=== PATIENT | female | born 1995 | race Caucasian/White ===

== ENCOUNTER 2024-05-25 11:34 | Outpatient (REF) | payer MEDICAID, SELFPAY ==
[2024-05-25 13:23] LABS: MANUAL DIFF FLAG NO
--- OUTSIDE RECORDS SUMMARY | 2024-05-25 13:24 | XMS_ITS | Encounter Summary ---
Author Organization [employer] Address [address] [facility] [facility] 7 [place] [address] Care Team Providers Care Surgical Nurse Practitioner Name Role Phone Unavailable Primary Care Provider Unavailabl e Reason for Visit * Reason Comments Pre-visit Planning SDOH screening compl eted on 08/07/2023 Encounter Details Date Type Department Care Team ([facility] st Contact Info) Description 05/13/2024 Patient Outreach [facility] [address] [place] [address] Amada Gunn MD [address] [place] [address] Pre-visit Planning (SDOH screening completed on 08/07/2023) Social History Tobacco Use Types Packs/Day Years Used Date Smoking Tobacco: Never Assessed Housing Stability Answer Date Recorded What is your housing situation today? I have richard carey 08/14/[address] you li ve. Do you have problems with any of the following? None of the above 08/14/2023 Food Insecurity Answer Date Recorded Within the past 12 months, y ou worried that your food would run out before you got money to buy more: Never True 08/14/2023 Within the past 12 months,th e food you bought just didn't last and you didn't have enough money to get more: Never True 03/2024 Transportation Answer Date Recorded In the past 12 months, has l ack of transportation kept you from medical appts, meetings, work or from getting things needed for daily living? No 08/14/2023 Utilities Answer Date Recorded In the past 12 months, has t he electric, gas, oil or water company threatened to shut off services in your home? No 08/14/2023 Comments Unknown Sex and Gender Information Value Date Recorded Sex Assigned at Female 03/04/2022 10:14 AM EDT Legal Sex Female 10:14 AM EDT Gender Identity Female 03/04/2022 10:14 AM EDT Sexual Orientation Straight 05/25/2024 11 :54 AM EST documented as of this encounter Progress Notes * Heidi Fermin - 05/13/2024 12:58 PM EST CC Heidi. Placed outbound call to patient to complete pre-visit planning. No answer at this time. Patient name and were not confirmed. CC left voicemail requesting return call. Direct contact information provided. documented in this encounter Plan of Treatment Upcoming Encounters Date Type Department Care Team ([facility] st Contact Info) Description 07/12/2024 11:00 AM EDT Telemedicine [facility] [address] [place] [address] Amada Gunn MD [address] [place] [address] documented as of this encounter Visit Diagnoses Not on filedocumented in this encounter
--- OUTSIDE RECORDS SUMMARY | 2024-05-25 13:24 | XMS_ITS | Encounter Summary ---
Author Organization [employer] Address [address] 7[address] [place] [address] Care Team Providers Care Community Development Aide Name Role Phone Unavailable Primary Care Provider Unavailabl e Encounter Details Date Type Department Care Team (Latest Contact Info) Description 05/25/2024 Travel Social History Tobacco Use Types Packs/Day Years Used Date Smoking Tobacco: Never Passive Smoke Exposure: Never Smokeless Tobacco: Never Alcohol Use Standard Drinks/Week Comments Never 0 (1 standard drink = 0.6 oz pur e alcohol) Depression Answer Date Recorded Patient Health Questionnaire-9 Score 1 05/25/2024 Patient Health Questionnaire-9 Score 1 05/25/2024 Last PHQ-9: Questionnaire Data Not on file 0 05/25/2024 Housing Stability Answer Date Recorded What is [...] off services in your home? No 08/14/2023 Depression Answer Date Recorded Patient Health Questionnaire-2 Score 0 05/25/2024 Internet Access Answer Date Recorded Internet Access Q1 Yes 05/25/2024 Internet Access Q2 Not on file 05/25/2024 Comments Unknown Sex and Gender Information Value Date Recorded Sex Assigned at Female 03/04/2022 10:14 AM EDT Legal Sex Female 10:14 AM EDT Gender Identity Female 03/04/2022 10:14 AM EDT Sexual Orientation Straight 05/25/2024 11 :54 AM EST documented as of this encounter Plan of Treatment Upcoming Encounters Date Type Department Care Team (Late st Contact Info) Description 07/12/2024 11:00 AM EDT Telemedicine [facility]ICINE [address] [place] [address] Amada Gunn MD [address] [place] [address] documented as of this encounter Visit Diagnoses Not on filedocumented in this encounter Additional Health Concerns Assessment Noted Time PHQ-9 Depression Total Score: 1 05/25/19 25 10:52 AM EST documented as of this encounter
--- OUTSIDE RECORDS SUMMARY | 2024-05-25 13:24 | XMS_ITS | Clinical Summary ---
Author Organization [employer] [facility] Address [address] [place] [address] 7 [place] [address] Care Team Providers Care Residence Leasing Agent Name Role Phone Unavailable Primary Care Provider Unavailabl e Allergies Active Allergy Reactions Criticality Noted Date Comments Penicillins Hives 05/25/2024 Medications aspirin-acetamin ophen-caffeine (Excedrin Migraine) 250-250-65 MG tabletIndication s:Migraine with aura and without status migrainosus, not intractable Take 1 tablet by mouth every 8 (eight) hours if needed for headaches for up to 10 days. 30 tablet 06/04/19 25 Active Active Problems Problem Noted Date Diagnosed Date Migraine with aura and witho ut status migrainosus, not intractable 05/25/2024 Iron (Fe) deficiency anemia 05/25/2024 Other chest pain 05/25/2024 Palpitations 05/25/2024 Encounters Date Type Department Care Team Description 05/25/2024 10:15 AM EST Office Visit [facility] [address] [place] [phone] Amada Gunn MD Migraine with aura and without status migrainosus, not intractable (Primary Dx); Iron deficiency anemia, unspecified iron deficiency anemia type; Other chest pain; Palpitations 05/25/2024 Travel 05/21/2024 Telephone [facility] [address] [place] [phone] Maggy Beck, MICKY Care Management (C3CM appointment reminder) 05/13/2024 Patient Outreach [facility] [address] [place] [address] Amada Gunn MD Pre-visit Planning (SDOH screening completed on 08/07/2023) 04/29/[address] [address] Maggy Beck, MICKY Care Management (C3 follow up call) 03/31/[address] [address] Maggy Beck RN Care Management ([facility] TC #[id number]) 03/04/[address] [address] Maggy Beck RN Care Management (C3 follow up call) from Last 3 Months Social History Tobacco Use Types Packs/Day Years Used Date Smoking Tobacco: Never Passive Smoke Exposure: Never Smokeless Tobacco: Never Tobacco Cessation:Counseling Given: Not Answered Alcohol Use Standard Drinks/Week Comments Never 0 [...] Orientation Straight 05/25/2024 11 :54 AM EST Last Filed Vital Signs Vital Sign Reading Time Taken Comments Blood Pressure 107/64 05/25/2024 10:45 AM EST Pulse 71 05/25/2024 10:45 AM EST Temperature 36.9 ??C (98.4 ??F) 05/25/2024 10:[address] Respiratory Rate 18 05/25/2024 10:45 AM EST Oxygen Saturation 100% 05/25/2024 10:45 AM EST Inhaled Oxygen Concentration - - Weight 58.7 kg (129 lb 6.4 oz) 05/25/2024 10:45 AM EST Height 165.1 cm (5' 5 ) 05/25/2024 10:45 AM EST Body Mass Index 21.53 05/25/2024 10:45 AM EST Plan of Treatment Upcoming Encounters Date Type Department Care Team (Late st Contact Info) Description 07/12/2024 11:00 AM EDT Telemedicine [facility] [address] [place] [address] Amada Gunn MD [address] [place] [address] Health Maintenance Due Date Last Done Comments HIV Screening 1994 IPV Vaccines (2 of 3 - 4-dose series) 05/01/1996 04/03/1996 Alcohol/Substance Use Screening 2006 Family Planning (PISQ) 2009 HPV Vaccines (3 - 3-dose series) 09/10/2011 06/18/2011, 08/10/2009, 08/10/2009 Hepatitis C Screening 01/02/2012 Pap Smear 2015 Cervical Cancer Screening 01/02/2024 HPV/Cotest 01/02/2024 COVID-19 Vaccine ( season) 2024 09/25/2020, 08/25/2020 Influenza Vaccine (#1) 2024 3, 06/02/2019, 06/02/2019, Additional history exists Depression Screening 05/25/2025 05/25/2024, 05/25/19 25 SDOH Screening 05/25/2025 05/25/2024 Tobacco Screening 05/25/2025 05/25/2024 DTaP/Tdap/Td Vaccines (9 - Td or Tdap) 05/12/2033 05/12/2023, 09/03/2019, 02/13/2018, Additional history exists Zoster Vaccines (1 of 2) 01/02/2044 RSV Patients and Patients Aged 60 years or older (1 - 1-dose 75+ series) 2069 Hepatitis B Vaccines Completed 04/03/1996, 1994, 1994 HIB Vaccines Aged Out No longer eligi ble based on patient's age to complete this topic Hepatitis A Vaccines Aged Out No long er eligible based on patient's age to complete this topic Meningococcal Vaccine Aged Out No issa erick eligible based on patient's age to complete this topic Pneumococcal Vaccine: Pediatrics (0 to 5 Years) and At-Risk Patients (6 to 64 Years) Aged Out No longer eligible based on patient's age to complete this topic RSV under 20 months Aged Out No longe r eligible based on patient's age to complete this topic Rotavirus Vaccines Aged Out No longer eligible based on patient's age to complete this topic Insurance [facility] STANDARD
--- OUTSIDE RECORDS SUMMARY | 2024-05-25 13:24 | XMS_ITS | Encounter Summary ---
Author Organization [employer] Address [address] 7[address] [place] [address] Care Team Providers Care Book Solicitor Name Role Phone Unavailable Primary Care Provider Unavailabl e Reason for Visit * Reason Comments Care Management C3CM follow up call Encounter Details Date Type Department Care Team ([facility] st Contact Info) Description 04/29/[address] [facility] [address] [place] [address] Maggy Beck, RN Care Management (C3CM follow up call) Social History Tobacco Use Types Packs/Day Years Used Date Smoking Tobacco: Never Assessed Housing Stability Answer Date Recorded What is your housing situation today? I have richard sing 08/14/[address] you li [...] as of this encounter Progress Notes * Maggy Beck - 04/29/2024 1:13 PM EST JOSE LUIS Beck RN placed outbound call to patient. Patient's name, and address confirmed.Patient states is doing well with no recent illnesses or emergency room visits. Patient and infant are doing well. Patient made aware of new patient appointment with Dr. Engle 05/25/24 10:15am, denies any barriers to attending this appointment. No further questions or concerns. CM reinforced direct contact information or CHW for any additional questions or concerns. Education provided on Walk-In Urgent Care located in [facility] of [facility]. Patient provided with after-hours line for [facility], , which offer night time triage service and option to transfer to investigations consultant provider if needed. Patient verbalizes understanding, and able to repeat back to display card writer. A followup call will be placed within 10 days, patient agrees with plan. documented in this encounter Plan of Treatment Upcoming Encounters Date Type Department Care Team (Late st Contact Info) Description 07/12/2024 11:00 AM EDT Telemedicine [facility] MEDICINE [address] [place] [address] Amada Gunn MD [address] [place] [address] documented as of this encounter Visit Diagnoses Not on filedocumented in this encounter
--- OUTSIDE RECORDS SUMMARY | 2024-05-25 13:24 | XMS_ITS | Encounter Summary ---
Author Organization [employer] Address [address] 7[address] [place] [address] Care Team Providers Care Clay Digger Name Role Phone Unavailable Primary Care Provider Unavailabl e Reason for Visit * Reason Comments Care Management C3 appointment rem constantine Encounter Details Date Type Department Care Team ([facility] st Contact Info) Description 05/21/2024 Telephone [facility] MED[facility] [address] [place] [address] Maggy Beck, RN Care Management (C3CM appointment reminder) Social History Tobacco Use Types Packs/Day Years [...] encounter Progress Notes * Maggy Beck - 05/21/2024 9:49 AM EST JOSE LUIS Beck RN placed outbound call to patient. Patient's name, and address confirmed.Patient states is doing well with no recent illnesses or emergency room visits. Appointment reminder given for new patient appointment on 05/25/24 10:[address] Engle. Patient denies any barriers to attending the appointment. Patient does not have any particular concerns for the provider. No further questions or concerns. CM reinforced direct contact information or CHW for any additional questions or concerns. Education provided on Walk-In Urgent Care located in [facility] of [facility]. Patient provided with after-hours line for [facility], , which offer night time triage service and option to transfer to piston maker provider if needed. Patient verbalizes understanding, and able to repeat back to copy writer. A follow up call will be placed within 10 days, patientagrees with plan. documented in this encounter Plan of Treatment Upcoming Encounters Date Type Department Care Team (Late st Contact Info) Description 07/12/2024 11:00 AM EDT Telemedicine [facility] MEDICINE [address] [place], [place] [phone] Amada Gunn MD [address] [place] [address] documented as of this encounter Visit Diagnoses Not on filedocumented in this encounter
--- OUTSIDE RECORDS SUMMARY | 2024-05-25 13:24 | XMS_ITS | Encounter Summary ---
Author Organization [employer] Address [address] [place] [address] [address] [address] Care Team Providers Care Meter Installer Name Role Phone Unavailable Primary Care Provider Unavailabl e Reason for Referral * Consultation (Routine) - Pending Review Specialty Diagnoses / Procedures Referred By Chapo cosme Referred To Contact Cardiology Diagnoses Other chest pain Palpitations Amada Gunn MD [address] [place] [address] Phone: tel: fax: Referral ID Status Reason Start Date Expiration Date Visits Requested Visits Authorized [id number] Pending Review Specialty Services Required 05/25/2024 05/25/2025 1 1 Reason for Visit * Reason Comments CHW - Office Visit New Patient Encounter Details Date Type Department Care Team (Late st Contact Info) Description 05/25/2024 10:15 AM EST Office Visit [facility] MED[facility]INE [address] [place], [place] [phone] Amada Gunn MD [address] [place], [place] [phone] Migraine with aura and without status migrainosus, not intractable (Primary Dx); Iron deficiency anemia, unspecified iron deficiency anemia type; Other chest pain; Palpitations Social History Tobacco Use Types Packs/Day Years [...] AM EST documented as of this encounter Last Filed Vital Signs Vital Sign Reading [...] Mass Index 21.53 05/25/2024 10:45 AM EST documented in this encounter Plan of Treatment Upcoming Encounters Date Type Department Care Team (Late st Contact Info) Description 07/12/2024 11:00 AM EDT Telemedicine [facility] MED[facility]INE [address] [place] [address] Amada Gunn MD [address] [place], [place] [phone] Scheduled Orders Name Type Priority Associated Diagnoses Orde r Schedule CBC auto differential Lab Routine Iron deficiency anemia, unspecified iron deficiency anemia type Expected: 05/25/2024 (Approximate), Expires: 05/25/2025 Comprehensive Metabolic Panel Lab Routine Palpitations Expected: 05/25/2024 (Approximate), Expires: 05/25/2025 Hemoglobin A1c Lab Routine Palpitations Expected: 05/25/2024 (Approximate), Expires: 05/25/2025 HIV-1/2 Antigen and Antibodies, Fourth Generation, with Reflexes Lab Routine Palpitations Expected: 05/25/2024 (Approximate), Expires: 05/25/2025 Hepatitis C Antibody with Reflex to HCV, RNA, Quantitative, Real-Time PCR Lab Routine Palpitations Expected: 05/25/2024, Expires: 05/25/2025 Lipid Panel, Standard Lab Routine Palpitations Expected: 05/25/2024 (Approximate), Expires: 05/25/2025 Vitamin D, 25-Hydroxy, Total, Immunoassay Lab Routine Palpitations Expected: 05/25/2024 (Approximate), Expires: 05/25/2025 TSH with Reflex to Free T4 Lab Routine Palpitations Expected: 05/25/2024 (Approximate), Expires: 05/25/2025 Scheduled Referrals Name Type Priority Associated Diagnoses Order Schedule Referral to Cardiology Outpatient Referral Routine Other chest pain Palpitations Expected: 05/25/2024 (Approximate), Expires: 05/25/2025 documented as of this encounter Visit Diagnoses Diagnosis Migraine with aura and without status migrainosus, not intractable- Primary Iron deficiency anemia, unspecified iron deficiency anemia type Other chest pain Palpitations documented in this encounter Additional Health Concerns Assessment Noted Time PHQ-9 Depression Total Score: 1 05/25/19 25 10:52 AM EST documented as of this encounter
--- OUTSIDE RECORDS SUMMARY | 2024-05-25 13:25 | XMS_ITS | Clinical Summary ---
Author Organization [facility] it Address [address] [place] [address] Care Team Providers Care Manager Group Home Name Role Phone Pierre Ang MD Primary Care Provider Allergies Active Allergy Reactions Criticality Noted Date Comments Penicillins Other Medium 09/10/2017 Medications Medication Sig Dispensed Refills Start Date End Date Status PNV no.95/ferrous fum/folic ac ( MULTIVITAMINS ORAL) Take 1 Tab by mouth daily. 10/24/2017 Active PNV no.95/ferrous fum/folic ac ( ORAL) Take 1 Tab by mouth daily. 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 Overall normal EFW 30%ile, AC 4%ile on 11/15/2019 Last Assessment & Plan: I discussed with patient and she will plan for BPP and visit Q Friday and NST Q . She will do daily kick counts which were explained to her today and call with any concerns due to possible increased risk of IUFD. Delivery at 39 weeks will be scheduled via for breech. Breech presentation, no version 10/31/2019 Overview (04/22/2024): 10/30 - presented for sciatica pain upon performing leopolds and cervical exam breech was suspected and then confirmed via bedside US. Head is in right upper quad of abd - foot is felt on vaginal exam as the presenting part. Last Assessment & Plan: Will schedule 39 week . Known medical problems 07/16/2019 Overview (04/22/2024): Anatomy scan completed on arch 03/24/2020 at 18 weeks and 4 days -Findings of a choroid plexus cyst with recommendations of completing a level 2 and consider genetic screening, she had a negative quad screen --level 2 completed at 22w5d wnl bilateral choroid plexus present, declined invasive testing. No further follow up indicated at this time Anemia affecting in third trimester Overview (04/22/2024): Ferrous fumarate BID Immunizations Name Administration Dates Next Due Influenza Quadravalent, MDCK , 0.5ml, preservative free (Flucelvax) 6mo and older 06/02/2019,02/13/2018 Tdap Tetanus diptheria acell ular pertussis (Boostrix; Adacel) 7yo and older 09/03/2019,02/13/2018 Surgical History Surgery Date Site/Laterality Comments OTHER SURGICAL HISTORY PROCEDURE: DENIES PREVIOUS SURGERY Family History Medical History Relation Name Comments Other: Other Brother sees a cardiolo gist for cardiac problems, has a murmur Other: Other Father surgery for ul cer Heart attack Maternal Grandfather Liver disease Maternal Grandmother Anemia Mother Hypertension Mother Brain Aneurysm Paternal Grandfather No Known Problems Paternal Grandmother No Known Problems Sister Breast cancer Neg Hx Cervical cancer Neg Hx Colon cancer Neg Hx Ovarian cancer Neg Hx Prostate cancer Neg Hx Uterine cancer Neg Hx Relation Name Status Comments Brother Alive Father Alive Maternal Grandfather Maternal Grandmother Mother Alive Paternal Grandfather Alive Paternal Grandmother Alive Sister Alive Social History Tobacco Use Types Packs/Day Years Used Date Smoking Tobacco: Never Smokeless Tobacco: Never Alcohol Use Standard Drinks/Week Comments No 0 (1 standard drink = 0.6 oz pur e alcohol) Sex and Gender Information Value Date Recorded Sex Assigned at Not on file Gender Identity Not on file Sexual Orientation Not on file Obstetrics History Plan of Treatment Health Maintenance Due Date Last Done Comments Hepatitis B Vaccines (1 of 3 - 19+ 3-dose series) 2013 Cervical Cancer Screening: Pap Smear 09/26/2020 09/26/2017, 09/26/2017, 09/26/2017, Additional history exists Depression Screening 04/03/2022 Hepatitis C Screening 04/03/2022 Social Influencers of Health Screening 04/03/2022 COVID-19 Vaccine (1 - season) 2024 Influenza Vaccine (#1) 2024 06/02/2019, 2017 DTaP,Tdap,and Td Vaccines (3 - Td or Tdap) 09/02/2029 09/03/2019, 02/13/2018 HIV Screening Completed 05/17/2019 HIB Vaccines Aged Out No longer eligi ble based on patient's age to complete this topic HPV Vaccines Aged Out No longer eligi ble based on patient's age to complete this topic Hepatitis A Vaccines Aged Out No long er eligible based on patient's age to complete this topic IPV Vaccines Aged Out No longer eligi ble based on patient's age to complete this topic MMR Vaccines Aged Out No longer eligi ble based on patient's age to complete this topic Meningococcal ACWY Vaccine Aged Out N o longer eligible based on patient's age to complete this topic Pneumococcal Vaccine: Pediatrics (0 to 5 Years) and At-Risk Patients (6 to 64 Years) Aged Out No longer eligible based on patient's age to complete this topic RSV Immunization Patients Under 20 months Aged Out No longer eligible based on patient's age to complete this topic Varicella Vaccines Aged Out No longer eligible based on patient's age to complete this topic Procedures Procedure Name Priority Date/Time Associated Diagnosis Comments HIV SCREENING Routine 05/17/2019 PAP SMEAR Routine 09/26/2017 from Last 3 Months or Most Recently Relevant to Health Maintenance Results * HIV Screening (05/17/2019) HIV Screening abstracted Historical Provider MD ANNA Dent * Pap smear (09/26/2017) 09/26/2017 Narrative HISTORICAL TESTING LAB RESULTING AGENCY - 10/01/2017 2:07 PM EDT [id number] THINPREP PAP, IMAGED: NEGATIVE FOR SQUAMOUS INTRAEPITHELIAL LESION AND MALIGNANCY ??. CARMITA IS PRESENT. HARRIS JENNIFER MILLER, CT(ASCP) (CASE ELECTRONICALLY SIGNED 10 01 2017) ADEQUACY: SATISFACTORY. ENDOCERVICAL/TRANSFORMATION ZONE COMPONENT PRESENT. SOURCE: THINPREP PAP HPV IF ASCUS, CERVICAL, IMAGED: CLINICAL INFORMATION: HPV IF DIAGNOSIS OF ASCUS. Z12.4, Z34.01, Adilene [place] Rad[facility] LAB CYTOLOGY ORDERAB LES HISTORICAL TESTING LAB RESULTING AGENCY from Last 3 Months or Most Recently Relevant to Health Maintenance Care Teams Manager Group Home Relationship Specialty Start Date End Date Pierre Ang MD [address] [place] [address] PCP - General Internal Medicine 09/14/21
[2024-05-25 13:30] LABS: Basophils Percent Auto 0.5 % (0-2); Eosinophils Absolute Auto 0.3 X10*3/uL (0.0-0.4); Hematocrit 36.8 % (37.0-47.0); Imm Gran Abs Auto 0.01 X10*3/uL (0.00-0.03); Imm Gran Pct Auto 0.1 % (0.0-0.4); Lymphocytes Absolute Auto 2.6 X10*3/uL (1.2-4.9); Lymphocytes Percent Auto 33.7 % (20-40); Mean Corpuscular HGB Conc 32.6 g/dl (31.0-35.0); Mean Corpuscular Hemoglobin 27.4 pg (27.0-33.0); Mean Platelet Volume 10.6 fL (9.4-12.3); Monocytes Absolute Auto 0.5 X10*3/uL (0.1-1.2); Neutrophils Absolute Auto 4.3 x10*3/uL (2.0-8.3); Neutrophils Percent Auto 55.7 % (45-73); Platelet Count 279 X10*3/uL (160-400); Red Blood Count 4.38 X10*6/uL (4.20-5.50); Red Cell Distribution Width 12.9 % (11.0-16.0); White Blood Count 7.8 X10*3/uL (4.8-10.8)
[2024-05-25 13:46] LABS: Estimated Average Glucose 91 mg/dL; Hemoglobin A1C 86.0803 umol/L; Hemoglobin A1c % 4.8 % (<6.0); Total Hemoglobin (HGBA1C) 3021.0266 umol/L
[2024-05-25 14:15] LABS: Alanine Aminotransferase 11 U/L (0-31); Albumin Level 4.5 g/dL (3.5-5.0); Alkaline Phosphatase 75 U/L (39-117); Anion Gap 9 (12-20); Aspartate Amino Transferase 20 U/L (5-31); Bilirubin Total 1.6 mg/dL (0.0-1.0); Blood Urea Nitrogen 13 mg/dL (9-16); Calcium 8.6 mg/dL (8.4-10.2); Carbon Dioxide 23 mmol/L (22-29); Chloride 108 mmol/L (96-108); Cholesterol 116 mg/dL (<200); Estimated Glomerular Filt Rate > 60; Glucose Random 88 mg/dL (60-115); HDL Cholesterol 46 mg/dL (>40); LDL Cholesterol Calculated 63 mg/dL (<100); Potassium 3.4 mmol/L (3.3-5.1); Sodium 137 mmol/L (135-145); Total Protein 8.4 g/dL (6.5-8.0); Triglycerides 38 mg/dL (<150)
[2024-05-25 14:19] LABS: TSH reflex Free T4 1.25 uIU/mL (0.32-4.0); Vitamin D 25-OH Total 18.9 ng/mL (>30)
[2024-05-26 08:40] LABS: HIV AB/AG Nonreactive (Nonreactive); HIV Num 1 0.07 S/CO (0.00-0.99); ~HepC Num1 0.16 S/CO (0.00-0.79); ~Hepatitis C Antibody Nonreactive (Nonreactive)
== END 2024-05-25 11:35 | disposition home or self-care (01) ==
LOC: HO.HHCL 11:34
PROVIDERS: Visit Provider Internal Medicine
DX: D50.9 Iron deficiency anemia, unspecified (principal); R00.2 Palpitations
CPT/HCPCS: 36415; 80053; 80061; 82306; 83036; 84443; 85025; 86803; 87389

== ENCOUNTER 2024-07-27 09:57 | Outpatient (REF) | payer MEDICAID, SELFPAY ==
--- NOTE | 2024-07-27 | EMG_ITS ---
Left median and ulnar motor and sensory studies were performed. Left radial sensory and median and lateral antecubital brachial sensory studies were performed and paraspinal muscles were tested with a needle. IMPRESSION: Mild left ulnar neuropathy across cubital tunnel. MD DON Blanton/KP / [id number]
--- NOTE | ~2024-07-27 | XR_ITS ---
EXAMINATION: XR SHOULDER 2 OR MORE VIEWS LEFT HISTORY: chronic pain numbness and tingling COMPARISON: There are no prior studies available for comparison. FINDINGS: Four views of the left shoulder are submitted. Osseous mineralization is normal. There is no fracture or dislocation. There is possible slight elevation of the distal clavicle with respect to the acromion. The glenohumeral and acromioclavicular joint spaces are preserved. The soft tissues are unremarkable. XR/XR shoulder LT min 2V IMPRESSION: Possible slight elevation of the distal clavicle which could indicate AC separation. Clinical correlation is recommended. Otherwise unremarkable examination of the left shoulder. Electronically signed by: Syd Villa MD 07/28/2024 12:39 PM EDT
--- OUTSIDE RECORDS SUMMARY | 2024-07-27 11:36 | XMS_ITS | Encounter Summary ---
Author Organization [employer] Address [address] [place] [address] [address] [place] [address] Care Team Providers Care Crop Or Grain Farmworker Name Role Phone Aamda Gunn MD Primary Care Provide r Reason for Referral * Neurology (Routine) - Authorized Specialty Diagnoses / Procedures Referred By Contac t Referred To Contact Diagnoses Acute pain of left shoulder Left arm pain Numbness and tingling Procedures Nerve conduction test Amada Gunn MD [address] [place] [id number] Phone: tel: fax: [address] Phone: tel: fax: Referral ID Status Reason Start Date Expiration Date V isits Requested Visits Authorized [id number] Authorized 07/12/2024 07/12/2025 1 1 Encounter Details Date Type Department Care Team (Late st Contact Info) Description 07/12/2024 11:00 AM EDT Telemedicine [facility] [address] [place] [phone] Amada Gunn MD [address] [place] [phone] Chronic left shoulder pain (Primary Dx); Left arm pain; Numbness and tingling; Vitamin D deficiency; Migraine with aura and without status migrainosus, not intractable Social History Tobacco Use Types Packs/Day Years [...] as of this encounter Progress Notes * Amada Kidd MD - 07/12/2024 11:00 AM EDT SUBJECTIVE: Amada Yanez is a 29 y.o. year old female who presents for Follow up . Acute Concerns: Patient reports acute on chronic left shoulder pain, she reports restricted motion of her shoulder and arm, she also reports numbness and tingling sensation on her left arm and left hand, she tells me this is happening for the for some time but has been worse lately Labs were reviewed with patient I let her know her vitamin D is low and I sent some supplements to the pharmacy Patient tells me she has an appointment with cardiology me to address palpitations Social History Social History Narrative Not on file Patient Active Problem List Diagnosis Migraine with aura and without status migrainosus, not intractable Iron (Fe) deficiency anemia Other chest pain Palpitations Chronic left shoulder pain Left arm pain Numbness and tingling Vitamin D deficiency No family history on file. Review of Systems Constitutional: Negative. HENT: Negative. Respiratory: Negative. Cardiovascular: Negative. Gastrointestinal: Negative. Musculoskeletal: Positive for arthralgias. Neurological: Positive for numbness. Follow Up: Follow up in about 6 months (around 01/12/2025) for chronic conditions . No current outpatient medications on file prior to visit. No current facility-administered medications on file prior to visit. Problem List Items Addressed This Visit Chronic left shoulder pain - Primary Acetaminophen as needed I will order an x-ray and nerve conduction test patient will be contacted with results Relevant Orders Nerve conduction test XR Shoulder 2+ Views Left Left arm pain Relevant Orders Nerve conduction test Numbness and tingling Relevant Orders Nerve conduction test Vitamin D deficiency Relevant Medications cholecalciferol (Vitamin D-3) 25 MCG (1000 UT) tablet Migraine with aura and without status migrainosus, not intractable I advise to avoid migraine triggers like red wine, chocolate, cheese, strong perfumes Patient has not had any headaches since last visit, advised to take Excedrin Migraine if she needs to documented in this encounter Miscellaneous Notes * Assessment & Plan Note - Amada iKdd MD - 07/12/2024 11:25 AM EDT Associated Problem(s): Migraine with aura and without status migrainosus, not intractable I advise to avoid migraine triggers like red wine, chocolate, cheese, strong perfumes Patient has not had any headaches since last visit, advised to take Excedrin Migraine if she needs to * Assessment & Plan Note - Amada Kidd MD - 07/12/2024 11:25 AM EDT Associated Problem(s): Chronic left shoulder pain Acetaminophen as needed I will order an x-ray and nerve conduction test patient will be contacted with results documented in this encounter Plan of Treatment Scheduled Orders Name Type Priority Associated Diagnoses Orde r Schedule Nerve conduction test Neurology Routine Chronic left shoulder pain Left arm pain Numbness and tingling Expected: 07/12/2024 (Approximate), Expires: 07/12/2025 XR Shoulder 2+ Views Left Imaging Routine Chronic left shoulder pain Expected: 07/12/2024, Expires: 07/12/2025 documented as of this encounter Visit Diagnoses Diagnosis Chronic left shoulder pain- Primary Pain in joint, shoulder region Left arm pain Pain in soft tissues of limb Numbness and tingling Disturbance of skin sensation Vitamin D deficiency Migraine with aura and without status migrainosus, not intractable documented in this encounter Additional Health Concerns Assessment Noted Time PHQ-9 Depression Total Score: 1 05/25/19 25 10:52 AM EST documented as of this encounter Care Teams Crop Or Grain Farmworker Relationship Specialty Start Date End Date Amada Gunn MD [address] [place] [address] PCP - General Internal Medicine 07/09/24 documented as of this encounter
--- OUTSIDE RECORDS SUMMARY | 2024-07-27 11:36 | XMS_ITS | Encounter Summary ---
Author Organization [employer] Address [address] [facility] [address] [place] [address] Care Team Providers Care Sack Sewer Machine Name Role Phone Amada Gunn MD Primary Care Provide r Reason for Visit * Reason Onset Date Comments Chart Prep 07/09/2024 Encounter Details Date Type Department Care Team ([facility] st Contact Info) Description 07/09/2024 Telephone [facility] [address] [place], [place] [phone] Amada Gunn MD [address] [place] [address] Chart Prep Social History Tobacco Use Types Packs/Day Years [...] AM EST documented as of this encounter Miscellaneous Notes * Telephone Encounter - Rocio Jorgensen [place] - 07/09/2024 9:20 AM EST Chart Prep Labs: done Images: done Vaccines due: yes Referrals: Ask patient if she asuncion her cardiology appt Screenings: pap smear Overdue care gaps: Sbirt, Oral Health, MALORIE-7 documented in this encounter Plan of Treatment Not on file documented as of this encounter Visit Diagnoses Not on filedocumented in this encounter Additional Health Concerns Assessment Noted Time PHQ-9 Depression Total Score: 1 05/25/19 10:52 AM EST documented as of this encounter Care Teams Sack Sewer Machine Relationship Specialty Start Date End Date Amada uGnn MD [address] [place] [address] PCP - General Internal Medicine 07/09/24 documented as of this encounter
--- OUTSIDE RECORDS SUMMARY | 2024-07-27 11:36 | XMS_ITS | Encounter Summary ---
Author Organization [employer] Address [address] [facility] [address] [place] [address] Care Team Providers Care Fire Eater Name Role Phone Unavailable Primary Care Provider Unavailabl e Encounter Details Date Type Department Care Team (Latest Contact Info) Description 07/05/2024 Travel Social History Tobacco Use Types Packs/Day [...] as of this encounter Plan of Treatment Not on file documented as of this encounter Visit Diagnoses Not on filedocumented in this encounter Additional Health Concerns Assessment Noted Time PHQ-9 Depression Total Score: 1 05/25/19 25 10:52 AM EST documented as of this encounter
--- OUTSIDE RECORDS SUMMARY | 2024-07-27 11:36 | XMS_ITS | Encounter Summary ---
Author Organization [employer] Address [address] [facility] [address] [place] [address] Care Team Providers Care Tobacco Stripping Machine Operator Name Role Phone Amada Gunn MD Primary Care Provide r Encounter Details Date Type Department Care Team ([facility] st Contact Info) Description 07/16/2024 Population Health Risk Score [facility] ([facility]) Department [address] [phone] Provider, Population Health Generic Social History Tobacco Use Types Packs/Day Years [...] documented as of this encounter Care Teams Tobacco Stripping Machine Operator Relationship Specialty Start Date End Date Amada Gunn MD [address] [place] [phone] PCP - General Internal Medicine 07/09/24 documented as of this encounter
--- OUTSIDE RECORDS SUMMARY | 2024-07-27 11:36 | XMS_ITS | Encounter Summary ---
Author Organization [employer] Address [address] [facility] [address] [place] [address] Care Team Providers Care Oncology Social Worker Name Role Phone Amada Gunn MD Primary Care Provide r Reason for Visit * Reason Comments Care Management [facility] graduation Encounter Details Date Type Department Care Team ([facility] Contact Info) Description 07/22/2024 Telephone [facility] MEDICINE [address] [place], [place] [phone] Amada Gunn MD [address] [place] [address] Care Management ([facility] graduation) Social History Tobacco Use Types Packs/Day Years [...] encounter Progress Notes * Maggy Beck - 07/22/2024 9:52 AM EDT Graduation CM Maggy Beck RN placed outbound call to patient. Patient's name, and address confirmed.Patient states is doing well with no recent illnesses or emergency room visits. Patient and infant are doing well. is turning 1 years old and is doing well, walking and meeting developmental milestones. experienced some constipation with the change to milk, but that has resolved. has been compliant with optics manufacturing technician appointments and vaccinations. Patient was able to schedule cardiology appointment in september. Baffle Installer reviewed recent pcp appointment with patient and patientis scheduled for nerve conduction study on Friday. Patient is also ordered for xrays and states that she is going to do them on the same day as the nerve conduction test. Patient also reports that she has not had any migraines. No further questions or concerns. CM reinforced direct contact information or CHW for any additional questions or concerns. Education provided on Walk-In Urgent Care located in [facility] of [facility]. Patient provided with after-hours line for [facility], , which offer night time triage service and option to transfer to carbon brush maker provider if needed. CM discussed with the patient progress made towards established goals. Patient notified is being graduated from the Care Management Program. Patient was educated on how to receive care management services in the future. Patient agrees with the plan and will contact us if any future needs arise. documented in this encounter Plan of Treatment Not on file documented as of this encounter Visit Diagnoses Not on filedocumented in this encounter Additional Health Concerns Assessment Noted Time PHQ-9 Depression Total Score: 1 05/25/19 10:52 AM EST documented as of this encounter Care Teams Oncology Social Worker Relationship Specialty Start Date End Date Amada Gunn MD [address] [place] [address] PCP - General Internal Medicine 07/09/24 documented as of this encounter
--- OUTSIDE RECORDS SUMMARY | 2024-07-27 11:37 | XMS_ITS | Encounter Summary ---
Author Organization [employer] Address [address] [facility] [address]t [place] [address] Care Team Providers Care Rib Stiffener And Heel Dipper Name Role Phone Unavailable Primary Care Provider Unavailabl e Reason for Visit * Reason Comments Care Management [facility] follow up call Encounter Details Date Type Department Care Team ([facility] st Contact Info) Description 06/28/2024 Telephone [facility] MEDICINE [address] [place] [address] Maggy Beck Care Management ([facility] follow up call) Social [...] this encounter Progress Notes * Maggy Beck RN - 06/28/2024 1:19 PM EST CM Maggy Beck RN placed outbound call to patient. Patient's name, and address confirmed.Patient states is doing well with no recent illnesses or emergency room visits. Patient and are doing well. Patient reports that she has not had any bad migraines since last call. She was ableto picking machine operator helper the excedrin, but has not had to use it yet. Patient has not heard from cardiology office regarding scheduling an appointment. Patient is going to call this week to schedule appointment. No further questions or concerns. CM reinforced direct contact information or CHW for any additional questions or concerns. Education provided on Walk-In Urgent Care located in [facility] of [facility]. Patient provided with after-hours line for [facility], , which offer night time triage service and option to transfer to carbon sequestration plant engineer provider if needed. Patient verbalizes understanding, and able to repeat back to principal technical writer. A follow up call will be [...]
--- OUTSIDE RECORDS SUMMARY | 2024-07-27 11:37 | XMS_ITS | Encounter Summary ---
Author Organization [employer] Address [address] [place] [address] Care Team Providers Care Certified Dietary Manager Name Role Phone Amada Gunn MD Primary Care Provide r Encounter Details Date Type Department Care Team (Latest Contact Info) Description 07/12/2024 Travel Social History Tobacco Use Types Packs/Day [...] documented as of this encounter Care Teams Certified Dietary Manager Relationship Specialty Start Date End Date Amada Gunn MD [address] [place] [address] PCP - General Internal Medicine 07/09/24 documented as of this encounter
--- OUTSIDE RECORDS SUMMARY | 2024-07-27 11:37 | XMS_ITS | Encounter Summary ---
Author Organization [employer] Address [address] [place] [address] Care Team Providers Care Net Software Architect Name Role Phone Pierre Ang MD Primary Care Provider Reason for Visit * Reason Comments Headache W/dizziness x 3 days Encounter Details Date Type Department Care Team (Late st Contact Info) Description 07/05/2024 12:17 AM EST - 07/05/2024 2:21 AM EST Emergency [facility] Emergency [address] [place] [id number] Influenza A (Primary Dx) Discharge Disposition: Home or Self Care Social History Tobacco Use Types Packs/Day Years Used Date Smoking Tobacco: Never Smokeless Tobacco: Never Alcohol Use Standard Drinks/Week Comments No 0 (1 standard drink = 0.6 oz pur e alcohol) Comments Unknown Sex and Gender Information Value Date Recorded Sex Assigned at Not on file Legal Sex Female 2:13 PM EST Gender Identity Not on file Sexual Orientation Not on file documented as of this encounter Last Filed Vital Signs Vital Sign Reading Time Taken Comments Blood Pressure 104/70 07/05/2024 12:35 AM EST Pulse 100 07/05/2024 12:35 AM EST Temperature 37.4 ??C (99.3 ??F) 07/05/2024 12:[address] Respiratory Rate 20 07/05/2024 12:35 AM EST Oxygen Saturation 100% 07/05/2024 12:35 AM EST Inhaled Oxygen Concentration - - Weight 58.5 kg (129 lb) 07/04/2024 10:38 PM EST Height 165.1 cm (5' 5 ) 07/04/2024 10:38 PM EST Body Mass Index 21.47 07/04/2024 10:38 PM EST documented in this encounter Discharge Instructions * Discharge Instructions* DOUGLAS Catalan - 07/05/2024 12:19 AM EST You tested positive for a common seasonal virus (influenza A). There is no treatment for this -- the body will get rid of it on its own. Drink plenty of fluids. Viruses can cause dehydration which in turn can cause a lot of side effectssuch as weakness, dizziness, lightheadedness, weakness, fatigue and body aches. Take tylenol and ibuprofen as needed for aches, pains and fevers. Wash your hands frequently. Get plenty of rest! * Attachments The following attachments cannot be sent through Care Everywhere. * Influenza (Zimbabwean) documented in this encounter Medications at Time of Discharge PNV no.95/ferrous fum/folic ac ( MULTIVITAMINS ORAL) Take 1 Tab by mouth daily. 10/24/2017 PNV no.95/ferrous fum/folic ac ( ORAL) Take 1 Tab by mouth daily. 05/17/2019 documented as of this encounter Discharge Disposition Disposition Code Departure Means Destination Comment s Home or Self Care documented in this encounter Progress Notes * Tabby Preston RN - 07/04/2024 10:33 PM EST Pt C/O headache, jaw pain, right flank pain, and bone pain . Pt states her daughter just got over flu A. Pt states she can't feel when she needs to urinate. Her only indication of needing to void isbladder pain. Pt endorses fever, chills, intermittent CP. Denies cough, vomiting and diarrhea. * DOUGLAS Catalan - 07/04/2024 10:22 PM EST [facility] Emergency Department Encounter Note Patient Name: Amada Yanez Initial Evaluation: 07/04/2024 : 1995 Patient's PCP: Pierre Ang MD Emergency Physician: DOUGLAS Bocanegra History of Present Illness Chief Complaint: Chief Complaint Patient presents with Headache W/dizziness x 3 days HPI: Amada is a pleasant 29-year-old female who denies any prior medical history, presents for evaluation of flulike symptoms over the last 3 days. Her daughter recently had influenza A, she has since recovered. Patient now complains of subjective fevers, generalized headache, and is more so bothered by myalgias and arthralgias. She has taken a few doses of Tylenol, has not tried NSAIDs or other OTC remedies. No thunderclap. She is not anticoagulated. No recent head trauma. ROS: I have performed a ROS with the pertinent positives and negatives documented in the history ofpresent illness. Previous History History reviewed. No pertinent past medical history. Past Surgical History: Procedure Laterality Date SECTION TUBAL LIGATION Social History Tobacco Use Smoking status: Never Smokeless tobacco: Never Vaping Use Vaping status: Never Used Substance Use Topics Alcohol use: No Drug use: No Family History Problem Relation Name Age of Onset Hypertension Mother Anemia Mother Other (Other: Other) Father surgery for ulcer No Known Problems Sister Other (Other: Other) Brother sees a furnace combustion analyst for cardiac problems, has a murmur Liver disease Maternal Grandmother Heart attack Maternal Grandfather No Known Problems Paternal Grandmother Brain Aneurysm Paternal Grandfather Breast cancer Neg Hx Colon cancer Neg Hx Ovarian cancer Neg Hx Prostate cancer Neg Hx Cervical cancer Neg Hx Uterine cancer Neg Hx is allergic to penicillins. No current facility-administered medications on file prior to encounter. Current Outpatient Medications on File Prior to Encounter Medication Sig Dispense Refill PNV no.95/ferrous fum/folic ac ( MULTIVITAMINS ORAL) Take 1 Tab by mouth daily. PNV no.95/ferrous fum/folic ac ( ORAL) Take 1 Tab by mouth daily. Physical Exam ED Triage Vitals [07/04/24 2238] Temp Heart Rate Resp BP 37.4 ??C (99.3 ??F) 109 16 99/75 SpO2 Temp Source Heart Rate Source Patient Position 98 % Oral -- Sitting BP Location FiO2 (%) Right arm;Upper -- GENERAL: Non-toxic appearing, no acute distress. SKIN: [place], warm, dry. HEENT: EOMI. normocephalic, atraumatic. NECK: Supple, full ROM. CARDIOVASCULAR: Heart regular rate and rhythm. No discernible MRG. PULMONARY: Breathing adequately on room air. CTAB. ABDOMINAL: Soft, nondistended, nontender throughout. MUSCULOSKELETAL: Nonpainful and purposeful movements of all extremities bilaterally, equal strengthbilaterally NEURO: AOx3 PSYCHIATRIC: Normal affect, fluid speech, good eye contact and appropriate demeanor. Results Labs Reviewed RESPIRATORY VIRUS PANEL MOLECULAR STUDY - Abnormal Result Value Adenovirus Detection by PCR Not Detected Influenza B PCR Not Detected Coronavirus 229E Not Detected Coronavirus HKU1 Not Detected Coronavirus OC43 Not Detected Coronavirus NL63 Not Detected Parainfluenza Virus 1 Not Detected Parainfluenza Virus 2 Not Detected Parainfluenza Virus 3 Not Detected Parainfluenza Virus 4 Not Detected RSV PCR Not Detected Human Metapneumovirus A and B Not Detected Rhinovirus/Enterovirus Not Detected Bordetella pertussis Not Detected Bordetella parapertussis Not Detected Influenza A H3 Detected (*) Mycoplasma pneumo by PCR Not Detected Chlamydia pneumoniae Not Detected SARS COV-2 Not Detected Narrative: Testing was performed using the [employer] Respiratory Pathogen PCR Assay. All results must be correlated with the clinical findings. Results should not be used as the sole basis for diagnosis. False Negative results may occur from the presence of sequence variants in the region targeted by the assay or the presence of inhibitors. Results may be affected by concurrent antiviral/antimicrobial therapy or levels of organisms that are below the limit of detection. COMPREHENSIVE METABOLIC PANEL - Abnormal Sodium 132 (*) Potassium 3.2 (*) Chloride 99 CO2 21 Anion Gap 12 (*) Glucose 143 (*) BUN 9 Creatinine 0.60 eGFR 124 BUN/Creatinine Ratio 15.0 Calcium 9.3 AST (SGOT) 26 ALT (SGPT) 38 Alkaline Phosphatase 74 Total Protein 8.4 (*) Albumin 4.3 Total Bilirubin 1.2 MAGNESIUM - Abnormal Magnesium 1.8 (*) CBC WITH AUTO DIFFERENTIAL - Abnormal WBC 12.4 (*) RBC 4.60 Hemoglobin 12.6 Hematocrit 39.3 MCV 85.1 MCH 27.3 MCHC 32.1 RDW 13.2 Platelets 298 MPV 9.8 NRBC 0.0 NRBC Absolute 0.00 Neutrophils Relative 82.3 Lymphocytes Relative 8.6 Monocytes Relative 8.1 Eosinophils Relative 0.5 Basophils Relative 0.2 Immature Granulocytes Relative 0.3 Neutrophils Absolute 10.23 (*) Lymphocytes Absolute 1.07 Monocytes Absolute 1.01 (*) Eosinophils Absolute 0.06 Basophils Absolute 0.02 Immature Granulocytes Absolute 0.04 (*) TROPONIN I HIGH SENSITIVITY - Normal High Sensitivity Troponin I 3 Narrative: High levels of biotin in samples may falsely decrease hsTroponin values. Use caution when interpreting hsTroponin results in patients taking biotin who exhibit renal impairment (eGFR <60) or in patients taking more than 20 mg/day of biotin. TROPONIN I HIGH SENSITIVITY - Normal High Sensitivity Troponin I <3 Narrative: High levels of biotin in samples may falsely decrease hsTroponin values. Use caution when interpreting hsTroponin results in patients taking biotin who exhibit renal impairment (eGFR <60) or in patients taking more than 20 mg/day of biotin. LIPASE - Normal Lipase 24 B-TYPE NATRIURETIC PEPTIDE - Normal BNP 7 CBC AND DIFFERENTIAL Narrative: The following orders were created for panel order CBC and differential. Procedure Abnormality Status --------- ------ CBC auto differential[[id number]] Abnormal Final result Please view results for these tests on the individual orders. POC , URINE DIAGNOSTIC Abnormal Labs Reviewed RESPIRATORY VIRUS PANEL MOLECULAR STUDY - Abnormal; Notable for the following components: Result Value Influenza A H3 Detected (*) All other components within normal limits Narrative: Testing was performed using the [employer] Respiratory Pathogen PCR Assay. All results must be correlated with the clinical findings. Results should not be used as the sole basis for diagnosis. False Negative results may occur from the presence of sequence variants in the region targeted by the assay or the presence of inhibitors. Results may be affected by concurrent antiviral/antimicrobial therapy or levels of organisms that are below the limit of detection. COMPREHENSIVE METABOLIC PANEL - Abnormal; Notable for the following components: Sodium 132 (*) Potassium 3.2 (*) Anion Gap 12 (*) Glucose 143 (*) Total Protein 8.4 (*) All other components within normal limits MAGNESIUM - Abnormal; Notable for the following components: Magnesium 1.8 (*) All other components within normal limits CBC WITH AUTO DIFFERENTIAL - Abnormal; Notable for the following components: WBC 12.4 (*) Neutrophils Absolute 10.23 (*) Monocytes Absolute 1.01 (*) Immature Granulocytes Absolute 0.04 (*) All other components within normal limits XR Chest 2 Views ED Interpretation 2-view radiographs of the chest independently reviewed, demonstrating no obvious consolidative pattern, effusion, or pneumothorax. No obvious bony deformity. Cardiac silhouette WNL. Trachea midline. I have discussed the incidental/abnormal imaging and/or lab abnormalities with the patient and haveinstructed them the need for further evaluation and workup with their primary care doctor. I have provided the patient with a paper copy of the abnormality. The laboratory results, imaging results and other diagnostic exam results were reviewed in the EMR. EKG Interpretation Comparison May 04, 2021 Ventricular rate 90 bpm QT/QTc 348/425 ms No acute ischemic changes, no STEMI. Critical Care Time None Differential Diagnosis Influenza Viral syndrome Upper respiratory infection Myalgias Lyme disease ? Medical Decision Making On initial assessment she is mildly uncomfortable appearing however nontoxic, no acute distress, hemodynamically stable and afebrile. Physical exam is unremarkable. Considering her vague complaints, she underwent laboratory workup in the waiting room. She does have a mild hypokalemia and hypomagnesemia which will be repleted orally here today. CXR without acute cardiopulmonary disease process by my independent assessment. EKG shows chronic appearing T wave abnormalities, no STEMI or acute ischemia. Troponins flat/negative x 2. In this otherwise young and healthy 29-year-old female with no cardiac risk factors, I doubt ACS. She is mildly tachycardic to 109 on arrival here, but without any respiratory complaints, she is not hypoxic, no cough or hemoptysis-do not suspect PE, and she has alternative explanation for her tachycardia considering her respiratory panel is positive for influenza A, correlating with her symptoms and history. She unfortunately is out of the window to initiate Tamiflu. We discussed symptomatic management, supportive care, hydration. Will bolus fluids, give Toradol. Medically and hemodynamically stable, safe for discharge. Discussed this plan with the patient who is agreeable. Red flag symptoms and return precautions discussed, all questions asked and answered, plan for discharge with outpatient follow-up. [employer] dictation software was utilized for documentation and may have resulted in unintentional typographical errors. *All documented times are approximate and may not reflect exact time of care rendered or intervention.* Clinical Impressions as of 07/05/24 0036 Influenza A Medications magnesium oxide (MAG-OX) tablet 400 mg (has no administration in time range) potassium chloride (KLOR-CON M20) CR tablet 20 mEq (has no administration in time range) lactated Ringer's bolus 1,000 mL (has no administration in time range) ketorolac (TORADOL) injection 15 mg (has no administration in time range) Procedures Procedures Diagnosis 1. Influenza A Disposition Discharge ED Prescriptions None Physician Attestation Electronically signed by DOUGLAS Bocanegra PA 07/05/24 0036 Cosigned by Diallo Parker MD at 07/10/2024 7:51 AM EST Associated attestation - Diallo Parker MD - 07/10/2024 7:51 AM EST The PA has seen, evaluated, and treated the patient. I, Dr. Parker, have reviewed the record and agree with the documentation as written, except as noted. Diallo Parker MD documented in this encounter Plan of Treatment Not on file documented as of this encounter Procedures Procedure Name Priority Date/Time Associated Diagnosis Comments ECG ANNOTATED 07/05/2024 ECG 12-LEAD STAT 07/04/2024 11:32 PM EST TROPONIN I HIGH SENSITIVITY STAT 07/04/2024 11:30 PM EST B-TYPE NATRIURETIC PEPTIDE STAT 07/04/2024 11:30 PM EST XR CHEST 2 VIEWS STAT 07/04/2024 11:0 2 PM EST ECG 12-LEAD STAT 07/04/2024 10:50 PM EST TROPONIN I HIGH SENSITIVITY STAT 07/04/2024 10:47 PM EST CBC WITH AUTO DIFFERENTIAL STAT 07/04/2024 10:47 PM EST CBC AND DIFFERENTIAL STAT 07/04/2024 10:47 PM EST MAGNESIUM STAT 07/04/2024 10:47 PM EST LIPASE STAT 07/04/2024 10:47 PM EST COMPREHENSIVE METABOLIC PANEL STAT 07/04/2024 10:47 PM EST RESPIRATORY VIRUS PANEL MOLECULAR STUDY STAT 07/04/2024 10:42 PM EST documented in this encounter Results * ECG-Annotated (07/05/2024) Provider Onbase MD ECG ORDERABLES Final Result * ECG 12 lead (07/04/2024 11:32 PM EST) Ventricular Rate ECG 92 BPM GEMUSE Atrial Rate 92 BPM GEMUSE P-R Interval 132 ms GEMUSE QRS Duration 76 ms GEMUSE Q-T Interval 332 ms GEMUSE QTc 410 ms GEMUSE P Wave [place] 58 degrees GEMUSE R [place] 64 degrees GEMUSE T [place] -31 degrees GEMUSE ECG Interpretation Normal sinus rhythm ST and T wave abnormality, consider inferior ischemia ST and T wave abnormality, consider anterior ischemia Abnormal ECG When compared with ECG of 04-JUL-2024 22:50, (unconfirmed) No significant change was found Confirmed by Florecita MERINO JOHN ([id number]) on 07/05/2024 7:59:06 PM GEMUSE 07/04/2024 11:3 2 PM EST 07/05/2024 7:59 PM EST Kenn Chavez MD ECG ORDERABLES Final Res ult GEMUSE * B-type natriuretic peptide (07/04/2024 11:30 PM EST) BNP 7 <=100 pcg/mL LAB CHEMISTRY METHOD 07/05/2024 12:14 AM EST [facility] Blood Venous blood specimen / Unknown Venipuncture / Unknown 07/04/2024 11:30 PM EST 07/04/2024 11:37 PM EST Kenn Chavez MD LAB BLOOD ORDERABLES Marisa l Result Performing Organization Address [facility]/ZIP Co de Phone Number [facility] [address] [place] [address], * Troponin I high sensitivity (07/04/2024 11:30 PM EST) High Sensitivity Troponin I <3 <=54 ng/L LAB CHEMISTRY METHOD 07/05/2024 12:06 AM EST [facility] Blood Venous blood specimen / Unknown Venipuncture / Unknown 07/04/2024 11:30 PM EST 07/04/2024 11:37 PM EST Narrative [facility] - 07/05/2024 12:06 AM EST High levels of biotin in samples may falsely decrease hsTroponin values. ??Use caution when interpreting hsTroponin results in patients taking biotin who exhibit renal impairment (eGFR <60) or in patients taking more than 20 mg/day of biotin. Kenn Chavez MD LAB BLOOD ORDERABLES Marisa l Result Performing Organization Address [facility] Co de Phone Number [facility] [address] [place] [address], * XR Chest 2 Views (07/04/2024 11:02 PM EST) Anatomical Region Laterality Modality Body Radiographic Diane ging 07/05/2024 8:13 AM EST Impressions 07/05/2024 8:14 AM EST Normal chest radiographs. -------- FINAL REPORT -------- Dictated By: Fernando Trevino Dictated Date: 07/05/2024 08:13 ET Assigned Physician: Fernando Trevino Reviewed and Electronically Signed By: Fernando Trevino Signed Date: 07/05/2024 08:14 ET Workstation ID: [id number] Transcribed By: Self Edit Transcribed Date: 07/05/2024 08:13 ET Narrative 07/05/2024 8:14 AM EST PROCEDURE: PA and lateral radiographs of the chest. HISTORY: chest pain. COMPARISON: 05/04/2021. FINDINGS: The heart, mediastinum, lungs, pleural spaces, and bony thorax are normal. Procedure Note Fernando Trevino MD - 07/05/2024 PROCEDURE: PA and lateral radiographs of the chest. HISTORY: chest pain. COMPARISON: 05/04/2021. FINDINGS: The heart, mediastinum, lungs, pleural spaces, and bony thorax arenormal. IMPRESSION: Normal chest radiographs. -------- FINAL REPORT -------- Dictated By: Fernando Trevino Dictated Date: 07/05/2024 08:13 ET Assigned Physician: Fernando Trevino Reviewed and Electronically Signed By: Fernando Trevino Signed Date: 07/05/2024 08:14 ET Workstation ID: [id number] Transcribed By: Self Edit Transcribed Date: 07/05/2024 08:13 ET Kenn Chavez MD IMG XR PROCEDURES Final R esult * ECG 12 lead (07/04/2024 10:50 PM EST) Ventricular Rate ECG 90 BPM GEMUSE Atrial Rate 90 BPM GEMUSE P-R Interval 134 ms GEMUSE QRS Duration 78 ms GEMUSE Q-T Interval 348 ms GEMUSE QTc 425 ms GEMUSE P Wave [place] 57 degrees GEMUSE R [place] 65 degrees GEMUSE T [place] -26 degrees GEMUSE ECG Interpretation Normal sinus rhythm ST and T wave abnormality, consider inferior ischemia ST and T wave abnormality, consider anterior ischemia Abnormal ECG When compared with ECG of 04-MAY-2021 19:32, Vent. rate has increased BY ??33 BPM T wave inversion more evident in Inferior leads Confirmed by Florecita MERINO JOHN ([id number]) on 07/05/2024 7:56:36 PM GEMUSE 07/04/2024 10:5 0 PM EST 07/05/2024 7:56 PM EST Kenn Chavez MD ECG ORDERABLES Final Res ult GEMUSE * (ABNORMAL) CBC auto differential (07/04/2024 10:47 PM EST) WBC 12.4(H) 4.8 - 10.8 K/mcL LAB HEMETOLOGY METHOD 07/04/2024 10:59 PM EST [facility] RBC 4.60 3.80 - 4.80 M/mcL LAB HEMETOLOGY METHOD 07/04/2024 10:59 PM EST [facility] Hemoglobin 12.6 11.5 - 16.0 g/dL LAB HEMETOLOGY METHOD 07/04/2024 10:59 PM [facility] Hematocrit 39.3 35.0 - 47.0 % LAB HEMETOLOGY METHOD 07/04/2024 10:59 PM [facility] MCV 85.1 79.0 - 98.0 FL LAB HEMETOLOGY METHOD 07/04/2024 10:59 PM EST [facility] MCH 27.3 27.0 - 32.0 pcg LAB HEMETOLOGY METHOD 07/04/2024 10:59 PM EST [facility] MCHC 32.1 32.0 - 37.0 g/dL LAB HEMETOLOGY METHOD 07/04/2024 10:59 PM [facility] RDW 13.2 11.0 - 15.0 % LAB HEMETOLOGY METHOD 07/04/2024 10:59 PM [facility] Platelets 298 130 - 400 K/mcL LAB HEMETOLOGY METHOD 07/04/2024 10:59 PM [facility] MPV 9.8 7.0 - 11.0 FL LAB HEMETOLOGY METHOD 07/04/2024 10:59 PM [facility] NRBC 0.0 <1.0 % LAB HEMETOLOGY METHOD 07/04/2024 10:59 PM [facility] NRBC Absolute 0.00 <0.10 K/mcL LAB HEMETOLOGY METHOD 07/04/2024 10:59 PM [facility] Neutrophils Relative 82.3 % LAB HEMETOLOGY METHOD 07/04/2024 10:59 PM [facility] Lymphocytes Relative 8.6 % LAB HEMETOLOGY METHOD 07/04/2024 10:59 PM [facility] Monocytes Relative 8.1 % LAB HEMETOLOGY METHOD 07/04/2024 10:59 PM [facility] Eosinophils Relative 0.5 % LAB HEMETOLOGY METHOD 07/04/2024 10:59 PM [facility] Basophils Relative 0.2 % LAB HEMETOLOGY METHOD 07/04/2024 10:59 PM [facility] Immature Granulocytes Relative 0.3 % LAB HEMETOLOGY METHOD 07/04/2024 10:59 PM [facility] Neutrophils Absolute 10.23(H) 1.50 - 7.00 K/mcL LAB HEMETOLOGY METHOD 07/04/2024 10:59 PM [facility] Lymphocytes Absolute 1.07 1.00 - 5.00 K/mcL LAB HEMETOLOGY METHOD 07/04/2024 10:59 PM [facility] Monocytes Absolute 1.01(H) 0.20 - 1.00 K/mcL LAB HEMETOLOGY METHOD 07/04/2024 10:59 PM [facility] Eosinophils Absolute 0.06 0.00 - 0.50 K/mcL LAB HEMETOLOGY METHOD 07/04/2024 10:59 PM [facility] Basophils Absolute 0.02 0.00 - 0.20 K/mcL LAB HEMETOLOGY METHOD 07/04/2024 10:59 PM [facility] Immature Granulocytes Absolute 0.04(H) 0.00 - 0.03 K/mcL LAB HEMETOLOGY METHOD 07/04/2024 10:59 PM EST [facility] Blood Venous blood specimen / Unknown Venipuncture / Unknown 07/04/2024 10:47 PM EST 07/04/2024 10:52 PM EST us Kenn Chavez MD LAB BLOOD ORDERABLES Marisa l Result Performing Organization Address City/[facility]/ZIP Co de Phone Number [facility] [address] [place] [address], [place] [phone] * (ABNORMAL) Magnesium (07/04/2024 10:47 PM EST) Pathologist [facility] Magnesium 1.8(L) 1.9 - 2.6 mg/dL LAB CHEMISTRY METHOD 07/04/2024 11:53 PM EST [facility] Blood Venous blood specimen / Unknown Venipuncture / Unknown 07/04/2024 10:47 PM EST 07/04/2024 10:52 PM EST us Kenn Chavez MD LAB BLOOD ORDERABLES Marisa l Result Performing Organization Address [facility]/ZIP Co de Phone Number [facility] [address] [place] [address], [place] [phone] * Lipase (07/04/2024 10:47 PM EST) Pathologist [facility] Lipase 24 13 - 75 unit/L LAB CHEMISTRY METHOD 07/04/2024 11:53 PM EST [facility] Blood Venous blood specimen / Unknown Venipuncture / Unknown 07/04/2024 10:47 PM EST 07/04/2024 10:52 PM EST us Kenn Chavez MD LAB BLOOD ORDERABLES Marisa l Result Performing Organization Address City/[facility]/ZIP Co de Phone Number [facility] [address] [place] [address], [place] [phone] * (ABNORMAL) Comprehensive metabolic panel (07/04/2024 10:47 PM EST) Sodium 132(L) 133 - 145 mmol/L LAB CHEMISTRY METHOD 07/05/2024 12:03 AM [facility] Potassium 3.2(L) 3.5 - 5.5 mmol/L LAB CHEMISTRY METHOD 07/05/2024 12:03 AM [facility] Chloride 99 96 - 110 mmol/L LAB CHEMISTRY METHOD 07/05/2024 12:03 AM [facility] CO2 21 21 - 32 mmol/L LAB CHEMISTRY METHOD 07/05/2024 12:03 AM [facility] Anion Gap 12(H) 3 - 11 LAB CHEMISTRY METHOD 07/05/2024 12:03 AM [facility] Glucose 143(H) 70 - 100 mg/dL LAB CHEMISTRY METHOD 07/05/2024 12:03 AM [facility] BUN 9 5 - 25 mg/dL LAB CHEMISTRY METHOD 07/05/2024 12:03 AM [facility] Creatinine 0.60 0.50 - 1.10 mg/dL LAB CHEMISTRY METHOD 07/05/2024 12:03 AM [facility] eGFR 124 >=60 mL/min/1. 73m2 LAB CHEMISTRY METHOD 07/05/2024 12:03 AM [facility] Comment:Calculation based on the??Chronic Kidney Disease Epidemiology Collaboration (CKD-EPI) equation refit??without adjustment for race. BUN/Creatinine Ratio 15.0 LAB CHEMISTRY METHOD 07/05/2024 12:03 AM [facility] Calcium 9.3 8.5 - 10.5 mg/dL LAB CHEMISTRY METHOD 07/05/2024 12:03 AM [facility] AST (SGOT) 26 10 - 42 unit/L LAB CHEMISTRY METHOD 07/05/2024 12:03 AM [facility] ALT (SGPT) 38 10 - 60 unit/L LAB CHEMISTRY METHOD 07/05/2024 12:03 AM [facility] Alkaline Phosphatase 74 42 - 121 unit/L LAB CHEMISTRY METHOD 07/05/2024 12:03 AM [facility] Total Protein 8.4(H) 6.0 - 8.0 g/dL LAB CHEMISTRY METHOD 07/05/2024 12:03 AM [facility] Albumin 4.3 3.2 - 5.0 g/dL LAB CHEMISTRY METHOD 07/05/2024 12:03 AM [facility] Total Bilirubin 1.2 0.0 - 1.4 mg/dL LAB CHEMISTRY METHOD 07/05/2024 12:03 AM [facility] Blood Venous blood specimen / Unknown Venipuncture / Unknown 07/04/2024 10:47 PM EST 07/04/2024 10:52 PM EST Kenn Chavez MD LAB BLOOD ORDERABLES Marisa l Result [facility] [address] [place] [address], * Troponin I high sensitivity (07/04/2024 10:47 PM EST) [facility] High Sensitivity Troponin I 3 <=54 ng/L LAB CHEMISTRY METHOD 07/04/2024 11:28 PM EST [facility] Blood Venous blood specimen / Unknown Venipuncture / Unknown 07/04/2024 10:47 PM EST 07/04/2024 10:52 PM EST Narrative [facility] - 07/04/2024 11:28 PM EST High levels of biotin in samples may falsely decrease hsTroponin values. ??Use caution when interpreting hsTroponin results in patients taking biotin who exhibit renal impairment (eGFR <60) or in patients taking more than 20 mg/day of biotin. Kenn Chavez MD LAB BLOOD ORDERABLES Marisa l Result [facility] [address] [place] [address], * (ABNORMAL) Respiratory virus panel molecular study (07/04/2024 10:42 PM EST) Adenovirus Detection by PCR Not Detected Not Detected LAB MICROBIOLOGY METHOD 07/04/2024 11:53 PM EST [facility] Influenza B PCR Not Detected Not Detected LAB MICROBIOLOGY METHOD 07/04/2024 11:53 PM EST [facility] Coronavirus 229E Not Detected Not Detected LAB MICROBIOLOGY METHOD 07/04/2024 11:53 PM EST [facility] Coronavirus HKU1 Not Detected Not Detected LAB MICROBIOLOGY METHOD 07/04/2024 11:53 PM EST [facility] Coronavirus OC43 Not Detected Not Detected LAB MICROBIOLOGY METHOD 07/04/2024 11:53 PM EST [facility] Coronavirus NL63 Not Detected Not Detected LAB MICROBIOLOGY METHOD 07/04/2024 11:53 PM EST [facility] Parainfluenza Virus 1 Not Detected Not Detected LAB MICROBIOLOGY METHOD 07/04/2024 11:53 PM EST [facility] Parainfluenza Virus 2 Not Detected Not Detected LAB MICROBIOLOGY METHOD 07/04/2024 11:53 PM EST [facility] Parainfluenza Virus 3 Not Detected Not Detected LAB MICROBIOLOGY METHOD 07/04/2024 11:53 PM EST [facility] Parainfluenza Virus 4 Not Detected Not Detected LAB MICROBIOLOGY METHOD 07/04/2024 11:53 PM EST [facility] RSV PCR Not Detected Not Detected LAB MICROBIOLOGY METHOD 07/04/2024 11:53 PM EST [facility] Human Metapneumovirus A and B Not Detected Not Detected LAB MICROBIOLOGY METHOD 07/04/2024 11:53 PM EST [facility] Rhinovirus/Entero virus Not Detected Not Detected LAB MICROBIOLOGY METHOD 07/04/2024 11:53 PM EST [facility] Bordetella pertussis Not Detected Not Detected LAB MICROBIOLOGY METHOD 07/04/2024 11:53 PM EST [facility] Bordetella parapertussis Not Detected Not Detected LAB MICROBIOLOGY METHOD 07/04/2024 11:53 PM [facility] Influenza A H3 Detected(A ) Not Detected LAB MICROBIOLOGY METHOD 07/04/2024 11:53 PM EST [facility] Mycoplasma pneumo by PCR Not Detected Not Detected LAB MICROBIOLOGY METHOD 07/04/2024 11:53 PM EST [facility] Chlamydia pneumoniae Not Detected Not Detected LAB MICROBIOLOGY METHOD 07/04/2024 11:53 PM [facility] SARS COV-2 Not Detected Not Detected LAB MICROBIOLOGY METHOD 07/04/2024 11:53 PM [facility] Swab Both anterior nares / Unknown Non-blood Collection / Unknown 07/04/2024 10:42 PM EST 07/04/2024 10:52 PM EST [facility] - 07/04/2024 11:53 PM EST Testing was performed using the [employer] Respiratory Pathogen PCR Assay. All results must be correlated with the clinical findings. Results should not be used as the sole basis for diagnosis. False Negative results may occur from the presence of sequence variants in the region targeted by the assay or the presence of inhibitors. Results may be affected by concurrent antiviral/antimicrobial therapy or levels of organisms that are below the limit of detection. us Kenn Chavez MD LAB MICROBIOLOGY - GENERA L ORDERABLES Final Result [facility] [address] [place] [address], documented in this encounter Visit Diagnoses Diagnosis Influenza A- Primary Influenza with other respiratory manifestations documented in this encounter Administered Medications Inactive Administered Medications - up to 3 most recent administrations Medication Order MAR Action Action Date Dose Rate Site ketorolac (TORADOL) injection 15 mg 15 mg, intravenous, Once, On Fri07/05/24 at 0037, For 1 dose Given 07/05/2024 1:03 AM EST 15 mg lactated Ringer's bolus 1,000 mL 1,000 mL, intravenous, at 1,000 mL/hr, Administer over 1 Hours, Once, On Fri07/05/24 at 0037, For 1 dose New Bag 07/05/2024 12:53 AM EST 1,000 mL 1000 mL/hr magnesium oxide (MAG-OX) tablet 400 mg 400 mg, oral, Once, On Fri07/05/24 at 0034, For 1 dose Given 07/05/2024 1:03 AM EST 400 mg potassium chloride (KLOR-CON M20) CR tablet 20 mEq 20 mEq, oral, Once, On Fri07/05/24 at 0034, For 1 dose, Tablet may be swallowed whole (do not crush/chew/suck on) OR broken in half and each half swallowed separately OR dissolved (whole tablet) in ~4 ounces of water (allow ~2 minutes to dissolve, stir well and administer immediately). Given 07/05/2024 1:03 AM EST 20 mEq documented in this encounter Active and Recently Administered Medications Times are shown in EST. Scheduled Medication Order 07/03/2024 07/04/2024 07/05/2024 ketorolac (TORADOL) injection 15 mg (COMPLETED) 15 mg, intravenous, Once, On Fri07/05/24 at 0037, For 1 dose 0103 (Given - Provid er: Prema Mullins RN) lactated Ringer's bolus 1,000 mL (COMPLETED) 1,000 mL, intravenous, at 1,000 mL/hr, Administer over 1 Hours, Once, On Fri07/05/24 at 0037, For 1 dose 0053 (New Bag - Prov ider: Prema Mullins RN)0200 (Stopped - Provider: Prema Mullins RN) magnesium oxide (MAG-OX) tablet 400 mg (COMPLETED) 400 mg, oral, Once, On Fri07/05/24 at 0034, For 1 dose 0103 (Given - Provid er: Prema Mullins RN) potassium chloride (KLOR-CON M20) CR tablet 20 mEq (COMPLETED) 20 mEq, oral, Once, On Fri07/05/24 at 0034, For 1 dose, Tablet may be swallowed whole (do not crush/chew/suck on) OR broken in half and each half swallowed separately OR dissolved (whole tablet) in ~4 ounces of water (allow ~2 minutes to dissolve, stir well and administer immediately). 0103 (Given - Provid er: Prema Mullins RN) documented in this encounter Additional Health Concerns Infection Onset Date Last Indicated Resolved Time Influenza 07/04/2024 07/04/2024 documented as of this encounter Care Teams Net Software Architect Relationship Specialty Start Date End Date Pierre Ang MD [address] [place] [address] PCP - General Internal Medicine 09/14/21 documented as of this encounter
--- OUTSIDE RECORDS SUMMARY | 2024-07-27 11:37 | XMS_ITS | Clinical Summary ---
Author Organization [facility] Address [address] [place] [address] Phone Care Team Providers Care Community Service Technician Name Role Phone Pierre Ang MD Primary Care Provider Allergies Active Allergy Reactions Criticality Noted Date Comments Penicillins Other Medium 09/10/2017 Medications PNV no.95/ferrous fum/folic ac ( MULTIVITAMINS ORAL) [...] third trimester Overview (04/22/2024): Ferrous fumarate BID Encounters Date Type Department Care Team Description 07/05/2024 12:17 AM EST - 07/05/2024 2:21 AM EST Emergency [facility] Emergency [address] [place] [address] Influenza A (Primary Dx) Discharge Disposition: Home or Self Care from Last 3 Months Immunizations Name Administration Dates Next Due Influenza Quadravalent, MDCK , 0.5ml, preservative free (Flucelvax) 6mo and older 06/02/2019,02/13/2018 Tdap Tetanus diptheria acell ular pertussis (Boostrix; Adacel) 7yo and older 09/03/2019,02/13/2018 Surgical History Surgery Date Site/Laterality Comments SECTION TUBAL LIGATION Family History Medical History Relation Name Comments [...] Sexual Orientation Not on file Obstetrics History Last Filed Vital Signs Vital Sign Reading [...] Mass Index 21.47 07/04/2024 10:38 PM EST Plan of Treatment Health Maintenance Due Date Last Done Comments IPV Vaccines (2 of 3 - 4-dose series) 05/01/1996 04/03/1996 Cervical Cancer Screening: Pap Smear 09/26/2020 09/26/2017, 09/26/2017, 09/26/2017, Additional history exists Social Influencers of Health Screening 04/03/2022 COVID-19 Vaccine ( season) 2024 09/25/2020, 08/25/2020 Influenza Vaccine (#1) 2024 , 06/02/2019, 02/13/2018, Additional history exists Depression Screening 05/25/2025 05/25/2024 Cholesterol Screening (Lipid Panel) 05/25/2029 05/25/2024 DTaP,Tdap,and Td Vaccines (9 - Td or Tdap) 05/12/2033 05/12/2023, 09/03/2019, 02/13/2018, Additional history exists Hepatitis B Vaccines Completed 04/03/1996, 1994, 1994 MMR Vaccines Completed 01/06/1998, 1995 Varicella Vaccines Completed 06/18/2011, 0 06/17/2001, 01/06/1998 HIV Screening Completed 05/25/2024, 05/17/2019 Hepatitis C Screening Completed 05/25/2024 HPV Vaccines Completed 06/14/2024, 06/05, 08/10/2009 HIB Vaccines Aged Out No longer eligi ble based on patient's age to complete this topic Hepatitis A Vaccines Aged Out No long er eligible based on patient's age to complete this topic Meningococcal ACWY Vaccine Aged Out N o longer eligible based on patient's age to complete this topic Meningococcal B Vacine Aged Out No lo nger eligible based on patient's age to complete [...] ECG 12-LEAD STAT 07/04/2024 11:32 PM EST B-TYPE NATRIURETIC PEPTIDE STAT 07/04/2024 11:30 PM EST TROPONIN I HIGH SENSITIVITY STAT 07/04/2024 11:30 PM EST XR CHEST 2 VIEWS STAT 07/04/2024 11:0 2 PM EST ECG 12-LEAD STAT 07/04/2024 10:50 PM EST CBC WITH AUTO DIFFERENTIAL STAT 07/04/2024 10:47 PM EST MAGNESIUM STAT 07/04/2024 10:47 PM EST LIPASE STAT 07/04/2024 10:47 PM EST COMPREHENSIVE METABOLIC PANEL STAT 07/04/2024 10:47 PM EST CBC AND DIFFERENTIAL STAT 07/04/2024 10:47 PM EST TROPONIN I HIGH SENSITIVITY STAT 07/04/2024 10:47 PM EST RESPIRATORY VIRUS PANEL MOLECULAR STUDY STAT 07/04/2024 10:42 PM EST HIV SCREENING Routine 05/17/2019 PAP SMEAR Routine 09/26/2017 from Last 3 Months or Most Recently Relevant to Health Maintenance Results * ECG-Annotated (07/05/2024) us Provider Onbase ECG ORDERABLES Final Result * ECG 12 lead (07/04/2024 11:32 PM EST) Only the most recent of2 resultswithin the time period is included. Ventricular Rate ECG 92 BPM GEMUSE Atrial Rate 92 BPM GEMUSE P-R Interval 132 ms GEMUSE QRS Duration 76 ms GEMUSE Q-T Interval 332 ms GEMUSE QTc 410 ms GEMUSE P Wave Scre[place] 58 degrees GEMUSE R [place] 64 degrees GEMUSE T [place] -31 degrees GEMUSE ECG Interpretation Normal sinus rhythm ST and T wave abnormality, consider inferior ischemia ST and T wave abnormality, consider anterior ischemia Abnormal ECG When compared with ECG of 04-JUL-2024 22:50, (unconfirmed) No significant change was found Confirmed by Florecita MERINO JOHN ([id number]) on 07/05/2024 7:59:06 PM GEMUSE 07/04/2024 11:3 2 PM EST 07/05/2024 7:59 PM EST Kenn Chavez MD ECG ORDERABLES Final Res ult GEMUSE * Troponin I high sensitivity (07/04/2024 11:30 PM EST) Only the most recent of2 resultswithin the time period is included. Pathologist [facility] High Sensitivity Troponin I <3 <=54 ng/L LAB CHEMISTRY METHOD 07/05/2024 12:06 AM EST [facility] Blood Venous blood specimen / Unknown Venipuncture / Unknown 07/04/2024 11:30 PM EST 07/04/2024 11:37 PM EST Narrative [facility] - 07/05/2024 12:06 AM EST High levels of biotin in samples may falsely decrease hsTroponin values. ??Use caution when interpreting hsTroponin results in patients taking biotin who exhibit renal impairment (eGFR <60) or in patients taking more than 20 mg/day of biotin. Kenn Chavez MD LAB BLOOD ORDERABLES Marisa l Result Performing Organization Address [facility] Co de Phone Number [facility] [address] [place] [address], [place] [phone] * B-type natriuretic peptide (07/04/2024 11:30 PM EST) BNP 7 <=100 pcg/mL LAB CHEMISTRY METHOD 07/05/2024 12:14 AM EST [facility] Blood Venous blood specimen / Unknown Venipuncture / Unknown 07/04/2024 11:30 PM EST 07/04/2024 11:37 PM EST Kenn Chavez MD LAB BLOOD ORDERABLES Marisa l Result Performing Organization Address [facility] Co de Phone Number [facility] [address] [place] [address], [place] [phone] * XR Chest 2 Views (07/04/2024 11:02 PM EST) Anatomical Region Laterality Modality Body Radiographic Diane ging 07/05/2024 8:13 AM EST Impressions 07/05/2024 8:14 AM EST Normal chest radiographs. -------- FINAL REPORT -------- Dictated By: Fernando Trevino Dictated Date: 07/05/2024 08:13 ET Assigned Physician: Fernando Trevino Reviewed and Electronically Signed By: Fernando Trevino Signed Date: 07/05/2024 08:14 ET Workstation ID: [id number] Transcribed By: Self Edit Transcribed Date: 07/05/2024 [...] Signed Date: 07/05/2024 08:14 ET Workstation ID: [id number] Transcribed By: Self Edit Transcribed Date: 07/05/2024 08:13 ET us Kenn Chavez MD IMG XR PROCEDURES Final R esult * (ABNORMAL) CBC auto differential (07/04/2024 10:47 PM EST) WBC 12.4(H) 4.8 - 10.8 K/mcL LAB HEMETOLOGY METHOD 07/04/2024 10:59 PM [facility] RBC 4.60 3.80 - 4.80 M/mcL LAB HEMETOLOGY METHOD 07/04/2024 10:59 PM [facility] Hemoglobin 12.6 11.5 - 16.0 g/dL LAB HEMETOLOGY METHOD 07/04/2024 10:59 PM [facility] Hematocrit 39.3 35.0 - 47.0 % LAB HEMETOLOGY METHOD 07/04/2024 10:59 PM [facility] MCV 85.1 79.0 - 98.0 FL LAB HEMETOLOGY METHOD 07/04/2024 10:59 PM [facility] MCH 27.3 27.0 - 32.0 pcg LAB HEMETOLOGY METHOD 07/04/2024 10:59 PM [facility] MCHC 32.1 32.0 - 37.0 g/dL LAB HEMETOLOGY METHOD 07/04/2024 10:59 PM [facility] RDW 13.2 11.0 - 15.0 % LAB HEMETOLOGY METHOD 07/04/2024 10:59 PM [facility] Platelets 298 130 - 400 K/mcL LAB HEMETOLOGY METHOD 07/04/2024 10:59 PM [facility] MPV 9.8 7.0 - 11.0 FL LAB HEMETOLOGY METHOD 07/04/2024 10:59 PM [facility] NRBC 0.0 <1.0 % LAB HEMETOLOGY METHOD 07/04/2024 10:59 PM [facility] NRBC Absolute 0.00 <0.10 K/mcL LAB HEMETOLOGY METHOD 07/04/2024 10:59 PM [facility] Neutrophils Relative 82.3 % LAB HEMETOLOGY METHOD 07/04/2024 10:59 PM [facility] Lymphocytes Relative 8.6 % LAB HEMETOLOGY METHOD 07/04/2024 10:59 PM [facility] Monocytes Relative 8.1 % LAB HEMETOLOGY METHOD 07/04/2024 10:59 PM [facility] Eosinophils Relative 0.5 % LAB HEMETOLOGY METHOD 07/04/2024 10:59 PM [facility] Basophils Relative 0.2 % LAB HEMETOLOGY METHOD 07/04/2024 10:59 PM [facility] Immature Granulocytes Relative 0.3 % LAB HEMETOLOGY METHOD 07/04/2024 10:59 PM EST [facility] Neutrophils Absolute 10.23(H) 1.50 - 7.00 K/mcL LAB HEMETOLOGY METHOD 07/04/2024 10:59 PM EST [facility] Lymphocytes Absolute 1.07 1.00 - 5.00 K/mcL LAB HEMETOLOGY METHOD 07/04/2024 10:59 PM EST [facility] Monocytes Absolute 1.01(H) 0.20 - 1.00 K/mcL LAB HEMETOLOGY METHOD 07/04/2024 10:59 PM EST [facility] Eosinophils Absolute 0.06 0.00 - 0.50 K/mcL LAB HEMETOLOGY METHOD 07/04/2024 10:59 PM EST [facility] Basophils Absolute 0.02 0.00 - 0.20 K/mcL LAB HEMETOLOGY METHOD 07/04/2024 10:59 PM [facility] Immature Granulocytes Absolute 0.04(H) 0.00 - 0.03 K/mcL LAB HEMETOLOGY METHOD 07/04/2024 10:59 PM EST [facility] Blood Venous blood specimen / Unknown Venipuncture / Unknown 07/04/2024 10:47 PM EST 07/04/2024 10:52 PM EST us Kenn Chavez MD LAB BLOOD ORDERABLES Marisa l Result [facility] [address] [place] [address], * (ABNORMAL) Magnesium (07/04/2024 10:47 PM EST) Magnesium 1.8(L) 1.9 - 2.6 mg/dL LAB CHEMISTRY METHOD 07/04/2024 11:53 PM EST [facility] Blood Venous blood specimen / Unknown Venipuncture / Unknown 07/04/2024 10:47 PM EST 07/04/2024 10:52 PM EST Kenn Chavez MD LAB BLOOD ORDERABLES Marisa l Result Performing Organization Address City/[facility]/ZIP Co de Phone Number [facility] [address] [place] [address], [place] [phone] * Lipase (07/04/2024 10:47 PM EST) [facility] Lipase 24 13 - 75 unit/L LAB CHEMISTRY METHOD 07/04/2024 11:53 PM [facility] Blood Venous blood specimen / Unknown Venipuncture / Unknown 07/04/2024 10:47 PM EST 07/04/2024 10:52 PM EST Kenn Chavez MD LAB BLOOD ORDERABLES Marisa l Result Performing Organization Address [facility]/ZIP Co de Phone Number [facility] [address] [place] [address], [place] [phone] * (ABNORMAL) Comprehensive metabolic panel (07/04/2024 10:47 PM EST) [facility] Sodium 132(L) 133 - 145 mmol/L LAB CHEMISTRY METHOD 07/05/2024 12:03 AM [facility] Potassium 3.2(L) 3.5 - 5.5 mmol/L LAB CHEMISTRY METHOD 07/05/2024 12:03 AM [facility] Chloride 99 96 - 110 mmol/L LAB CHEMISTRY METHOD 07/05/2024 12:03 AM [facility] CO2 21 21 - 32 mmol/L LAB CHEMISTRY METHOD 07/05/2024 12:03 AM [facility] Anion Gap 12(H) 3 - 11 LAB CHEMISTRY METHOD 07/05/2024 12:03 AM [facility] Glucose 143(H) 70 - 100 mg/dL LAB CHEMISTRY METHOD 07/05/2024 12:03 AM [facility] BUN 9 5 - 25 mg/dL LAB CHEMISTRY METHOD 07/05/2024 12:03 AM [facility] Creatinine 0.60 0.50 - 1.10 mg/dL LAB CHEMISTRY METHOD 07/05/2024 12:03 AM [facility] eGFR 124 >=60 mL/min/1. 73m2 LAB CHEMISTRY METHOD 07/05/2024 12:03 AM [facility] Comment:Calculation based on the??Chronic Kidney Disease Epidemiology Collaboration (CKD-EPI) equation refit??without adjustment for race. BUN/Creatinine Ratio 15.0 LAB CHEMISTRY METHOD 07/05/2024 12:03 AM [facility] Calcium 9.3 8.5 - 10.5 mg/dL LAB CHEMISTRY METHOD 07/05/2024 12:03 AM [facility] AST (SGOT) 26 10 - 42 unit/L LAB CHEMISTRY METHOD 07/05/2024 12:03 AM [facility] ALT (SGPT) 38 10 - 60 unit/L LAB CHEMISTRY METHOD 07/05/2024 12:03 AM [facility] Alkaline Phosphatase 74 42 - 121 unit/L LAB CHEMISTRY METHOD 07/05/2024 12:03 AM [facility] Total Protein 8.4(H) 6.0 - 8.0 g/dL LAB CHEMISTRY METHOD 07/05/2024 12:03 AM [facility] Albumin 4.3 3.2 - 5.0 g/dL LAB CHEMISTRY METHOD 07/05/2024 12:03 AM [facility] Total Bilirubin 1.2 0.0 - 1.4 mg/dL LAB CHEMISTRY METHOD 07/05/2024 12:03 AM [facility] Blood Venous blood specimen / Unknown Venipuncture / Unknown 07/04/2024 10:47 PM EST 07/04/2024 10:52 PM EST us Kenn Chavez MD LAB BLOOD ORDERABLES Marisa l Result [facility] [address] [place] [address], [place] [phone] * (ABNORMAL) Respiratory virus panel molecular study (07/04/2024 10:42 PM EST) Adenovirus Detection by PCR Not Detected Not Detected LAB MICROBIOLOGY METHOD 07/04/2024 11:53 PM EST [facility] Influenza B PCR Not Detected Not Detected LAB MICROBIOLOGY METHOD 07/04/2024 11:53 PM EST [facility] Coronavirus 229E Not Detected Not Detected LAB MICROBIOLOGY METHOD 07/04/2024 11:53 PM EST [facility] Coronavirus HKU1 Not Detected Not Detected LAB MICROBIOLOGY METHOD 07/04/2024 11:53 PM EST [facility] Coronavirus OC43 Not Detected Not Detected LAB MICROBIOLOGY METHOD 07/04/2024 11:53 PM EST [facility] Coronavirus NL63 Not Detected Not Detected LAB MICROBIOLOGY METHOD 07/04/2024 11:53 PM EST [facility] Parainfluenza Virus 1 Not Detected Not Detected LAB MICROBIOLOGY METHOD 07/04/2024 11:53 PM EST [facility] Parainfluenza Virus 2 Not Detected Not Detected LAB MICROBIOLOGY METHOD 07/04/2024 11:53 PM EST [facility] Parainfluenza Virus 3 Not Detected Not Detected LAB MICROBIOLOGY METHOD 07/04/2024 11:53 PM EST [facility] Parainfluenza Virus 4 Not Detected Not Detected LAB MICROBIOLOGY METHOD 07/04/2024 11:53 PM EST [facility] RSV PCR Not Detected Not Detected LAB MICROBIOLOGY METHOD 07/04/2024 11:53 PM EST [facility] Human Metapneumovirus A and B Not Detected Not Detected LAB MICROBIOLOGY METHOD 07/04/2024 11:53 PM EST [facility] Rhinovirus/Entero virus Not Detected Not Detected LAB MICROBIOLOGY METHOD 07/04/2024 11:53 PM EST [facility] Bordetella pertussis Not Detected Not Detected LAB MICROBIOLOGY METHOD 07/04/2024 11:53 PM [facility] Bordetella parapertussis Not Detected Not Detected LAB MICROBIOLOGY METHOD 07/04/2024 11:53 PM EST [facility] Influenza A H3 Detected(A ) Not Detected LAB MICROBIOLOGY METHOD 07/04/2024 11:53 PM EST [facility] Mycoplasma pneumo by PCR Not Detected Not Detected LAB MICROBIOLOGY METHOD 07/04/2024 11:53 PM EST [facility] Chlamydia pneumoniae Not Detected Not Detected LAB MICROBIOLOGY METHOD 07/04/2024 11:53 PM EST [facility] SARS COV-2 Not Detected Not Detected LAB MICROBIOLOGY METHOD 07/04/2024 11:53 PM [facility] Swab Both anterior nares / Unknown Non-blood Collection / Unknown 07/04/2024 10:42 PM EST 07/04/2024 10:52 PM EST [facility] - 07/04/2024 11:53 PM EST Testing was performed using the [employer] [place] Respiratory Pathogen PCR Assay. All results must [...] that are below the limit of detection. Kenn Chavez MD LAB MICROBIOLOGY - GENERA L ORDERABLES Final Result [facility] [address] [place] [address], [place] [phone] * HIV Screening (05/17/2019) Pathologist [facility] HIV Screening abstracted us Historical Provider HEALTH MAINTENANCE Final Result * Pap smear (09/26/2017) 09/26/2017 Narrative HISTORICAL TESTING LAB RESULTING AGENCY - 10/01/2017 2:07 PM EDT [id number] THINPREP PAP, IMAGED: NEGATIVE FOR SQUAMOUS INTRAEPITHELIAL LESION AND MALIGNANCY ??. CARMITA IS PRESENT. HARRIS JENNIFER PAUL, ROBERT(ASCP) (CASE ELECTRONICALLY SIGNED 10 01 2017) ADEQUACY: SATISFACTORY. ENDOCERVICAL/TRANSFORMATION ZONE COMPONENT PRESENT. SOURCE: THINPREP PAP HPV IF ASCUS, CERVICAL, IMAGED: CLINICAL INFORMATION: HPV IF DIAGNOSIS OF ASCUS. Z12.4, Z34.01, us Adilene Boston CNM LAB CYTOLOGY ORDERABLES Final Result HISTORICAL TESTING LAB RESULTING AGENCY from Last 3 Months or Most Recently Relevant to Health Maintenance Additional Health Concerns Infection Onset Date Last Indicated Influenza 07/04/2024 07/04/2024 Insurance MEDICA[place] - [place] Care Teams Community Service Technician Relationship Specialty Start Date End Date Pierre Ang MD [address] [place] [address] PCP - General Internal Medicine 09/14/21
--- OUTSIDE RECORDS SUMMARY | 2024-07-27 11:38 | XMS_ITS | Clinical Summary ---
Author Organization [employer] Address [address] [facility] [address] [place] [address] Care Team Providers Care [employer] Name Role Phone Amada Gunn MD Primary Care Provide r Allergies Active Allergy Reactions Criticality Noted Date Comments Penicillins Hives 05/25/2024 Medications cholecalciferol (Vitamin D-3) 25 MCG (1000 UT) tabletIndication s:Vitamin D deficiency Take 1 tablet (25 mcg) by mouth Once per day. 60 tablet 2 07/12/2024 Active Active Problems Problem Noted Date Diagnosed Date Chronic left shoulder pain 07/12/2024 Assessment & Plan (07/12/2024 11:25 AM EDT): Acetaminophen as needed I will order an x-ray and nerve conduction test patient will be contacted with results Left arm pain 07/12/2024 Numbness and tingling 07/12/2024 Vitamin D deficiency 07/12/2024 Migraine with aura and witho ut status migrainosus, not intractable 05/25/2024 Assessment & Plan (07/12/2024 11:25 AM EDT): I advise to avoid migraine triggers like red wine, chocolate, cheese, strong perfumes Patient has not had any headaches since last visit, advised to take Excedrin Migraine if she needs to Assessment & Plan (05/25/2024 4:15 PM EST): I advise to avoid migraine triggers like red wine, chocolate, cheese, strong perfumes Iron (Fe) deficiency anemia 05/25/2024 Other chest pain 05/25/2024 Palpitations 05/25/2024 Encounters Date Type Department Care Team Description 07/22/2024 Telephone [facility] [place] [address] Amada Gunn MD Care Management (C3 graduation) 07/16/2024 Population [facility] Risk Score [facility] (C3) Department [address] [place] [phone] Provider, Population Health Generic 07/12/2024 11:00 AM EDT Telemedicine [facility] [address] Amada Gunn MD Chronic left shoulder pain (Primary Dx); Left arm pain; Numbness and tingling; Vitamin D deficiency; Migraine with aura and without status migrainosus, not intractable 07/12/2024 Travel 07/09/2024 Telephone [facility] [place] [address] Amada Gunn MD Chart Prep 07/05/2024 Travel 06/28/2024 Telephone [facility] [place] [address] Mag[facility] Care Management (C3 follow up call) 05/31/2024 Telephone [facility] [place] [address] [facility] Care Management (C3 follow up call) 05/25/2024 10:15 AM EST Office Visit [facility] [address] Amada Gunn MD Migraine with aura and without status migrainosus, not intractable (Primary Dx); Iron deficiency anemia, unspecified iron deficiency anemia type; Other chest pain; Palpitations 05/25/2024 Travel 05/21/2024 Telephone [facility] [address] [facility] Care Management (C3 appointment reminder) 05/13/2024 Patient Outreach [facility] [place] [address] Amada Gunn MD Pre-visit Planning (SDCT screening completed on 08/07/2023) 04/29/2024 Telephone [facility] [address] [place], [place] [phone] Maggy Beck Care Management ([facility] follow up call) from Last 3 Months [...] is your housing situation today? I have richardmartha carey 08/14/[address] you [...] 05/25/2024 10:45 AM EST Plan of Treatment Health Maintenance Due Date Last Done Comments IPV Vaccines (2 of 3 - 4-dose series) 05/01/1996 04/03/1996 Alcohol/Substance Use Screening 2006 Family Planning (PISQ) 2009 Pap Smear 2015 Cervical Cancer Screening 01/02/2024 HPV/Cotest 01/02/2024 COVID-19 Vaccine ( season) 2024 09/25/2020, 08/25/2020 Influenza Vaccine (#1) 2024 , 06/02/2019, 06/02/2019, Additional history exists Depression Screening 05/25/2025 05/25/2024, 05/25/19 25 SDOH Screening 05/25/2025 05/25/2024 Tobacco Screening 05/25/2025 05/25/2024 DTaP/Tdap/Td Vaccines (9 - Td or Tdap) 05/12/2033 05/12/2023, 09/03/2019, 02/13/2018, Additional history exists Zoster Vaccines (1 of 2) 01/02/2044 RSV Patients and Patients Aged 60 years or older (1 - 1-dose 75+ series) 2069 Hepatitis B Vaccines Completed 04/03/1996, 1994, 1994 HIV Screening Completed 05/25/2024 Hepatitis C Screening Completed 05/25/2024 HPV Vaccines Completed 06/14/2024, 06/05, 08/10/2009, Additional history exists HIB Vaccines Aged Out No longer eligi ble based on patient's age to complete this topic Hepatitis A Vaccines Aged Out No long er eligible based on patient's age to complete this topic Meningococcal Vaccine Aged Out No issa erick eligible based on patient's age to complete this topic Pneumococcal Vaccine: Pediatrics (0 to 5 Years) and At-Risk Patients (6 to 49) Years) Aged Out No longer eligible based on patient's age to complete this topic RSV under 20 months Aged Out No longe r eligible based on patient's age to complete this topic Rotavirus Vaccines Aged Out No longer eligible based on patient's age to complete this topic Procedures Procedure Name Priority Date/Time Associated Diagnosis Comments TSH W/REFLEX TO FT4 Routine 05/25/2024 1 1:37 AM EST Palpitations VITAMIN D,25-OH,TOTAL,IA Routine 05/25/2024 11:37 AM EST Palpitations LIPID PANEL, STANDARD Routine 05/25/2024 11:37 AM EST Palpitations HEPATITIS C AB W/REFL TO HCV RNA, QN, PCR Routine 05/25/2024 11:37 AM EST Palpitations HIV 1/2 ANTIGEN/ANTIBODY, FOURTH GENERATION W/RFL Routine 05/25/2024 11:37 AM EST Palpitations HEMOGLOBIN A1C Routine 05/25/2024 11:37 AM EST Palpitations COMPREHENSIVE METABOLIC PANEL Routine 05/25/2024 11:37 AM EST Palpitations CBC WITH AUTO DIFFERENTIAL Routine 05/25/2024 11:37 AM EST Iron deficiency anemia, unspecified iron deficiency anemia type from Last 3 Months Results * (ABNORMAL) Vitamin D, 25-Hydroxy, Total, Immunoassay (05/25/2024 11:37 AM EST) Vitamin D 25-OH Total 18.9(L) >30 ng/mL [facility] Comment:Health Based Referen ce Values*< 20 ng/mL [id number] ng/mL Insufficient> 30 ng/mL Sufficient*Michelle DENT. N Engl J Med. 2007;357:266-280Care must be taken in interpreting Vitamin D results fromdifferent laboratories and methodologies. Published datademonstrated that results from patients undergoinghemodialysis may show a negative bias when tested withvarious automated 25-OH vitamin D assays when compared toLC-MS/MS.When testing samples from patients whose predominant form ofVitamin D is Vitamin D2, such as patients receiving VitaminD2 supplementation, results that are subtherapeutic shouldbe confirmed with another method such as LC-MS/MS. Blood Venous blood specimen / Unknown 05/25/2024 11:37 AM EST 05/25/2024 1:14 PM EST us Amada Kidd MD LAB BLOOD ORDERABLES Final Result Performing Organization Address [facility] Co de Phone Number [facility] [address] [place] [phone] * TSH with Reflex to Free T4 (05/25/2024 11:37 AM EST) TSH reflex Free T4 1.25 0.32 - 4.0 uIU/mL [facility] Blood Venous blood specimen / Unknown 05/25/2024 11:37 AM EST 05/25/2024 1:14 PM EST us Amada Kidd MD LAB BLOOD ORDERABLES Final Result Performing Organization Address [facility] Co de Phone Number [facility] [address] [place] [phone] * (ABNORMAL) CBC auto differential (05/25/2024 11:37 AM EST) White Blood Count 7.8 4.8 - 10.8 X10*3/uL [facility] Red Blood Count 4.38 4.20 - 5.50 X10*6/uL [facility] Hemoglobin 12.0 12.0 - 16.0 g/dl [facility] Hematocrit 36.8(L) 37.0 - 47.0 % [facility] Mean Corpuscular Volume 84.0 80.0 - 98.0 fL [facility] Mean Corpuscular Hemoglobin 27.4 27.0 - 33.0 pg [facility] Mean Corpuscular HGB Conc 32.6 31.0 - 35.0 g/dl [facility] Red Cell Distribution Width 12.9 11.0 - 16.0 % [facility] Platelet Count 279 160 - 400 X10*3/uL [facility] Mean Platelet Volume 10.6 9.4 - 12.3 fL [facility] Neutrophils Percent Auto 55.7 45 - 73 % [facility] Imm Gran Pct Auto 0.1 0.0 - 0.4 % [facility] Lymphocytes Percent Auto 33.7 20 - 40 % [facility] Monocytes Percent Auto 6.0 2 - 11 % [facility] Eosinophils Percent Auto 4.0 0 - 4 % [facility] Basophils Percent Auto 0.5 0 - 2 % [facility] NRBC Pct Auto 0.0 0.0 - 0.2 /100WBC [facility] Neutrophils Absolute Auto 4.3 2.0 - 8.3 x10*3/uL [facility] Imm Gran Abs Auto 0.01 0.00 - 0.03 X10*3/uL [facility] Lymphocytes Absolute Auto 2.6 1.2 - 4.9 X10*3/uL [facility] Monocytes Absolute Auto 0.5 0.1 - 1.2 X10*3/uL [facility] Eosinophils Absolute Auto 0.3 0.0 - 0.4 X10*3/uL [facility] Basophils Absolute Auto 0.0 0.0 - 0.2 X10*3/uL [facility] NRBC Abs Auto 0.000 0.0 - 0.012 X10*3/uL [facility] Blood Venous blood specimen / Unknown 05/25/2024 11:37 AM EST 05/25/2024 1:14 PM EST Amada Kidd MD LAB BLOOD ORDERABLES Final Result Performing Organization Address [facility]/ZIP Co de Phone Number [facility] [address] [place] [phone] * Hepatitis C Antibody with Reflex to HCV, RNA, Quantitative, Real-Time PCR (05/25/2024 11:37 AM EST) Hepatitis C Antibody Nonreactive Nonreactive [facility] Comment:Antibodies to HCV no t detected; does not exclude early acuteHCV infection. Blood Venous blood specimen / Unknown 05/25/2024 11:37 AM EST 05/25/2024 1:14 PM EST Result [facility] Amada Kidd MD LAB BLOOD ORDERABLES Final Result Performing Organization Address [facility] Co de Phone Number [facility] [address] [place] [phone] * HIV-1/2 Antigen and Antibodies, Fourth Generation, with Reflexes (05/25/2024 11:37 AM EST) HIV AB/AG Nonreactive Nonreactive [facility] Comment:HIV-1 p24 Ag and/or HIV-1/HIV-2 Ab not detected.A test result that is nonreactive does not exclude thepossibility of exposure to or infection with HIV-1 and/orHIV-2. Nonreactive results in this assay for individualswith prior exposure to HIV-1 and/or HIV-2 may be due toantigen and antibody levels that are below the limit ofdetection of this assay.The [employer] Competence HIV Ag/Ab Combo assay result andsupplemental assay results should be interpreted inconjunction with the patient's clinical presentation,history and other laboratory results. If the results areinconsistent with clinical evidence, additional testing issuggested to confirm the result. Blood Venous blood specimen / Unknown 05/25/2024 11:37 AM EST 05/25/2024 1:14 PM EST Amada Kidd MD LAB BLOOD ORDERABLES Final Result Performing Organization Address [facility] Co de Phone Number [facility] [address] [place] [phone] * Hemoglobin A1c (05/25/2024 11:37 AM EST) Hemoglobin A1c 4.8 <6.0 % [facility] Comment:Hemoglobin A1C Refer ence Range Adults: 4.8 - 6.0 % Non diabetic: < 6.0 % Goal: < 7.0 %Additional Action Suggested: > 8.0 %Note: Hemoglobin A1c results are invalid for patients with abnormal amounts of HbF. Blood transfusions may impact the HbA1c concentration in the patient sample. Estimated Average Glucose 91 mg/dL [facility] Comment:eAG = Estimated ave rage glucose which is %A1C expressed asaverage glucose, using the formula of the [id number] Glucose study (ADAG), Diabetes Care, Vol.31,#8,Dec. 2007 Blood Venous blood specimen / Unknown 05/25/2024 11:37 AM EST 05/25/2024 1:14 PM EST Amada Kidd MD LAB BLOOD ORDERABLES Final Result Performing Organization Address [facility] Co de Phone Number [facility] [address] [place] [phone] * Lipid Panel, Standard (05/25/2024 11:37 AM EST) Triglycerides 38 <150 mg/dL [facility] Comment:Desirable Triglyceri de: less than 150 mg/dLBorderline High Triglyceride 150-199 mg/dLHigh Triglyceride: 200-499 mg/dLVery High Triglyceride: greater than or equal to 5OO mg/dL Cholesterol 116 <200 mg/dL [facility] Comment:Desirable Cholestero l: less than 200 mg/dLBorderline High Cholesterol: 200-239 mg/dLHigh Cholesterol: greater than 239 mg/dL LDL Cholesterol Calculated 63 <100 mg/dL [facility] Comment:Desirable LDL: less than 100 mg/dLNear Optimal/Above Optimal LDL: 110- 129 mg/dLBorderline High LDL: 130-159 mg/dLHigh LDL: 160-189 mg/dLVery High LDL: greater than or equal to 190 mg/dL HDL Cholesterol 46 >40 mg/dL [facility] Comment:Desirable HDL: great er than 40 mg/dL Note: This HDL assay may give artificially low results in patients with liver disease. Blood Venous blood specimen / Unknown 05/25/2024 11:37 AM EST 05/25/2024 1:14 PM EST us Amada Kidd MD LAB BLOOD ORDERABLES Final Result [facility] [address] [place] [phone] * (ABNORMAL) Comprehensive Metabolic Panel (05/25/2024 11:37 AM EST) Sodium 137 135 - 145 mmol/L [facility] Potassium 3.4 3.3 - 5.1 mmol/L [facility] Chloride 108 96 - 108 mmol/L [facility] Carbon Dioxide 23 22 - 29 mmol/L [facility] Anion Gap 9(L) 12 - 20 [facility] Urea Nitrogen (BUN) 13 9 - 16 mg/dL [facility] Creatinine, Serum 0.64 0.5 - 1.4 mg/dL [facility] Estimated Glomerular Filt Rate >60 [facility] Comment:Chronic Kidney Disea se: Estimated GFR < 60 mL/min/1.99z6Vynrmi Kidney Disease: Estimated GFR < 15 mL/min/1.73m2 Glucose 88 60 - 115 mg/dL [facility] Calcium 8.6 8.4 - 10.2 mg/dL [facility] Bilirubin, Total 1.6(H) 0.0 - 1.0 mg/dL [facility] Aspartate Amino Transferase 20 5 - 31 U/L [facility] Alanine Aminotransferase 11 0 - 31 U/L [facility] Total Protein 8.4(H) 6.5 - 8.0 g/dL [facility] Albumin Level 4.5 3.5 - 5.0 g/dL [facility] Alkaline Phosphatase 75 39 - 117 U/L [facility] Blood Venous blood specimen / Unknown 05/25/2024 11:37 AM EST 05/25/2024 1:14 PM EST Amada Kidd MD LAB BLOOD ORDERABLES Final Result [facility] [address] [place] [phone] from Last 3 Months Insurance STANDARD Care Teams [employer] Relationship Specialty Start Date End Date Amada Gunn MD [address] [place] [phone] PCP - General Internal Medicine 07/09/24
== END 2024-07-27 09:58 | disposition home or self-care (01) ==
LOC: HO.NEURO 09:57
PROVIDERS: Visit Provider Internal Medicine
DX: M25.512 Pain in left shoulder (principal); G89.29 Other chronic pain
CPT/HCPCS: 73030; 95886; 95910

== ENCOUNTER → 2024-07-27 10:28 | Outpatient (BNV) | payer MEDICAID, SELFPAY | PROVIDERS: Visit Provider Radiology Diagnostic Radiology | DX: M25.512 Pain in left shoulder (principal); R20.2 Paresthesia of skin | CPT/HCPCS: 73030 ==

== ENCOUNTER 2024-09-20 09:30 | Outpatient (AMB) | payer MEDICAID, SELFPAY ==
--- OUTSIDE RECORDS SUMMARY | 2024-09-20 09:50 | XMS_ITS | Clinical Summary ---
Author Organization [employer] Address [address] [place] [address] Care Team Providers Care Exhibition Organiser Name Role Phone Amada Gunn MD Primary Care Provide r Allergies Active Allergy Reactions Criticality Noted Date Comments Penicillins Hives 05/25/2024 Medications cholecalciferol (Vitamin D-3) 25 MCG (1000 UT) tabletIndicatio ns:Vitamin D deficiency Take 1 tablet (25 mcg) by mouth Once per day. 60 tablet 2 07/12/2024 Active gabapentin (Neurontin) 100 MG capsuleIndicati ons:Ulnar neuropathy of left upper extremity Take 3 capsules (300 mg) by mouth every 8 (eight) hours. 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) 07/30/2024 Telephone [facility] [address] [place] [address] Amada Gunn MD Results; Appointment Request 07/22/2024 Telephone [facility] [place] [place] [address] Amada Gunn MD Care Management ([facility] graduation) 07/16/2024 Population Health Risk Score [facility] (C3) Department [address] [place] [address] [phone] Provider, Population Health Generic 07/12/2024 11:00 AM EDT Telemedicine [facility] [place] [address] Amada Gunn MD Chronic left shoulder pain (Primary Dx); Left arm pain; Numbness and tingling; Vitamin D deficiency; Migraine with aura and without status migrainosus, not intractable 07/12/2024 Travel 07/09/2024 Telephone [facility] [place] [place] [address] Amada Gunn MD Chart Prep 07/05/2024 Travel 06/28/2024 Telephone [facility] [address] [place], [place] [phone] Maggy Beck Care Management ([facility] follow up call) from Last 3 Months [...] 09/25/2020, 08/25/2020 Influenza Vaccine (#1) 2024 , 03/19/2023, 06/02/2019, Additional history exists Depression Screening 05/25/2025 05/25/2024, 05/25/19 25 SDOH Screening 05/25/2025 05/25/2024 Tobacco Screening 05/25/2025 05/25/2024 Disability Screening 07/05/2025 07/05/2024, 07/05/2024, 07/05/2024 DTaP/Tdap/Td Vaccines (9 - Td or Tdap) 05/12/2033 05/12/2023, 09/03/2019, 02/13/2018, Additional history exists Zoster Vaccines (1 of 2) 01/02/2044 RSV Patients and Patients Aged 60 years or older (1 - 1-dose 75+ series) 2069 Hepatitis B Vaccines Completed 04/03/1996, 1994, 1994 HIV Screening Completed 05/25/2024 Hepatitis C Screening Completed 05/25/2024 HPV Vaccines Completed 06/14/2024, 06/05, 06/18/2011, Additional history exists HIB Vaccines Aged Out No longer eligi ble based on patient's age to complete this topic Hepatitis A Vaccines Aged Out No long er eligible based on patient's age to complete this topic Meningococcal B Vaccine Aged Out No l onger eligible based on patient's age to complete [...] Procedure Name Priority Date/Time Associated Diagnosis Comments XR SHOULDER 2+ VIEWS LEFT Routine 07/27/2024 10:30 AM EDT Chronic left shoulder pain HEPATITIS C AB W/REFL TO HCV RNA, QN, PCR Routine 05/25/2024 11:37 AM EST Palpitations HIV 1/2 ANTIGEN/ANTIBODY, FOURTH GENERATION W/RFL Routine 05/25/2024 11:37 AM EST Palpitations from Last 3 Months or Most Recently Relevant to Health Maintenance Results * XR Shoulder 2+ Views Left (07/27/2024 10:30 AM EDT) Anatomical Region Laterality Modality Upper Extremities, Shoulder Left Radi ographic Imaging 07/27/2024 10:3 0 AM EDT Narrative 07/28/2024 12:42 PM EDT ? [facility] ?[address] ?[place] [address] ?XRay Report ? Signed ? Patient: Amada Yanez ?MR#: [id number] ?? 45 ? : 1995 ?Acct:[id number] ? Age/Sex: 29 / F ?ADM Date: 07/27/24 ? Loc: HO.NEURO ? Attending Dr: Amada Kidd MD ? Ordering Physician: Amada Gunn MD ?? Date of Service: 07/27/24 ?? Procedure(s): XR shoulder LT min 2V ?? Accession Number(s): [id number] ? cc: Amada Gunn MD ? EXAMINATION: ??XR SHOULDER 2 OR MORE VIEWS LEFT ? HISTORY: chronic pain numbness and tingling ? COMPARISON: There are no prior studies available for comparison. ? FINDINGS: ? Four views of the left shoulder are submitted. ??Osseous mineralization ?? is normal. ??There is no fracture or dislocation. There is possible ?? slight elevation of the distal clavicle with respect to the acromion. ? The glenohumeral and acromioclavicular joint spaces are preserved. ??The ?? soft tissues are unremarkable. ? XR/XR shoulder LT min 2V ?? IMPRESSION: ? Possible slight elevation of the distal clavicle which could indicate ?? AC separation. Clinical correlation is recommended. Otherwise ?? unremarkable examination of the left shoulder. ? Electronically signed by: ??Syd Villa MD ??07/28/2024 12:39 PM EDT ? Dictated By: ?Syd Villa MD ? Signed By: ?<Electronically signed by Syd Villa MD in OV> ?07/28/24 1239 ? DD/ 1030 ? TD/TT: 07/27/24 1041 ? Economic History Teacher: ? Procedure Note Kj, Image - 07/28/2024 [place] [address] XRay Report Signed Patient: Amada Yanez DMR#: [id number] 45 : 1995Acct:[id number] Age/Sex: 29 FADM Date: 07/27/24 Loc: HO.NEURO Attending Dr: Amada Kidd MD Ordering Physician: Amada Gunn MD Date of Service: 07/27/24 Procedure(s): XR shoulder LT min 2V Accession Number(s): [id number] cc: Amada Gunn MD EXAMINATION: XR SHOULDER 2 OR MORE VIEWS LEFT HISTORY: chronic pain numbness and tingling COMPARISON: There are no prior studies available for comparison. FINDINGS: Four views of the left shoulder are submitted. Osseous mineralization is normal. There is no fracture or dislocation. There is possible slight elevation of the distal clavicle with respect to the acromion. The glenohumeral and acromioclavicular joint spaces are preserved. The soft tissues are unremarkable. XR/XR shoulder LT min 2V IMPRESSION: Possible slight elevation of the distal clavicle which could indicate AC separation. Clinical correlation is recommended. Otherwise unremarkable examination of the left shoulder. Electronically signed by: Syd Villa MD 07/28/2024 12:39 PM EDT RP Dictated By: Syd Villa MD Signed By: <Electronically signed by Syd Villa MD in OV> 07/28/24 1239 DD/ 1030 TD/TT: 07/27/24 1041 Economic History Teacher: Amada Kidd MD IMG XR PROCEDURES Fin al Result * Hepatitis C Antibody with Reflex to HCV, RNA, Quantitative, Real-Time PCR (05/25/2024 11:37 AM EST) Hepatitis C Antibody Nonreactive Nonreactive [facility] Comment:Antibodies to HCV no t detected; does not exclude early acuteHCV infection. Blood Venous blood specimen / Unknown 05/25/2024 11:37 AM EST 05/25/2024 1:14 PM EST Amada Kidd MD LAB BLOOD ORDERABLES Final Result [facility] [address] [place] [phone] * HIV-1/2 Antigen and Antibodies, Fourth Generation, with Reflexes (05/25/2024 11:37 AM EST) HIV AB/AG Nonreactive Nonreactive [facility] Comment:HIV-1 p24 Ag and/or HIV-1/HIV-2 Ab not detected.A test result that is nonreactive does not exclude thepossibility of exposure to or infection with HIV-1 and/orHIV-2. Nonreactive results in this assay for individualswith prior exposure to HIV-1 and/or HIV-2 may be due toantigen and antibody levels that are below the limit ofdetection of this assay.The [employer] HIV Ag/Ab Combo assay result andsupplemental assay results should be interpreted inconjunction with the patient's clinical presentation,history and other laboratory results. If the results areinconsistent with clinical evidence, additional testing issuggested to confirm the result. Blood Venous blood specimen / Unknown 05/25/2024 11:37 AM EST 05/25/2024 1:14 PM EST Amada Kidd MD LAB BLOOD ORDERABLES Final Result [facility] [address] [place] [phone] [phone] from Last 3 Months or Most Recently Relevant to Health Maintenance [place] [address] [place] [address] STANDARD Care Teams Exhibition Organiser Relationship Specialty Start Date End Date Amada Gunn MD [address] [place] [phone] PCP - General Internal Medicine 07/09/24
--- OUTSIDE RECORDS SUMMARY | 2024-09-20 09:50 | XMS_ITS | Clinical Summary ---
Author Organization [facility] Address [address] [place] [address] Phone Care Team Providers Care Boat Loader Helper Name Role Phone Pierre Ang MD Primary [...] EST - 07/05/2024 2:21 AM EST Emergency [facility] [address] [place] [address] Influenza A (Primary Dx) Discharge [...] ( season) 2024 09/25/2020, 08/25/2020 Influenza Vaccine (Season Ended) 2025 03/19/2023, 06/02/2019, 02/13/2018, Additional history exists Depression Screening [...] MOLECULAR STUDY STAT 07/04/2024 10:42 PM EST HM HIV SCREENING Routine 05/17/2019 PAP SMEAR Routine 09/26/2017 from Last 3 Months or Most Recently Relevant to Health Maintenance Results * ECG-Annotated (07/05/2024) us Provider Onbase MD ECG ORDERABLES Final Result * ECG 12 lead (07/04/2024 11:32 PM EST) Only the most recent of2 resultswithin the time period is included. Ventricular Rate ECG 92 BPM GEMUSE Atrial Rate 92 BPM GEMUSE P-R Interval 132 ms GEMUSE QRS Duration 76 ms GEMUSE Q-T Interval 332 ms GEMUSE QTc 410 ms GEMUSE P Wave Pingree 58 degrees GEMUSE R Pingree 64 degrees GEMUSE T Pingree -31 degrees GEMUSE ECG Interpretation Normal sinus [...] resultswithin the time period is included. Pathologist [facility] High Sensitivity Troponin I <3 <=54 ng/L [...] ORDERABLES Marisa l Result Performing Organization Address [facility] Co de Phone Number [facility] [address] [place] [address], [place] [phone] * B-type natriuretic peptide (07/04/2024 11:30 PM EST) BNP 7 <=100 pcg/mL LAB CHEMISTRY METHOD 07/05/2024 12:14 AM EST [facility] Blood Venous blood specimen / Unknown Venipuncture / Unknown 07/04/2024 11:30 PM EST 07/04/2024 11:37 PM EST Kenn Chavez MD LAB BLOOD ORDERABLES Marisa l Result Performing Organization Address [facility] Co de Phone Number [facility] [address] [place] [address], [place] [phone] * XR Chest 2 Views (07/04/2024 11:02 PM EST) Anatomical Region Laterality Modality Body Radiographic Diane ging 07/05/2024 8:13 AM EST Impressions 07/05/2024 8:14 AM EST Normal chest radiographs. -------- FINAL REPORT -------- Dictated By: Fernando Trevino Dictated Date: 07/05/2024 08:13 ET Assigned Physician: Fernando Trevino Reviewed and Electronically Signed By: Fernando Trevino Signed Date: 07/05/2024 08:14 ET Workstation ID: [id number] Transcribed By: Self Edit Transcribed Date: 07/05/2024 [...] Signed Date: 07/05/2024 08:14 ET Workstation ID: [id number] Transcribed By: Self Edit Transcribed Date: 07/05/2024 08:13 ET us Kenn Chavez MD IMG XR PROCEDURES Final R esult * (ABNORMAL) CBC auto differential (07/04/2024 10:47 PM EST) WBC 12.4(H) 4.8 - 10.8 K/mcL LAB HEMETOLOGY METHOD 07/04/2024 10:59 PM [facility] RBC 4.60 3.80 - 4.80 M/mcL LAB HEMETOLOGY METHOD 07/04/2024 10:59 PM [facility] Hemoglobin 12.6 11.5 - 16.0 g/dL LAB HEMETOLOGY METHOD 07/04/2024 10:59 PM [facility] Hematocrit 39.3 35.0 - 47.0 % LAB HEMETOLOGY METHOD 07/04/2024 10:59 PM [facility] MCV 85.1 79.0 - 98.0 FL LAB HEMETOLOGY METHOD 07/04/2024 10:59 PM [facility] MCH 27.3 27.0 - 32.0 pcg LAB HEMETOLOGY METHOD 07/04/2024 10:59 PM [facility] MCHC 32.1 32.0 - 37.0 g/dL LAB HEMETOLOGY METHOD 07/04/2024 10:59 PM [facility] RDW 13.2 11.0 - 15.0 % LAB HEMETOLOGY METHOD 07/04/2024 10:59 PM [facility] Platelets 298 130 - 400 K/mcL LAB HEMETOLOGY METHOD 07/04/2024 10:59 PM [facility] MPV 9.8 7.0 - 11.0 FL LAB HEMETOLOGY METHOD 07/04/2024 10:59 PM [facility] NRBC 0.0 <1.0 % LAB HEMETOLOGY METHOD 07/04/2024 10:59 PM [facility] NRBC Absolute 0.00 <0.10 K/mcL LAB HEMETOLOGY METHOD 07/04/2024 10:59 PM [facility] Neutrophils Relative 82.3 % LAB HEMETOLOGY METHOD 07/04/2024 10:59 PM [facility] Lymphocytes Relative 8.6 % LAB HEMETOLOGY METHOD 07/04/2024 10:59 PM [facility] Monocytes Relative 8.1 % LAB HEMETOLOGY METHOD 07/04/2024 10:59 PM [facility] Eosinophils Relative 0.5 % LAB HEMETOLOGY METHOD 07/04/2024 10:59 PM [facility] Basophils Relative 0.2 % LAB HEMETOLOGY METHOD 07/04/2024 10:59 PM [facility] Immature Granulocytes Relative 0.3 % [...] K/mcL LAB HEMETOLOGY METHOD 07/04/2024 10:59 PM [facility] Immature Granulocytes Absolute 0.04(H) 0.00 - 0.03 K/[facility] LAB HEMETOLOGY METHOD 07/04/2024 10:59 PM EST [facility] Blood Venous blood specimen / Unknown Venipuncture / Unknown 07/04/2024 10:47 PM EST 07/04/2024 10:52 PM EST us Kenn Chavez MD LAB BLOOD ORDERABLES Marisa l Result [facility] [address] [place] [address], * (ABNORMAL) Magnesium (07/04/2024 10:47 PM EST) Magnesium 1.8(L) 1.9 - 2.6 mg/dL LAB CHEMISTRY METHOD 07/04/2024 11:53 PM EST [facility] Blood Venous blood specimen / Unknown Venipuncture / Unknown 07/04/2024 10:47 PM EST 07/04/2024 10:52 PM EST Kenn Chavez MD LAB BLOOD ORDERABLES Marisa l Result Performing Organization Address City/[facility]/ZIP Co de Phone Number [facility] [address] [place] [address], [place] [phone] * Lipase (07/04/2024 10:47 PM EST) Pathologist [facility] Lipase 24 13 - 75 unit/L LAB CHEMISTRY METHOD 07/04/2024 11:53 PM [facility] Blood Venous blood specimen / Unknown Venipuncture / Unknown 07/04/2024 10:47 PM EST 07/04/2024 10:52 PM EST Kenn Chavez MD LAB BLOOD ORDERABLES Marisa l Result Performing Organization Address [facility]/ZIP Co de Phone Number [facility] [address] [place] [address], [place] [phone] * (ABNORMAL) Comprehensive metabolic panel (07/04/2024 10:47 PM EST) [facility] Sodium 132(L) 133 - 145 mmol/L LAB CHEMISTRY METHOD 07/05/2024 12:03 AM [facility] Potassium 3.2(L) 3.5 - 5.5 mmol/L LAB CHEMISTRY METHOD 07/05/2024 12:03 AM [facility] Chloride 99 96 - 110 mmol/L LAB CHEMISTRY METHOD 07/05/2024 12:03 AM [facility] CO2 21 21 - 32 mmol/L LAB CHEMISTRY METHOD 07/05/2024 12:03 AM [facility] Anion Gap 12(H) 3 - 11 LAB CHEMISTRY METHOD 07/05/2024 12:03 AM [facility] Glucose 143(H) 70 - 100 mg/dL LAB CHEMISTRY METHOD 07/05/2024 12:03 AM [facility] BUN 9 5 - 25 mg/dL LAB CHEMISTRY METHOD 07/05/2024 12:03 AM [facility] Creatinine 0.60 0.50 - 1.10 mg/dL LAB CHEMISTRY METHOD 07/05/2024 12:03 AM [facility] eGFR 124 >=60 mL/min/1. 73m2 LAB CHEMISTRY METHOD 07/05/2024 12:03 AM [facility] Comment:Calculation based on the??Chronic Kidney Disease Epidemiology Collaboration (CKD-EPI) equation refit??without adjustment for race. BUN/Creatinine Ratio 15.0 LAB CHEMISTRY METHOD 07/05/2024 12:03 AM [facility] Calcium 9.3 8.5 - 10.5 mg/dL LAB CHEMISTRY METHOD 07/05/2024 12:03 AM [facility] AST (SGOT) 26 10 - 42 unit/L LAB CHEMISTRY METHOD 07/05/2024 12:03 AM [facility] ALT (SGPT) 38 10 - 60 unit/L LAB CHEMISTRY METHOD 07/05/2024 12:03 AM [facility] Alkaline Phosphatase 74 42 - 121 unit/L LAB CHEMISTRY METHOD 07/05/2024 12:03 AM [facility] Total Protein 8.4(H) 6.0 - 8.0 g/dL LAB CHEMISTRY METHOD 07/05/2024 12:03 AM [facility] Albumin 4.3 3.2 - 5.0 g/dL LAB CHEMISTRY METHOD 07/05/2024 12:03 AM [facility] Total Bilirubin 1.2 0.0 - 1.4 mg/dL LAB CHEMISTRY METHOD 07/05/2024 12:03 AM [facility] Blood Venous blood specimen / Unknown Venipuncture / Unknown 07/04/2024 10:47 PM EST 07/04/2024 10:52 PM EST us Kenn Chavez MD LAB BLOOD ORDERABLES Marisa yin Result [facility] [address] [place] [address], * (ABNORMAL) Respiratory virus panel molecular study (07/04/2024 10:42 PM EST) Pathologist [facility] Adenovirus Detection by PCR Not Detected Not [...] Detected LAB MICROBIOLOGY METHOD 07/04/2024 11:53 PM [facility] Bordetella parapertussis Not Detected Not [...] Detected LAB MICROBIOLOGY METHOD 07/04/2024 11:53 PM [facility] SARS COV-2 Not Detected Not Detected LAB MICROBIOLOGY METHOD 07/04/2024 11:53 PM [facility] Swab Both anterior nares / Unknown Non-blood Collection / Unknown 07/04/2024 10:42 PM EST 07/04/2024 10:52 PM EST [facility] - 07/04/2024 11:53 PM EST Testing was performed using the [employer] Respiratory Pathogen PCR Assay. All results must [...] Final Result [facility] [address] [place] [address], [place] [phone] * HIV Screening (05/17/2019) Pathologist [facility] HIV Screening abstracted [facility] Provider HEALTH MAINTENANCE Final Result * Pap smear (09/26/2017) 09/26/2017 Narrative HISTORICAL TESTING LAB RESULTING AGENCY - 10/01/2017 2:07 PM EDT [id number] THINPREP PAP, IMAGED: NEGATIVE FOR SQUAMOUS INTRAEPITHELIAL LESION AND MALIGNANCY ??. CARMITA IS PRESENT. STEVEN JENNIFERBYRON MILLER, ROBERT(ASCP) (CASE ELECTRONICALLY SIGNED 10 01 2017) ADEQUACY: SATISFACTORY. ENDOCERVICAL/TRANSFORMATION ZONE COMPONENT PRESENT. SOURCE: THINPREP PAP HPV IF ASCUS, CERVICAL, IMAGED: CLINICAL INFORMATION: HPV IF DIAGNOSIS OF ASCUS. Z12.4, Z34.01, us Adilene Boston CNM LAB CYTOLOGY ORDERABLES Final Result HISTORICAL TESTING LAB RESULTING AGENCY from Last 3 Months or Most Recently Relevant to Health Maintenance Insurance MEDICAID - [place] Care Teams Boat Loader Helper Relationship Specialty Start Date End Date Pierre Ang MD [address] [place] [address] PCP - General Internal Medicine 09/14/21
--- NOTE | 2024-09-20 10:07 | MHC.OFFVIS ---
Vital Signs 09/20/24 10:08 Height 5 ft 5 in Weight 125 lb 10.616 oz BMI 20.9 BP 120/70 Blood Pressure Location Lt brachial Position Sitting Pulse 57 Intake Visit Reasons: head of digital/dr. sanchez/chest pain,palpitations Intake Note: New patient dx chest pain c/o heaviness with sharp pain for a few minutes Plate Grainer Required: No Allergies penicillin V Allergy (Unknown, Verified 08/14/18 00:00) rash Penicillins [PENICILLINS] Allergy (Unknown, Unverified 01/20/20 16:36) RASH Medication List - Last Reconciled 09/20/24 by Emory Steven MD vitamin E (dl, acetate) 45 mg PO DAILY Is last menstrual period known: Yes Post menopausal: No Patient : No HPI Comments Details: Amada was referred here for symptoms of chest tightness as well as polyp palpitations. She is a 29-year-old female with no significant past medical history and currently not on any significant medications. She denies any significant use of caffeine, alcohol, smoking. She is overall active. Over the last 2 months she has been having intermittent episodes of precordial chest tightness which are not clearly exertional in nature. These happen randomly and last for few minutes and then subside. She had also quick sensation stabbing in his chest consistent with skipped heartbeats or abnormal heartbeat as per her. No associated symptoms lightheadedness, syncope. She denies any exertional shortness of breath, orthopnea, PND. She had no history of preeclampsia during her . Most of the labs are fine. No strong family history for of any significant premature coronary artery disease or sudden cardiac that. [facility] Surgical History Hx of section Family History Father No problems noted. Mother HTN (hypertension) Diabetes Social History Patient Tobacco Use Status: Never used Tobacco Review of Systems Const Denies chills, Denies daytime sleepiness, Denies fatigue, Denies fever(s), Denies frequent falls, Denies poor appetite, Denies snoring, Denies stops breathing during sleep, Denies weakness, Denies weight gain and Denies weight loss Eyes Denies loss of vision ENT Denies dizziness and Denies hearing loss Card Reports chest pain, Denies claudication, Denies leg edema, Denies lightheadedness, Reports palpitations, Denies dyspnea, Denies dyspnea on exertion and Denies orthopnea Resp Denies cough, Denies excessive phlegm production, Denies dyspnea, Denies dyspnea on exertion, Denies snoring and Denies wheezing GI Denies abdominal pain, Denies hematochezia, Denies change in bowel habits, Denies nausea and Denies vomiting Denies urinary frequency and Denies dysuria Musc Denies arthralgias, Denies muscle weakness, Denies numbness and Denies other (frequent falls) Skin/Breast Denies nail changes and Denies rash Neuro Denies Abnormal speech present, Denies dizziness, Denies frequent falls, Denies loss of vision, Denies memory loss, Denies numbness and Denies weakness Psych Denies depression and Denies memory loss Endo Denies fatigue and Reports palpitations Donavan/Lymph Reports easy bruising and Reports other (anemia) Aller/Immun Denies wheezing Physical Exam Vital Signs: Last Vital Signs Pulse 57 09/20/24 10:08 BP 120/70 09/20/24 10:08 BMI result Body Mass Index 20.9 Const General: cooperative, comfortable, no acute distress, alert, awake and Physically active Nutritional Appearance: average body habitus Orientation/consciousness: patient oriented x3 Limitations: no limitations HEENT Head: Yes normocephalic and Yes atraumatic Neck Neck: Yes trachea midline, Yes supple and Yes no JVD Resp Effort & Inspection: normal respiratory effort Auscultation: clear to auscultation bilaterally Cardio Jugular venous distension: no JVD Palpation: normal PMI Rate: regular rate Rhythm: regular rhythm Heart sounds: S1 normal heart sound present, S2 normal heart sound present, no click, no gallops and no murmurs GI Auscultation: normal bowel sounds Skin General skin exam: no rashes or lesions noted Neuro General: patient oriented x3 and no focal motor deficits Speech: No Abnormal speech present Extrem General: Yes no clubbing, cyanosis or edema Psych Appearance: grossly normal Office Procedures EKG Details: EKG shows normal sinus rhythm with sinus arrhythmia otherwise normal EKG [id number], Complete Assessment & Plan Assessment & Plan (1) Palpitations: Code(s): R00.2 - Palpitations Plan: Patient's symptoms of palpitation/skipped heartbeats/stabbing chest pain most suggestive of extra systoles. Will obtain a 7 day Holter monitor to assess for the same to assess for type of arrhythmias as well as frequency. This will guide further treatment. Stress mitigation strategies were discussed. Avoidance of stimulants was discussed. Will obtain echocardiogram to assess LV systolic and diastolic function to evaluate for any valvular abnormality. This test will be scheduled in near future. No pharmacotherapy he has been recommended at this point in time. (2) Atypical chest pain: Code(s): R07.89 - Other chest pain Plan: Intermittent episode of chest tightness which is atypical for myocardial ischemia. She does not have much risk factors for coronary disease. Would suggest a treadmill stress test to assess for exercise capacity as well as exercise-induced arrhythmia. Possibility includes musculoskeletal chest pain/GI related chest pain. Will follow up in the clinic after above-mentioned test. Thank you for allowing me to partake in her care Coding Level of Care Code New Pt Level 4 (81921) Complex EM visit Add On G2211 Diagnoses Palpitations R00.2 Atypical chest pain R07.89 CPT Codes EKG - CPT: 71595-[id number], Complete ([id number])
[2024-09-20 10:08] VITALS: BP 120/70; PULSE 57; BMI 20.9
== END 2024-09-20 10:31 | disposition home or self-care (01) ==
LOC: HO.HCS 09:30
PROVIDERS: PCP Internal Medicine; Visit Provider Internal Medicine Cardiovascular Disease
DX: R00.2 Palpitations (principal); R07.89 Other chest pain
CPT/HCPCS: 93010; 99204

== ENCOUNTER → 2024-09-20 09:30 | Outpatient (BNVA) | payer MEDICAID, SELFPAY | PROVIDERS: PCP Internal Medicine; Visit Provider Internal Medicine Cardiovascular Disease | DX: R00.2 Palpitations (principal); R07.89 Other chest pain | CPT/HCPCS: 93005; 99202 ==

== ENCOUNTER 2024-09-23 11:13 | Outpatient (AMB) | payer MEDICAID, SELFPAY ==
[2024-09-23 11:17] VITALS: BMI 20.8
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
--- OUTSIDE RECORDS SUMMARY | 2024-09-23 11:52 | XMS_ITS | Clinical Summary ---
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) 07/30/2024 Telephone [facility] [address] [place] [address] Amada Gunn MD Results; Appointment Request 07/22/2024 [place] [address] Amada Gunn MD Care Management ([facility] graduation) 07/16/2024 Population Health Risk Score [facility] (C3) Department [address] [place] [address] [phone] Provider, Population Health Generic 07/12/2024 11:00 AM EDT Telemedicine [place] [address] Amada Gunn MD Chronic left shoulder pain (Primary Dx); Left arm pain; Numbness and tingling; Vitamin D deficiency; Migraine with aura and without status migrainosus, not intractable 07/12/2024 Travel 07/09/2024 [place] [address] Amada Gunn MD Chart Prep 07/05/2024 Travel 06/28/2024 Telephone [facility] [place], [place] [phone] Maggy Beck Care Management ([facility] follow up call) from Last 3 Months [...] history exists Depression Screening 05/25/2025 05/25/2024, 05/25/19 SDOH Screening 05/25/2025 05/25/2024 Tobacco Screening 05/25/2025 05/25/2024 Disability Screening 07/05/2025 07/05/2024 DTaP/Tdap/Td Vaccines (9 - Td or [...] EDT Narrative 07/28/2024 12:42 PM EDT ? [facility] ?[address] ?[place] [address] ?XRay Report ? Signed ? Patient: Amada Yanez D ?MR#: [id number] ?? 45 ? : 1995 ?Acct:[id number] ? Age/Sex: 29 / F ?ADM Date: 07/27/24 ? Loc: HO.NEURO ? Attending Dr: Amada Kidd MD ? Ordering Physician: Amada Gunn MD ?? Date of Service: 07/27/24 ?? Procedure(s): XR shoulder LT min 2V ?? Accession Number(s): [id number] ? cc: Amada Gunn MD ? EXAMINATION: [...] DD/ 1030 ? TD/TT: 07/27/24 1041 ? Noodle Catal[employer] Maker: ? Procedure Note Donsoraidater, Image - 07/28/2024 [place] [address] XRay Report Signed Patient: Amada Yanez DMR#: [id number] 45 : 1995Acct:[id number] Age/Sex: Date: 07/27/24 Loc: HO.NEURO Attending Dr: Amada Kidd MD Ordering Physician: Amada Gunn MD Date of Service: 07/27/24 Procedure(s): XR shoulder LT min 2V Accession Number(s): [id number] cc: Amada Gunn MD EXAMINATION: XR SHOULDER [...] Syd Villa MD 07/28/2024 12:39 PM EDT Dictated By: Syd Villa MD Signed By: <Electronically signed by Syd Villa MD in OV> 07/28/24 1239 DD/ 1030 TD/TT: 07/27/24 1041 Noodle Catalyst Maker: Amada Kidd MD IMG XR PROCEDURES Fin al Result * Hepatitis C Antibody with Reflex to HCV, RNA, Quantitative, Real-Time PCR (05/25/2024 11:37 AM EST) Hepatitis C Antibody Nonreactive Nonreactive [facility] Comment:Antibodies to HCV no t detected; does not exclude early acuteHCV infection. Blood Venous blood specimen / Unknown 05/25/2024 11:37 AM EST 05/25/2024 1:14 PM EST us Amada Kidd MD LAB BLOOD ORDERABLES Final Result [facility] [address] [place] [phone] * HIV-1/2 Antigen and Antibodies, Fourth Generation, with Reflexes (05/25/2024 11:37 AM EST) HIV AB/AG Nonreactive Nonreactive [facility] Comment:HIV-1 p24 Ag and/or HIV-1/HIV-2 Ab not detected.A test result that is nonreactive does not exclude thepossibility of exposure to or infection with HIV-1 and/orHIV-2. Nonreactive results in this assay for individualswith prior exposure to HIV-1 and/or HIV-2 may be due toantigen and antibody levels that are below the limit ofdetection of this assay.The [employer] HIV Ag/Ab Combo assay result andsupplemental assay results should be interpreted inconjunction with the patient's clinical presentation,history and other laboratory results. If the results areinconsistent with clinical evidence, additional testing issuggested to confirm the result. Blood Venous blood specimen / Unknown 05/25/2024 11:37 AM EST 05/25/2024 1:14 PM EST Amada Kidd MD LAB BLOOD ORDERABLES Final Result [facility] [address] [place] [address] [phone] from Last 3 Months or Most Recently Relevant to Health Maintenance Insurance [facility] Care Teams Operations Supervisor Chemical Cleaning Relationship Specialty Start Date End Date Amada Gunn MD [address] [place] [phone] PCP - General Internal Medicine 07/09/24
--- OUTSIDE RECORDS SUMMARY | 2024-09-23 11:52 | XMS_ITS | Clinical Summary ---
Author Organization [facility] Address [address] [place] [address] Phone Care Team Providers Care Mechanical Artist Name Role Phone Pierre Ang MD Primary Care Provider [phone] Allergies Active Allergy Reactions Criticality Noted Date [...] EST - 07/05/2024 2:21 AM EST Emergency [facility] Emergency [address] [place] [address] Influenza A (Primary Dx) Discharge [...] GEMUSE QTc 410 ms GEMUSE P Wave [place] 58 degrees GEMUSE R [place] 64 degrees GEMUSE T [place] -31 degrees GEMUSE ECG Interpretation Normal sinus [...] resultswithin the time period is included. Pathologist [facility] High Sensitivity Troponin I <3 <=54 ng/L LAB CHEMISTRY METHOD 07/05/2024 12:06 AM EST [facility] Blood Venous blood specimen / Unknown Venipuncture / Unknown 07/04/2024 11:30 PM EST 07/04/2024 11:37 PM EST Narrative [facility] - 07/05/2024 12:06 AM EST High levels of biotin in samples may falsely decrease hsTroponin values. ??Use caution when interpreting hsTroponin results in patients taking biotin who exhibit renal impairment (eGFR <60) or in patients taking more than 20 mg/day of biotin. Kenn Chavez MD LAB BLOOD ORDERABLES Marisa l Result Performing Organization Address [facility] Co de Phone Number [facility] [address] [place] [address], [place] [phone] * B-type natriuretic peptide (07/04/2024 11:30 PM EST) BNP 7 <=100 pcg/mL LAB CHEMISTRY METHOD 07/05/2024 12:14 AM EST [facility] Blood Venous blood specimen / Unknown Venipuncture / Unknown 07/04/2024 11:30 PM EST 07/04/2024 11:37 PM EST Kenn Chavez MD LAB BLOOD ORDERABLES Marisa l Result Performing Organization Address [facility] Co de Phone Number [facility] [address] [place] [address], [place] [phone] * XR Chest 2 Views (07/04/2024 11:02 PM EST) Anatomical Region Laterality Modality Body Radiographic Diane ging 07/05/2024 8:13 AM EST Impressions 07/05/2024 8:14 AM EST Normal chest radiographs. -------- FINAL REPORT -------- Dictated By: Fernando Trevino Dictated Date: 07/05/2024 08:13 ET Assigned Physician: Fernando Trevino Reviewed and Electronically Signed By: Fernando Trevino Signed Date: 07/05/2024 08:14 ET Workstation ID: [id number] Transcribed By: Self Edit Transcribed Date: 07/05/2024 [...] Signed Date: 07/05/2024 08:14 ET Workstation ID: [id number] Transcribed By: Self Edit Transcribed Date: 07/05/2024 08:13 ET us Kenn Chavez MD IMG XR PROCEDURES Final R esult * (ABNORMAL) CBC auto differential (07/04/2024 10:47 PM EST) WBC 12.4(H) 4.8 - 10.8 K/mcL LAB HEMETOLOGY METHOD 07/04/2024 10:59 PM [facility] RBC 4.60 3.80 - 4.80 M/mcL LAB HEMETOLOGY METHOD 07/04/2024 10:59 PM [facility] Hemoglobin 12.6 11.5 - 16.0 g/dL LAB HEMETOLOGY METHOD 07/04/2024 10:59 PM [facility] Hematocrit 39.3 35.0 - 47.0 % LAB HEMETOLOGY METHOD 07/04/2024 10:59 PM [facility] MCV 85.1 79.0 - 98.0 FL LAB HEMETOLOGY METHOD 07/04/2024 10:59 PM [facility] MCH 27.3 27.0 - 32.0 pcg LAB HEMETOLOGY METHOD 07/04/2024 10:59 PM [facility] MCHC 32.1 32.0 - 37.0 g/dL LAB HEMETOLOGY METHOD 07/04/2024 10:59 PM [facility] RDW 13.2 11.0 - 15.0 % LAB HEMETOLOGY METHOD 07/04/2024 10:59 PM [facility] Platelets 298 130 - 400 K/mcL LAB HEMETOLOGY METHOD 07/04/2024 10:59 PM [facility] MPV 9.8 7.0 - 11.0 FL LAB HEMETOLOGY METHOD 07/04/2024 10:59 PM [facility] NRBC 0.0 <1.0 % LAB HEMETOLOGY METHOD 07/04/2024 10:59 PM [facility] NRBC Absolute 0.00 <0.10 K/mcL LAB HEMETOLOGY METHOD 07/04/2024 10:59 PM [facility] Neutrophils Relative 82.3 % LAB HEMETOLOGY METHOD 07/04/2024 10:59 PM [facility] Lymphocytes Relative 8.6 % LAB HEMETOLOGY METHOD 07/04/2024 10:59 PM [facility] Monocytes Relative 8.1 % LAB HEMETOLOGY METHOD 07/04/2024 10:59 PM [facility] Eosinophils Relative 0.5 % LAB HEMETOLOGY METHOD 07/04/2024 10:59 PM [facility] Basophils Relative 0.2 % LAB HEMETOLOGY METHOD 07/04/2024 10:59 PM [facility] Immature Granulocytes Relative 0.3 % LAB HEMETOLOGY METHOD 07/04/2024 10:59 PM EST [facility] Neutrophils Absolute 10.23(H) 1.50 - 7.00 K/mcL LAB HEMETOLOGY METHOD 07/04/2024 10:59 PM EST [facility] Lymphocytes Absolute 1.07 1.00 - 5.00 K/mcL LAB HEMETOLOGY METHOD 07/04/2024 10:59 PM EST [facility] Monocytes Absolute 1.01(H) 0.20 - 1.00 K/mcL LAB HEMETOLOGY METHOD 07/04/2024 10:59 PM EST [facility] Eosinophils Absolute 0.06 0.00 - 0.50 K/mcL LAB HEMETOLOGY METHOD 07/04/2024 10:59 PM EST [facility] Basophils Absolute 0.02 0.00 - 0.20 K/mcL LAB HEMETOLOGY METHOD 07/04/2024 10:59 PM [facility] Immature Granulocytes Absolute 0.04(H) 0.00 - 0.03 K/[facility] LAB HEMETOLOGY METHOD 07/04/2024 10:59 PM EST [facility] Blood Venous blood specimen / Unknown Venipuncture / Unknown 07/04/2024 10:47 PM EST 07/04/2024 10:52 PM EST us Kenn Chavez MD LAB BLOOD ORDERABLES Marisa l Result [facility] [address] [place] [address], * (ABNORMAL) Magnesium (07/04/2024 10:47 PM EST) Magnesium 1.8(L) 1.9 - 2.6 mg/dL LAB CHEMISTRY METHOD 07/04/2024 11:53 PM EST [facility] Blood Venous blood specimen / Unknown Venipuncture / Unknown 07/04/2024 10:47 PM EST 07/04/2024 10:52 PM EST Kenn Chavez MD LAB BLOOD ORDERABLES Marisa l Result Performing Organization Address City/[facility]/ZIP Co de Phone Number [facility] [address] [place] [address], [place] [phone] * Lipase (07/04/2024 10:47 PM EST) Pathologist [facility] Lipase 24 13 - 75 unit/L LAB CHEMISTRY METHOD 07/04/2024 11:53 PM [facility] Blood Venous blood specimen / Unknown Venipuncture / Unknown 07/04/2024 10:47 PM EST 07/04/2024 10:52 PM EST Kenn Chavez MD LAB BLOOD ORDERABLES Marisa l Result Performing Organization Address [facility]/ZIP Co de Phone Number [facility] [address] [place] [address], [place] [phone] * (ABNORMAL) Comprehensive metabolic panel (07/04/2024 10:47 PM EST) [facility] Sodium 132(L) 133 - 145 mmol/L LAB CHEMISTRY METHOD 07/05/2024 12:03 AM [facility] Potassium 3.2(L) 3.5 - 5.5 mmol/L LAB CHEMISTRY METHOD 07/05/2024 12:03 AM [facility] Chloride 99 96 - 110 mmol/L LAB CHEMISTRY METHOD 07/05/2024 12:03 AM [facility] CO2 21 21 - 32 mmol/L LAB CHEMISTRY METHOD 07/05/2024 12:03 AM [facility] Anion Gap 12(H) 3 - 11 LAB CHEMISTRY METHOD 07/05/2024 12:03 AM [facility] Glucose 143(H) 70 - 100 mg/dL LAB CHEMISTRY METHOD 07/05/2024 12:03 AM [facility] BUN 9 5 - 25 mg/dL LAB CHEMISTRY METHOD 07/05/2024 12:03 AM [facility] Creatinine 0.60 0.50 - 1.10 mg/dL LAB CHEMISTRY METHOD 07/05/2024 12:03 AM [facility] eGFR 124 >=60 mL/min/1. 73m2 LAB CHEMISTRY METHOD 07/05/2024 12:03 AM [facility] Comment:Calculation based on the??Chronic Kidney Disease Epidemiology Collaboration (CKD-EPI) equation refit??without adjustment for race. BUN/Creatinine Ratio 15.0 LAB CHEMISTRY METHOD 07/05/2024 12:03 AM [facility] Calcium 9.3 8.5 - 10.5 mg/dL LAB CHEMISTRY METHOD 07/05/2024 12:03 AM [facility] AST (SGOT) 26 10 - 42 unit/L LAB CHEMISTRY METHOD 07/05/2024 12:03 AM [facility] ALT (SGPT) 38 10 - 60 unit/L LAB CHEMISTRY METHOD 07/05/2024 12:03 AM [facility] Alkaline Phosphatase 74 42 - 121 unit/L LAB CHEMISTRY METHOD 07/05/2024 12:03 AM [facility] Total Protein 8.4(H) 6.0 - 8.0 g/dL LAB CHEMISTRY METHOD 07/05/2024 12:03 AM [facility] Albumin 4.3 3.2 - 5.0 g/dL LAB CHEMISTRY METHOD 07/05/2024 12:03 AM [facility] Total Bilirubin 1.2 0.0 - 1.4 mg/dL LAB CHEMISTRY METHOD 07/05/2024 12:03 AM [facility] Blood Venous blood specimen / Unknown Venipuncture / Unknown 07/04/2024 10:47 PM EST 07/04/2024 10:52 PM EST us Kenn Chavez MD LAB BLOOD ORDERABLES Marisa yin Result [facility] [address] [place] [address], * (ABNORMAL) Respiratory virus panel molecular study (07/04/2024 10:42 PM EST) Pathologist [facility] Adenovirus Detection by PCR Not Detected Not Detected LAB MICROBIOLOGY METHOD 07/04/2024 11:53 PM EST [facility] Influenza B PCR Not Detected Not Detected LAB MICROBIOLOGY METHOD 07/04/2024 11:53 PM EST [facility] Coronavirus 229E Not Detected Not Detected LAB MICROBIOLOGY METHOD 07/04/2024 11:53 PM EST [facility] Coronavirus HKU1 Not Detected Not Detected LAB MICROBIOLOGY METHOD 07/04/2024 11:53 PM EST [facility] Coronavirus OC43 Not Detected Not Detected LAB MICROBIOLOGY METHOD 07/04/2024 11:53 PM EST [facility] Coronavirus NL63 Not Detected Not Detected LAB MICROBIOLOGY METHOD 07/04/2024 11:53 PM EST [facility] Parainfluenza Virus 1 Not Detected Not Detected LAB MICROBIOLOGY METHOD 07/04/2024 11:53 PM EST [facility] Parainfluenza Virus 2 Not Detected Not Detected LAB MICROBIOLOGY METHOD 07/04/2024 11:53 PM EST [facility] Parainfluenza Virus 3 Not Detected Not Detected LAB MICROBIOLOGY METHOD 07/04/2024 11:53 PM EST [facility] Parainfluenza Virus 4 Not Detected Not Detected LAB MICROBIOLOGY METHOD 07/04/2024 11:53 PM EST [facility] RSV PCR Not Detected Not Detected LAB MICROBIOLOGY METHOD 07/04/2024 11:53 PM EST [facility] Human Metapneumovirus A and B Not Detected Not Detected LAB MICROBIOLOGY METHOD 07/04/2024 11:53 PM EST [facility] Rhinovirus/Entero virus Not Detected Not Detected LAB MICROBIOLOGY METHOD 07/04/2024 11:53 PM EST [facility] Bordetella pertussis Not Detected Not Detected LAB MICROBIOLOGY METHOD 07/04/2024 11:53 PM [facility] Bordetella parapertussis Not Detected Not Detected LAB MICROBIOLOGY METHOD 07/04/2024 11:53 PM EST [facility] Influenza A H3 Detected(A ) Not Detected LAB MICROBIOLOGY METHOD 07/04/2024 11:53 PM EST [facility] Mycoplasma pneumo by PCR Not Detected Not Detected LAB MICROBIOLOGY METHOD 07/04/2024 11:53 PM EST [facility] Chlamydia pneumoniae Not Detected Not Detected LAB MICROBIOLOGY METHOD 07/04/2024 11:53 PM [facility] SARS COV-2 Not Detected Not Detected LAB MICROBIOLOGY METHOD 07/04/2024 11:53 PM [facility] Swab Both anterior nares / Unknown Non-blood Collection / Unknown 07/04/2024 10:42 PM EST 07/04/2024 10:52 PM EST [facility] - 07/04/2024 11:53 PM EST Testing was performed using the [employer] Respiratory Pathogen PCR Assay. All results must [...] MICROBIOLOGY - GENERA L ORDERABLES Final Result [facility] [address] [place] [address], [place] [phone] * HIV Screening (05/17/2019) Pathologist [facility] HIV Screening abstracted [facility] Provider HEALTH MAINTENANCE Final Result * Pap smear (09/26/2017) 09/26/2017 Narrative HISTORICAL TESTING LAB RESULTING AGENCY - 10/01/2017 2:07 PM EDT [id number] THINPREP PAP, IMAGED: NEGATIVE FOR SQUAMOUS INTRAEPITHELIAL [...] Maintenance Insurance MEDICAID - [place] Care Teams Mechanical Artist Relationship Specialty Start Date End Date Pierre Ang MD [address] [place] [address] PCP - General Internal Medicine 09/14/21
== END 2024-09-23 11:57 | disposition home or self-care (01) ==
LOC: HO.HOS 11:13
PROVIDERS: PCP Internal Medicine; Visit Provider Orthopaedic Surgery
DX: M25.312 Other instability, left shoulder (principal)
CPT/HCPCS: 99203

== ENCOUNTER → 2024-09-23 11:13 | Outpatient (BNVA) | payer MEDICAID, SELFPAY | PROVIDERS: PCP Internal Medicine; Visit Provider Orthopaedic Surgery | DX: M25.312 Other instability, left shoulder (principal) | CPT/HCPCS: 99202 ==

== ENCOUNTER 2024-10-09 09:18 | Outpatient (REF) | payer MEDICAID, SELFPAY ==
--- NOTE | ~2024-10-09 | MR_ITS ---
CLINICAL HISTORY: M25.312 - Other instability, left shoulder MR left shoulder without gadolinium Comparison: OT - MR SHOULDER LT WO CON - 10/09/24 09:57 EDT CR/SR - XR SHOULDER LT MIN 2V - 07/27/24 10:42 EDT Findings: No acute fracture or pathologic bone lesion. Mild periarticular osteophyte formation of the acromioclavicular and glenohumeral joints. Type II acromion without downsloping. No effusion. Mild T2 signal elevation diffusely throughout the supraspinatus and anterior infraspinatus tendons at the humeral insertion site extending to the musculotendinous junction, indicating tendinopathy. The supraspinatus, infraspinatus, subscapularis, and teres minor tendons are intact. No tears of the long head of biceps tendon. No tears of the glenoid labrum. IMPRESSION: 1. Supraspinatus and infraspinatus tendinopathy. No rotator cuff tear. 2. Mild acromioclavicular and glenohumeral joint osteoarthritis. This document has been electronically signed by: Sergey Lay MD on 10/11/2024 16:59:01
== END 2024-10-09 09:19 | disposition home or self-care (01) ==
LOC: HO.MRI 09:18
PROVIDERS: PCP Internal Medicine; Visit Provider Orthopaedic Surgery
DX: M25.312 Other instability, left shoulder (principal)
CPT/HCPCS: 73221

== ENCOUNTER → 2024-10-09 09:26 | Outpatient (BNV) | payer MEDICAID, SELFPAY | PROVIDERS: PCP Internal Medicine; Visit Provider Radiology Diagnostic Radiology | DX: M75.82 Other shoulder lesions, left shoulder (principal) | CPT/HCPCS: 73221 ==

== ENCOUNTER → 2024-11-04 08:48 | Outpatient (REF) | payer MEDICAID, SELFPAY ==
--- NOTE | 2024-11-04 08:50 | HM_ITS ---
* Total monitoring time 2 days. * Underlying rhythm is sinus with an average rate of 71/Min. * Rare supraventricular ectopy. * Rare ventricular ectopy. * No significant pauses or high-grade AV blocks. * No patient markers or diary events. MTDD
--- NOTE | 2024-11-04 08:50 | CA_ITS ---
Acquisition Time: 2024-11-04 10:08:23 Total Exercise Time: 00:08:59 Test Indications: CP,Palpitations Medications: VIT E Protocol: MARCELL Max HR: 166 BPM 87% of Pred: 190 BPM Max BP: 116/70 mmHG Max Work Load: 10.1 METS Exercise stress test with exercise 8 mins 59 secs of Marcell Protocol, achieving 87% MPHR, with reports of feeling tired, no chest pain, without any arrythmias, with normotensive response to exercise. Without any EKG changes meeting criteria for ischemia. In recovery, pt reported feeling dizzy after sitting down in chair that improved quickly. Test reviewed with Dr. Steven. Referred By: Emory Steven Electronically Signed By: Michael Mccarthy
--- NOTE | 2024-11-04 08:50 | CA_ITS ---
Transthoracic Echocardiogram Patient (Last, First, Middle): Amada Yanez D Gender: Female Date of : 1995 Age: 29 Procedure Date: 11/04/2024 Procedure Type: Transthoracic Echocardiogram Location: OP Height: 165.1 cm Weight: 56.7 kg BSA: 1.62 m2 Heart Rate: 62 bpm BP: 120 / 70 mmHg Roustabout Hand: MONIK Referring MD: Emory Steven MD Signals Officer: Emory Steven MD Symptoms: R00.2 - Palpitations Study Quality: Adequate ECG Rhythm: Sinus Conclusions: - Normal study Findings Left Ventricle Normal left ventricular size, thickness, and systolic function. The visually estimated ejection fraction is between 65-70%. Spectral Doppler is indicative of a normal filling pattern. Right Ventricle Normal right ventricular cavity size and systolic function. Atria Both atria are normal in size. There is no evidence of interatrial shunt. Aortic Valve Normal aortic valve structure and function. There is no aortic valve stenosis. There is no aortic valve regurgitation. Mitral Valve Normal mitral valve structure and function. There is trace mitral valve regurgitation. There is no mitral valve stenosis. Pulmonic Valve The pulmonic valve is likely normal. There is trace pulmonic valve regurgitation. Tricuspid Valve Normal tricuspid valve structure. There is trace tricuspid valve regurgitation. The right ventricular systolic pressure is normal. The right ventricular systolic pressure is 20 mmHg. Normal right atrial pressure. There is no evidence of pulmonary hypertension. Great Vessels All visible segments of the aorta are normal in size. The visualized portions of the pulmonary artery and branches are normal. Venous The inferior vena cava is normal in size and collapses greater than 50% with inspiration. Pericardium/Pleural There is no evidence of pericardial effusion. Prior Study Comparison No prior study available for comparison. Measurements 2D Linear Measurements IVSd: 0.51 0.6-0.9/0.6-1.0 cm LVIDd: 4.05 3.9-5.3/4.2-5.9 cm LVIDd Index: 2.50 2.4-3.2/2.2-3.1 cm/m2 LVIDs: 2.94 2.0-3.6 cm LVPWd: 0.58 0.7-1.1 cm LA Diam: 2.90 2.7-3.8/3.0-4.0 cm LAIDs Index: 1.79 1.5-2.3 cm/m2 LV Mass: 72.06 67-162/88-224 g LV Mass Index: 44.48 43-95/49-115 g/m2 LVOT Diam: 2.00 3.0+(-)1.3 cm 2D Systolic Function EF 4C: 63.70 >55% EF 2C: 67.60 >55% EF BiP: 65.60 >55% Mitral Valve MV Pk E: 0.77 MV PK A: 0.43 MV Decel Time: 188.00 E/A: 1.80 E'Lateral: 18.50 E'Medial: 11.50 E/E' Med: 6.70 E/E' Lat: 4.20 PHT: 55.00 MVA PHT: 4.00 Decel Ashe: 4.10 Aortic Valve AoV Pk Jaiden: 1.24 AoV Pk Grad: 6.00 KAJAL: 2.65 LVOT LVOT Pk Jaiden: 1.09 LVOT Mn Jaiden: 0.74 LVOT VTI: 0.23 LVOT Pk Grad: 5.00 LVOT Mn Grad: 2.00 LVOT Diam: 2.00 LVOT Area: 3.14 Diastolic Function MV Pk E: 0.77 MV Pk A: 0.43 E/A: 1.80 E'Medial: 11.50 E/E' Med: 6.70 E' Laterial: 18.50 E/E' Lat: 4.20 Right Ventricle TAPSE (mm): 20.00 TVS' Jaiden: 11.60 Tricuspid Valve TR Pk Jaiden: 2.04 TR Pk Grad: 17.00 RA Press: 3.00 RVSP: 20.00 Great Vessels Aorta Sinus of Valsalva: 2.30 2.0-3.5 cm Ao Asc: 2.30 2.1-3.4 cm Pulmonary Veins Pulm Vein S/D 1.20 Pulmonary Valve PV Pk Jaiden: 0.87 Peak PV Grad: 3.00 Updated in Other Vendor System with Status of Final Emory Steven MD electronically signed on 11/04/2024 11:02:26 AM with status of Final
--- OUTSIDE RECORDS SUMMARY | 2024-11-04 08:56 | XMS_ITS | Clinical Summary ---
Author Organization [employer] Address [address] [facility] [address] [place] [address] Care Team Providers Care Radio Sales Account Executive Name Role Phone Amada Gunn MD Primary [...] Encounters Date Type Department Care Team Description 10/12/2024 Telephone [facility] [address] [place] [address] Amada Gunn MD SEP RECALL 10/09/2024 Orders Only [facility] External Provider, [facility] from Last 3 Months Social History Tobacco [...] your housing situation today? I have richard aurelio 08/14/[address] you li [...] 71 05/25/2024 10:45 AM EST Temperature 36.9 C (98.4 F) 05/25/2024 10:45 AM EST Respiratory Rate 18 05/25/2024 10:45 AM EST Oxygen Saturation 100% 05/25/2024 10:45 AM EST Inhaled Oxygen Concentration - - Weight 58.7 kg (129 lb 6.4 oz) 05/25/2024 10:45 AM EST Height 165.1 cm (5' 5 ) 05/25/2024 10:45 AM EST Body Mass Index 21.53 05/25/2024 10:45 AM EST Plan of Treatment Upcoming Encounters Date Type Department Care Team (Late st Contact Info) Description 01/12/2025 3:30 PM EDT Office Visit [facility] [address] [place] [address] Amada Gunn MD [address] [place] [address] Health Maintenance Due Date Last Done Comments IPV Vaccines (2 of 3 - 4-dose series) 05/01/1996 04/03/1996 Alcohol/Substance Use Screening 2006 Family Planning (PISQ) 2009 Pap Smear 2015 Cervical Cancer Screening 01/02/2024 HPV/Cotest 01/02/2024 COVID-19 Vaccine ( season) 2024 09/25/2020, 08/25/2020 Influenza Vaccine (#1) 2025 , 03/19/2023, 06/02/2019, Additional history exists Depression [...] Years) and At-Risk Patients (6 to 49) Years Aged Out No longer eligible based on patient's age to complete this topic RSV under 20 months Aged Out No longe r eligible based on patient's age to complete this topic Rotavirus Vaccines Aged Out No longer eligible based on patient's age to complete this topic Procedures Procedure Name Priority Date/Time Associated Diagnosis Comments MR SHOULDER WO CONTRAST LEFT Routine 10/11/2024 4:59 PM EDT HEPATITIS C AB W/REFL TO HCV RNA, QN, PCR Routine 05/25/2024 11:37 AM EST Palpitations HIV 1/2 ANTIGEN/ANTIBODY, FOURTH GENERATION W/RFL Routine 05/25/2024 11:37 AM EST Palpitations from Last 3 Months or Most Recently Relevant to Health Maintenance Results * MR Shoulder w/o Contrast Left (10/11/2024 4:59 PM EDT) Anatomical Region Laterality Modality Upper Extremities, Shoulder Left Magn etic Resonance 10/11/2024 4:59 PM EDT Narrative 10/11/2024 5:00 PM EDT [place] [address] Magnetic Resonance Report Signed Patient: Amada Yanez MR#: [id number] 46 : 1995 Acct:[id number] Age/Sex: 29 / F ADM Date: 10/09/24 Loc: HO.MRI Attending Dr: Johnathan Aden MD Ordering Physician: Johnathan Aden MD Date of Service: 10/09/24 Procedure(s): MR shoulder LT wo con Accession Number(s): [id number] cc: Amada uGnn MD; Johnathan Aden MD CLINICAL HISTORY: M25.312 - Other instability, left shoulder MR left shoulder without gadolinium Comparison: OT - MR SHOULDER LT WO CON - 10/09/24 09:57 EDT CR/SR - XR SHOULDER LT MIN 2V - 07/27/24 10:42 EDT Findings: No acute fracture or pathologic bone lesion. Mild periarticular osteophyte formation of the acromioclavicular and glenohumeral joints. Type II acromion without downsloping. No effusion. Mild T2 signal elevation diffusely throughout the supraspinatus and anterior infraspinatus tendons at the humeral insertion site extending to the musculotendinous junction, indicating tendinopathy. The supraspinatus, infraspinatus, subscapularis, and teres minor tendons are intact. No tears of the long head of biceps tendon. No tears of the glenoid labrum. IMPRESSION: 1. Supraspinatus and infraspinatus tendinopathy. No rotator cuff tear. 2. Mild acromioclavicular and glenohumeral joint osteoarthritis. This document has been electronically signed by: Sergey Lay MD on 10/11/2024 16:59:01 Dictated By: Sergey Lay MD Signed By: <Electronically signed by Sergey Lay MD in [place]> 10/11/241658 DD/ 58 TD/TT: 10/11/241658 Lead Programmer Analyst: Procedure Note Donotuseinterpreter, Image - 10/11/2024 [place] [address] Magnetic Resonance Report Signed Patient: Amada Yanez DMR#: [id number] 46 : 1995Acct:[id number] Age/Sex: 29 / FADM Date: 10/09/24 Loc: HO.MRI Attending Dr: Johnathan Aden MD Ordering Physician: Johnathan Aden MD Date of Service: 10/09/24 Procedure(s): MR shoulder LT wo con Accession Number(s): [id number] cc: Amada Gunn MD; Johnathan Aden MD CLINICAL HISTORY: M25.312 - Other instability, left shoulder MR left shoulder without gadolinium Comparison: OT - MR SHOULDER LT WO CON - 10/09/24 09:57 EDT CR/SR - XR SHOULDER LT MIN 2V - 07/27/24 10:42 EDT Findings: No acute fracture or pathologic bone lesion. Mild periarticular osteophyte formation of the acromioclavicular and glenohumeral joints. Type II acromion without downsloping. No effusion. Mild T2 signal elevation diffusely throughout the supraspinatus and anterior infraspinatus tendons at the humeral insertion site extending to the musculotendinous junction, indicating tendinopathy. The supraspinatus, infraspinatus, subscapularis, and teres minor tendons are intact. No tears of the long head of biceps tendon. No tears of the glenoid labrum. IMPRESSION: 1. Supraspinatus and infraspinatus tendinopathy. No rotator cuff tear. 2. Mild acromioclavicular and glenohumeral joint osteoarthritis. This document has been electronically signed by: Sergey Lay MD on 10/11/2024 16:59:01 Dictated By: Sergey Lay MD Signed By: <Electronically signed by Sergey Lay MD in [place]> 10/11/241658 DD/ 58 TD/TT: 10/11/241658 Lead Programmer Analyst: us [facility] External Provider IMG MRI PROCEDURES Edited Result - Final * Hepatitis C Antibody with Reflex to HCV, RNA, Quantitative, Real-Time PCR (05/25/2024 11:37 AM EST) Hepatitis C Antibody Nonreactive Nonreactive [facility] Comment:Antibodies to HCV no t detected; does not exclude early acuteHCV infection. Blood Venous blood specimen / Unknown 05/25/2024 11:37 AM EST 05/25/2024 1:14 PM EST Amada Kidd MD LAB BLOOD ORDERABLES Final Result Performing Organization Address [facility]/ZIP Co de Phone Number [facility] [address] [place] [phone] * HIV-1/2 Antigen and Antibodies, Fourth Generation, with Reflexes (05/25/2024 11:37 AM EST) Pathologist [facility] HIV AB/AG Nonreactive Nonreactive [facility] Comment:HIV-1 p24 Ag and/or HIV-1/HIV-2 Ab not detected.A test result that is nonreactive does not exclude thepossibility of exposure to or infection with HIV-1 and/orHIV-2. Nonreactive results in this assay for individualswith prior exposure to HIV-1 and/or HIV-2 may be due toantigen and antibody levels that are below the limit ofdetection of this assay.The [employer] HIV Ag/Ab Combo assay result andsupplemental assay results should be interpreted inconjunction with the patient's clinical presentation,history and other laboratory results. If the results areinconsistent with clinical evidence, additional testing issuggested to confirm the result. Blood Venous blood specimen / Unknown 05/25/2024 11:37 AM EST 05/25/2024 1:14 PM EST us Amada Kidd MD LAB BLOOD ORDERABLES Final Result Performing Organization Address City/[facility]/ZIP Co de Phone Number [facility] [address] [place] [phone] from Last 3 Months or Most Recently Relevant to Health Maintenance Insurance [facility] Care Teams Radio Sales Account Executive Relationship Specialty Start Date End Date Amada Gunn MD [address] [place] [phone] PCP - General Internal Medicine 07/09/24
--- OUTSIDE RECORDS SUMMARY | 2024-11-04 08:56 | XMS_ITS | Clinical Summary ---
Author Organization [facility] Address [address] [place] [address] Phone Care Team Providers Care Inspector Mechanical Name Role Phone Pierre Ang MD Primary [...] 100 07/05/2024 12:35 AM EST Temperature 37.4 C (99.3 F) 07/05/2024 12:35 AM EST Respiratory Rate 20 07/05/2024 12:35 AM EST [...] Health Maintenance Results * HIV Screening (05/17/2019) Pathologist [facility] HIV Screening abstracted Historical Provider MD HEALTH MAINTENANCE Final Result * Pap smear (09/26/2017) 09/26/2017 Narrative HISTORICAL TESTING LAB RESULTING AGENCY - 10/01/2017 2:07 PM EDT [id number] THINPREP PAP, IMAGED: NEGATIVE FOR SQUAMOUS INTRAEPITHELIAL LESION AND MALIGNANCY . CARMITA IS PRESENT. ROBERT TANG(ASCP) (CASE ELECTRONICALLY SIGNED 10 01 2017) ADEQUACY: SATISFACTORY. ENDOCERVICAL/TRANSFORMATION ZONE COMPONENT PRESENT. SOURCE: THINPREP PAP HPV IF ASCUS, CERVICAL, IMAGED: CLINICAL INFORMATION: HPV IF DIAGNOSIS OF ASCUS. Z12.4, Z34.01, us Adilene Boston CNM LAB CYTOLOGY ORDERABLES Final Result HISTORICAL TESTING LAB RESULTING AGENCY from Last 3 Months or Most Recently Relevant to Health Maintenance Insurance MEDICAID - [place] Care Teams Inspector Mechanical Relationship Specialty Start Date End Date Pierre Ang MD [address] [place] [address] PCP - General Internal Medicine 09/14/21
== END ==
LOC: HO.CARD 08:48
PROVIDERS: PCP Internal Medicine; Visit Provider Internal Medicine Cardiovascular Disease
DX: R00.2 Palpitations (principal); R07.89 Other chest pain
CPT/HCPCS: 93017; 93225; 93306; 99212

== ENCOUNTER → 2024-11-04 08:50 | Outpatient (BNV) | payer MEDICAID, SELFPAY | PROVIDERS: PCP Internal Medicine; Visit Provider Internal Medicine Cardiovascular Disease | DX: R07.9 Chest pain, unspecified (principal); R00.2 Palpitations; R42 Dizziness and giddiness | CPT/HCPCS: 93016; 93018; 93320; 93325; 93350 ==

== ENCOUNTER 2024-11-04 14:08 | Outpatient (AMB) | payer MEDICAID, SELFPAY ==
[2024-11-04 14:14] VITALS: BMI 20.8
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
== END 2024-11-04 14:44 | disposition home or self-care (01) ==
LOC: HO.HOS 14:09
PROVIDERS: PCP Internal Medicine; Visit Provider Orthopaedic Surgery
DX: M75.42 Impingement syndrome of left shoulder (principal)
CPT/HCPCS: 99213

== ENCOUNTER 2024-11-10 11:24 | Outpatient (AMB) | payer MEDICAID, SELFPAY ==
--- NOTE | 2024-11-10 11:26 | A.OFFVIS_ITS ---
Vital Signs 11/10/24 11:47 Height 5 ft 5 in Weight 125 lb BMI 20.8 Intake Visit Reasons: New Prob- left cub tunnel/elbow Intake Note: Amada 29 yr old right hand dominant female who presents today for left hand cubital tunnel. States symptoms started about 2 years ago and has worsen in the last few months. States this is worse at night time, on and off through out the day and is having pain as well on her medial and lateral aspect of her elbow. She does recall hurting her elbow when she was 10 yrs old, no surgical intervention was needed. States she has locking of her left middle finger randomly at times. EMG done with Dr Whitaker. Allergies penicillin V Allergy (Unknown, Verified 11/10/24 11:55) rash Penicillins (PENICILLINS) Allergy (Unknown, Verified 11/10/24 11:55) RASH HPI HPI New Prob- left cub tunnel/elbow : Details: Amada is a 29 year old right hand dominant woman who presents for a NCS review of her left hand numbness. She complains of numbness in her left middle, ring, & small fingers. Symptoms intermittent, but daily, worse at night. She says this has been present for ~2 years now but has worsened in the last few months. She also complains of occasional painful locking of her left middle finger She says she hurt her elbow at age 10, no treatment was necessary. 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 [facility] Surgical History Hx of section Family History Father No problems noted. 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 Review of Systems Const All systems reviewed & are unremarkable except as noted in HPI and below Physical Exam Vital Signs: BMI result Body Mass Index 20.8 Const General: cooperative, healthy appearing and no acute distress Orientation/consciousness: patient oriented x3 HEENT Head: Yes normocephalic and Yes atraumatic Eyes EOM: EOMs intact bilaterally Resp Effort & Inspection: normal respiratory effort and able to speak in complete sentences Cardio Jugular venous distension: no JVD Skin General skin exam: turgor normal Rashes: no rashes Neuro General: patient oriented x3 Extrem Other: Evaluation of Left Upper Extremity: The patient is alert, oriented, and in no acute distress Neuro: Dense numbness in the middle finger & ulnar nerve distribution. Normal sensation to the thumb & index finger. Patient reports occaisonal numbness over the dorsal radial aspect of her wrist No thenar or intrinsic wasting Good APB muscle belly firing and good finger cross Good finger ABduction & ADduction Vascular: Cap refill brisk ROM: She can make a fist and extend all her digits No locking or catching seen today Skin: No lacerations or abrasions. General: No Ecchymosis. No Erythema or evidence of infection. Nerve Conduction Study: IMPRESSION: Mild left ulnar neuropathy across cubital tunnel. Radha Whitaker MD 07/27/2024 Psych Appearance: grossly normal Affect: normal affect Attitude: cooperative Assessment & Plan Assessment & Plan (1) Cubital tunnel syndrome on left: Code(s): G56.22 - Lesion of ulnar nerve, left upper limb Category: Medical (2) Trigger finger, left middle finger: Code(s): M65.332 - Trigger finger, left middle finger Category: Medical Plan Assessment & Plan: 1. Left cubital tunnel syndrome, mild With dense numbness I educated her about this condition I discussed operative and non-operative treatment options The patient would like to proceed with surgery The risks and benefits of operative treatment were discussed with the patient and the patient wishes to proceed with surgery. These risks include, but are not limited to risk of damage to blood vessels, nerves, tendons, infection, recurrence, incomplete relief of preoperative symptoms, persistent pain, possible need for further surgery and the risks associated with regional blocks and anesthesia. I explained the risks of her sensation not returning, but that surgery is important to maintain muscle function and preserve any sensation possible. She expressed understanding The plan is to take the patient to the operating room sometime in the next few weeks for the following procedures: 1. Left cubital tunnel release , under general All of the preoperative paperwork including the consent was reviewed today. All the patient's questions were answered. The patient understands that they will be contacted by our integrated circuit ic layout designer soon to schedule this procedure She denies Diabetes, blood thinners, asthma, heart, lung, kidney issues 2. Left middle finger trigger finger I educated her about this condition She says this is occasional and is not particularly bothersome at this time We will manage this conservatively at this time. Scribed for Corina Edmondson MD by Zeke Lovell, medical coding specialist, on 11/10/24 at 12:00 PM, EST. Coding Level of Care Code New Pt Level 4 (79202) Diagnoses Cubital tunnel syndrome on left G56.22 Trigger finger, left middle finger M65.332
[2024-11-10 11:47] VITALS: BMI 20.8
--- OUTSIDE RECORDS SUMMARY | 2024-11-10 12:36 | XMS_ITS | Clinical Summary ---
Author Organization [facility] Address [address] [place] [address] Phone Care Team Providers Care Enterprise Analyst Name Role Phone Pierre Ang MD Primary [...] 09/25/2020, 08/25/2020 Influenza Vaccine (#1) 2025 , 06/02/2019, 02/13/2018, Additional history exists Depression [...] 5 Years) and At-Risk Patients (6 to 49 Years) Aged Out No longer eligible based [...] Results * HIV Screening (05/17/2019) Pathologist [facility] HIV Screening abstracted Historical Provider MD HEALTH MAINTENANCE Final Result * Pap smear (09/26/2017) 09/26/2017 Narrative HISTORICAL TESTING LAB RESULTING AGENCY - 10/01/2017 2:07 PM EDT [id number] THINPREP PAP, IMAGED: NEGATIVE FOR SQUAMOUS INTRAEPITHELIAL [...] Relevant to Health Maintenance Insurance MEDICAID - [place] Care Teams Enterprise Analyst Relationship Specialty Start Date End Date Pierre Ang MD [address] [place] [address] PCP - General Internal Medicine 09/14/21
--- OUTSIDE RECORDS SUMMARY | 2024-11-10 12:36 | XMS_ITS | Clinical Summary ---
Author Organization [employer] Address [address] [facility] 7t [place] [address] Care Team Providers Care Compressed Air Pile Driver Operator Name Role Phone Amada Gunn MD [...] Type Department Care Team Description 10/12/2024 Telephone [facility] MEDICINE [address] [place] [address] Amada Gunn MD SEP RECALL 10/09/2024 Orders Only [facility] External Provider, [facility] from Last 3 Months Social History Tobacco [...] Description 01/12/2025 3:30 PM EDT Office Visit [facility] MEDICINE [address] [place] [address] Amada Gunn MD [address] [place] [address] Health Maintenance Due Date Last Done Comments [...] PM EDT Narrative 10/11/2024 5:00 PM EDT [place] [address] Magnetic Resonance Report Signed Patient: Amada Yanez MR#: [id number] 46 : 1995 Acct:[id number] Age/Sex: 29 / F ADM Date: 10/09/24 Loc: HO.MRI Attending Dr: Johnathan Aden MD Ordering Physician: Johnathan Aden MD Date of Service: 10/09/24 Procedure(s): MR shoulder LT wo con Accession Number(s): [id number] cc: Amada Gunn MD; Johnathan Aden MD [...] in OV> 10/11/241658 DD/ 58 TD/TT: 10/11/241658 Parachute Inspector: Procedure Note Donotuseinterpreter, Image - 10/11/2024 [place] [address] Magnetic Resonance Report Signed Patient: Amada Yanez DMR#: [id number] 46 : 1995Acct:[id number] Age/Sex: 29 / FADM Date: 10/09/24 Loc: HO.MRI Attending Dr: Johnathan Aden MD Ordering Physician: Johnathan Aden MD Date of Service: 10/09/24 Procedure(s): MR shoulder LT wo con Accession Number(s): [id number] cc: Amada Gunn MD; Johnathan Aden MD [...] in OV> 10/11/241658 DD/ 58 TD/TT: 10/11/241658 Parachute Inspector: us [facility] External Provider IMG MRI PROCEDURES Edited Result - Final * Hepatitis C Antibody with Reflex to HCV, RNA, Quantitative, Real-Time PCR (05/25/2024 11:37 AM EST) Hepatitis C Antibody Nonreactive Nonreactive [facility] Comment:Antibodies to HCV no t detected; does not exclude early acuteHCV infection. Blood Venous blood specimen / Unknown 05/25/2024 11:37 AM EST 05/25/2024 1:14 PM EST Amada Kidd MD LAB BLOOD ORDERABLES Final Result Performing Organization Address [facility]/ZIP Co de Phone Number [facility] [address] [place] [phone] * HIV-1/2 Antigen and Antibodies, Fourth Generation, with Reflexes (05/25/2024 11:37 AM EST) Pathologist [facility] HIV AB/AG Nonreactive Nonreactive [facility] Comment:HIV-1 p24 Ag and/or HIV-1/HIV-2 Ab not detected.A test result that is nonreactive does not exclude thepossibility of exposure to or infection with HIV-1 and/orHIV-2. Nonreactive results in this assay for individualswith prior exposure to HIV-1 and/or HIV-2 may be due toantigen and antibody levels that are below the limit ofdetection of this assay.The [employer] HIV Ag/Ab Combo assay result andsupplemental assay results should be interpreted inconjunction with the patient's clinical presentation,history and other laboratory results. If the results areinconsistent with clinical evidence, additional testing issuggested to confirm the result. Blood Venous blood specimen / Unknown 05/25/2024 11:37 AM EST 05/25/2024 1:14 PM EST us Amada Kidd MD LAB BLOOD ORDERABLES Final Result Performing Organization Address City/[facility]/ZIP Co de Phone Number [facility] [address] [place] [phone] from Last 3 Months or Most Recently Relevant to Health Maintenance Insurance [facility] STANDARD Care Teams Compressed Air Pile Driver Operator Relationship Specialty Start Date End Date Amada Gunn MD [address] [place] [phone] PCP - General Internal Medicine 07/09/24
== END 2024-11-10 12:09 | disposition home or self-care (01) ==
PROVIDERS: PCP Internal Medicine; Visit Provider Orthopaedic Surgery
DX: G56.22 Lesion of ulnar nerve, left upper limb (principal); M65.332 Trigger finger, left middle finger
CPT/HCPCS: 99204

== ENCOUNTER → 2024-11-10 11:24 | Outpatient (BNVA) | payer MEDICAID, SELFPAY | PROVIDERS: PCP Internal Medicine; Visit Provider Orthopaedic Surgery | DX: G56.22 Lesion of ulnar nerve, left upper limb (principal); M65.332 Trigger finger, left middle finger | CPT/HCPCS: 99202 ==

== ENCOUNTER 2024-11-30 13:42 | Outpatient (AMB) | payer MEDICAID, SELFPAY ==
--- NOTE | 2024-11-30 13:48 | MHC.OFFVIS ---
Vital Signs 11/30/24 13:49 Height 5 ft 5 in Weight 127 lb 13.89 oz BMI 21.3 BP 90/62 Blood Pressure Location Lt brachial Position Sitting Pulse 94 Pulse Source Pulse Oximeter Intake Visit Reasons: s/p ett/ echo/ holter NS Cattle Feeder Required: No Allergies penicillin V Allergy (Unknown, Verified 11/30/24 13:50) rash Penicillins (PENICILLINS) Allergy (Unknown, Verified 11/30/24 13:50) RASH Medication List - Last Reconciled 11/30/24 by Michael Mccarthy NP cholecalciferol (vitamin D3) (Vitamin D3) 25 mcg PO DAILY HPI Comments Details: This is a 29-year-old female patient coming in for a follow-up visit. Patient was previously seen in the office for chest tightness and palpitations and subsequently underwent echo study, Holter, and a stress test. Today, patient is here to review those results and is also requesting preop clearance for nerve impingement repair to her left arm. Today, patient reports feeling well overall and denies any cardiac symptoms of exertional chest pain, shortness of breath, palpitations, dizziness, orthopnea, PND, leg edema, presyncope or syncope. [facility] Surgical History Hx of section Family History Father No problems noted. Mother HTN (hypertension) Diabetes Social History Patient Tobacco Use Status: Never used Tobacco Current occupational status: employed Current occupation: [employer], rt handed Review of Systems ENT Reports dizziness Card Denies chest pain, Denies chest pain at rest, Denies chest pain with activity, Denies rapid heart rate, Denies pedal edema, Denies edema, Denies leg edema, Denies lightheadedness, Denies palpitations, Denies dyspnea, Denies dyspnea on exertion and Denies orthopnea Resp Denies cough, Denies dyspnea and Denies dyspnea on exertion GI Denies hematochezia and Denies change in stool character Musc Denies abnormal gait, Reports limited range of motion, Reports muscle cramps, Denies muscle weakness, Denies numbness, Denies radiating pain into limb, Denies stiffness and Denies tingling Neuro Denies abnormal gait, Reports dizziness, Denies numbness and Denies tingling Endo Denies palpitations Physical Exam Vital Signs: Last Vital Signs Pulse 94 11/30/24 13:49 BP 90/62 11/30/24 13:49 BMI result Body Mass Index 21.3 Const General: cooperative, healthy appearing, comfortable and no acute distress Orientation/consciousness: patient oriented x3 HEENT Head: Yes normal to inspection Neck Neck: Yes normal visual inspection, Yes trachea midline and Yes supple Chest Chest palpation & inspection: normal inspection of the chest Resp Effort & Inspection: normal respiratory effort Auscultation: clear to auscultation bilaterally, no crackles, no rales, no rhonchi and no wheezes Cardio Jugular venous distension: no JVD Palpation: normal PMI Rate: regular rate Rhythm: regular rhythm Heart sounds: S1 normal heart sound present, S2 normal heart sound present, no click, no gallops, no murmurs and no rubs Peripheral pulses: Peripheral pulses 2+ throughout GI Inspection: Yes normal to inspection Palpation (GI): Soft to palpation Auscultation: normal bowel sounds Skin General skin exam: no rashes or lesions noted Neuro General: patient oriented x3 Extrem General: Yes normal to inspection, No no pedal edema and No calf tenderness Psych Appearance: grossly normal Mental Status: mental status grossly normal Speech and movement: Normal speech and movement present Office Procedures EKG Details: EKG today showed normal sinus rhythm with sinus arrhythmia, 77 beats per minute, nonspecific ST-T wave, normal [place], [place]. [address]-[id number], Complete Assessment & Plan Assessment & Plan (1) Chest pain: Code(s): R07.9 - Chest pain, unspecified (2) Preop cardiovascular exam: Code(s): Z01.810 - Encounter for preprocedural cardiovascular examination Plan 11/04/2024-Holter study showed a baseline sinus rhythm with an average heart rate of 71 beats per minute, rare supraventricular and ventricular ectopies. 11/04/2024-echo study showed a normal LV systolic function with an ejection fraction between 65-70% with no wall motion abnormalities. 11/04/2024-patient underwent a stress test with a moderate workload of 10.1 Mets without any chest pain or EKG changes. Given above findings and resolution of symptoms, no further testing indicated at this point. Blood pressure continues to be soft. Advised adequate hydration as patient is only drinking 3 bottles of 16 oz water bottle throughout the day. Also advised being lenient with her salt intake. Advised heart healthy diet, regular exercise, and management of vascular risk factors. Patient can proceed with the upcoming nerve impingement repair to her left arm with the consideration that patient is at a low cardiac risk. Follow-up in the office on an as-needed basis. In the interim, patient will call the office with any concerns or change in symptoms. This note was generated using voice recognition software. While every effort has been made to ensure accuracy and proper returned goods inspector, there may be occasional errors that could affect the content or meaning of the described symptoms. Orders: Orders AMB EKG-In Office Today Z01.810 - Encounter for preprocedural cardiovascular examination Coding Level of Care Code Est Pt Level 3 (87780) Complex EM visit Add On G2211 Diagnoses Chest pain R07.9 Preop cardiovascular exam Z01.810 CPT Codes EKG - CPT: 94566-[id number], Complete ([id number]) Time Spent (min) 29 Comment Time spent in reviewing the chart, test results, assessment, counseling and documentation.
[2024-11-30 13:49] VITALS: BP 90/62; PULSE 94; BMI 21.3
--- OUTSIDE RECORDS SUMMARY | 2024-11-30 14:29 | XMS_ITS | Clinical Summary ---
Author Organization [facility] Address [address] [place] [address] Phone Care Team Providers Care Sales Agent Financial Report Service Name Role Phone Pierre Ang MD Primary [...] COVID-19 Vaccine ( season) 2024 09/25/2020, 08/25/2020 Depression Screening 05/05/2024 Influenza Vaccine (#1) 2025 , 06/02/2019, 02/13/2018, Additional history exists Cholesterol Screening (Lipid Panel) 05/25/2029 05/25/2024 DTaP,Tdap,and [...] Maintenance Results * HIV Screening (05/17/2019) Pathologist [facility] HIV Screening abstracted us Historical Provider MD HEALTH MAINTENANCE Final Result * Pap smear (09/26/2017) 09/26/2017 Narrative HISTORICAL TESTING LAB RESULTING AGENCY - 10/01/2017 2:07 PM EDT [id number] THINPREP PAP, IMAGED: NEGATIVE FOR SQUAMOUS INTRAEPITHELIAL LESION AND MALIGNANCY . CARMITA IS PRESENT. ROBERT TANG(ASCP) (CASE ELECTRONICALLY SIGNED 10 01 2017) ADEQUACY: SATISFACTORY. ENDOCERVICAL/TRANSFORMATION ZONE COMPONENT PRESENT. SOURCE: THINPREP PAP HPV IF ASCUS, CERVICAL, IMAGED: CLINICAL INFORMATION: HPV IF DIAGNOSIS OF ASCUS. Z12.4, Z34.01, Adilene Boston CNM LAB CYTOLOGY ORDERABLES Final Result HISTORICAL TESTING LAB RESULTING AGENCY from Last 3 Months or Most Recently Relevant to Health Maintenance Insurance [place]ID - [place] Care Teams Sales Agent Financial Report Service Relationship Specialty Start Date End Date Pierre Ang MD [address] [place] [address] PCP - General Internal Medicine 09/14/21
--- OUTSIDE RECORDS SUMMARY | 2024-11-30 14:29 | XMS_ITS | Encounter Summary ---
Author Organization [employer] Address [address] [facility] 7t [place] [address] Care Team Providers Care District Engineer Name Role Phone Amada Gunn MD Primary Care Provide r Reason for Visit * Reason Onset Date Comments OCT RECALL 11/29/2024 Encounter Details Date Type Department Care Team ([facility] st Contact Info) Description 11/29/2024 Telephone [facility] MEDICINE [address] [place], [place] [phone] Amada Gunn MD [address] [place] [address] OCT RECALL Social History Tobacco Use Types Packs/Day Years [...] Telephone Encounter - Rocio Jorgensen [place] - 11/29/2024 9:35 AM EDT TC- Patient to schedule an appt (FEB Recall) with F[facility] to call back to sche appt.Mailed recall letter. documented in this encounter Plan of Treatment Not on file documented as of this encounter Visit Diagnoses Not on filedocumented in this encounter Additional Health Concerns Assessment Noted Time PHQ-9 Depression Total Score: 1 05/25/19 10:52 AM EST documented as of this encounter Care Teams District Engineer Relationship Specialty Start Date End Date Amada Gunn MD [address] [place] [address] PCP - General Internal Medicine 07/09/24 documented as of this encounter
== END 2024-11-30 14:15 | disposition home or self-care (01) ==
LOC: HO.HCS 13:43
PROVIDERS: PCP Internal Medicine
DX: R07.9 Chest pain, unspecified (principal); Z01.810 Encounter for preprocedural cardiovascular examination
CPT/HCPCS: 93010; 99213

== ENCOUNTER → 2024-11-30 13:42 | Outpatient (BNVA) | payer MEDICAID, SELFPAY | PROVIDERS: PCP Internal Medicine | DX: Z01.810 Encounter for preprocedural cardiovascular examination (principal); R07.9 Chest pain, unspecified | CPT/HCPCS: 93005; 99212 ==

== ENCOUNTER 2024-12-15 13:22 | Outpatient (AMB) | payer MEDICAID, SELFPAY ==
--- NOTE | 2024-12-15 13:35 | MHC.OFFVIS ---
Vital Signs 12/15/24 13:41 Height 5 ft 5 in Weight 127 lb BMI 21.1 Intake Visit Reasons: Preop LT cubital 12/20/24 AR Intake Note: Amada is a 29 year old right hand dominant female who presents today pre-operatively for discussion of their left cubital tunnel release scheduled for 12/20/[address] Edmondson. Consents signed in office today. Patient reports she is experiencing the same issue on the right side. No EMG on file for right upper extremity. Allergies penicillin V Allergy (Unknown, Verified 12/15/24 13:41) rash Penicillins (PENICILLINS) Allergy (Unknown, Verified 12/15/24 13:41) RASH HPI HPI Preop LT cubital 12/20/24 AR: Details: Amada is a 29 year old right hand dominant female who presents today pre-operatively for discussion of their left cubital tunnel release scheduled for 12/20/[address] Edmondson. Patient states that her symptoms have slightly worsened since previous evaluation, and she would like to proceed with surgery as planned. Consents signed in office today. Patient reports she is experiencing the same issue on the right side. No EMG on file for right upper extremity. PFSH Surgical History Hx of section Family History Father No problems noted. 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 Review of Systems Const All systems reviewed & are unremarkable except as noted in HPI and below Physical Exam Vital Signs: BMI result Body Mass Index 21.1 Const General: cooperative, healthy appearing and no acute distress Orientation/consciousness: patient oriented x3 HEENT Head: Yes normocephalic and Yes atraumatic Eyes EOM: EOMs intact bilaterally Resp Effort & Inspection: normal respiratory effort and able to speak in complete sentences Cardio Jugular venous distension: no JVD Skin General skin exam: turgor normal Rashes: no rashes Neuro General: patient oriented x3 Extrem Other: Evaluation of Left Upper Extremity: The patient is alert, oriented, and in no acute distress Neuro: Dense numbness in the middle finger & ulnar nerve distribution. Normal sensation to the thumb & index finger. Patient reports occaisonal numbness over the dorsal radial aspect of her wrist No thenar or intrinsic wasting Good APB muscle belly firing and good finger cross Good finger ABduction & ADduction Vascular: Cap refill brisk ROM: She can make a fist and extend all her digits No locking or catching seen today Skin: No lacerations or abrasions. General: No Ecchymosis. No Erythema or evidence of infection. Nerve Conduction Study: IMPRESSION: Mild left ulnar neuropathy across cubital tunnel. Radha Whitaker MD 07/27/2024 Psych Appearance: grossly normal Affect: normal affect Attitude: cooperative Assessment & Plan Assessment & Plan (1) Cubital tunnel syndrome on left: Code(s): G56.22 - Lesion of ulnar nerve, left upper limb Category: Medical (2) Trigger finger, left middle finger: Code(s): M65.332 - Trigger finger, left middle finger Category: Medical Plan Assessment & Plan: 1. Left cubital tunnel syndrome, mild With dense numbness I educated her about this condition I discussed operative and non-operative treatment options The patient would like to proceed with surgery The risks and benefits of operative treatment were discussed with the patient and the patient wishes to proceed with surgery. These risks include, but are not limited to risk of damage to blood vessels, nerves, tendons, infection, recurrence, incomplete relief of preoperative symptoms, persistent pain, possible need for further surgery and the risks associated with regional blocks and anesthesia. I explained the risks of her sensation not returning, but that surgery is important to maintain muscle function and preserve any sensation possible. She expressed understanding The plan is to take the patient to the operating room sometime in the next few weeks for the following procedures: 1. Left cubital tunnel release , under general All of the preoperative paperwork including the consent was reviewed today. All the patient's questions were answered. The patient understands that they will be contacted by our plastic surgery technician soon to schedule this procedure She denies Diabetes, blood thinners, asthma, heart, lung, kidney issues Coding Level of Care Code Est Pt Level 4 (95780) Diagnoses Cubital tunnel syndrome on left G56.22 Trigger finger, left middle finger M65.332
[2024-12-15 13:41] VITALS: BMI 21.1
--- OUTSIDE RECORDS SUMMARY | 2024-12-15 13:48 | XMS_ITS | Clinical Summary ---
Author Organization [facility] Address [address] [place] [address] Phone Care Team Providers Care Composition Teacher Name Role Phone Pierre Ang MD Primary Care Provider [phone] Allergies Active Allergy Reactions Criticality Noted Date [...] Results * HIV Screening (05/17/2019) Pathologist [facility] HIV Screening abstracted us Historical Provider MD HEALTH MAINTENANCE Final Result * Pap smear (09/26/2017) 09/26/2017 Narrative HISTORICAL TESTING LAB RESULTING AGENCY - 10/01/2017 2:07 PM EDT [id number] THINPREP PAP, IMAGED: NEGATIVE FOR SQUAMOUS INTRAEPITHELIAL [...] Relevant to Health Maintenance Insurance MEDICAID - [place] Care Teams Composition Teacher Relationship Specialty Start Date End Date Pierre Ang MD [address] [place] [address] PCP - General Internal Medicine 09/14/21
--- OUTSIDE RECORDS SUMMARY | 2024-12-15 13:48 | XMS_ITS | Clinical Summary ---
Author Organization [employer] Address [address] [facility] 7t [place] [address] Care Team Providers Care Vocational Nurse Lvn Name Role Phone Amada Gunn MD Primary [...] Encounters Date Type Department Care Team Description 11/29/2024 Telephone [facility] MEDIC[facility] [address] [place] [address] Amada Gunn MD OCT RECALL 10/12/2024 Telephone [facility] MEDICINE [address] [place] [address] Amada Gunn MD SEP RECALL 10/09/2024 Orders Only [facility] External Provider, [facility] from Last 3 Months Social History [...] PM EDT Narrative 10/11/2024 5:00 PM EDT [address] [address] Magnetic Resonance Report Signed Patient: Amada Yanez MR#: [id number] 46 : 1995 Acct:[id number] Age/Sex: 29 / F ADM Date: 10/09/24 Loc: HO.MRI Attending Dr: Johnathan Aden MD Ordering Physician: Johnathan Aden MD Date of Service: 10/09/24 Procedure(s): MR shoulder LT wo con Accession Number(s): [id number] cc: Amada Gunn MD; Johnathan Aden MD [...] in OV> 10/11/241658 DD/ 58 TD/TT: 10/11/241658 Client Coordinator: Procedure Note Donotuseinterpreter, Image - 10/11/[address] [address] Magnetic Resonance Report Signed Patient: Amada Yanez DMR#: [id number] 46 : 1995Acct:[id number] Age/Sex: 29 / FADM Date: 10/09/24 Loc: HO.MRI Attending Dr: Johnathan Aden MD Ordering Physician: Johnathan Aden MD Date of Service: 10/09/24 Procedure(s): MR shoulder LT wo con Accession Number(s): [id number] cc: Amada Gunn MD; Johnathan Aden MD [...] in OV> 10/11/241658 DD/ 58 TD/TT: 10/11/241658 Client Coordinator: [facility] External Provider IMG MRI PROCEDURES Edited Result - Final * Hepatitis C Antibody with Reflex to HCV, RNA, Quantitative, Real-Time PCR (05/25/2024 11:37 AM EST) Hepatitis C Antibody Nonreactive Nonreactive [facility] Comment:Antibodies to HCV no t detected; does not exclude early acuteHCV infection. Blood Venous blood specimen / Unknown 05/25/2024 11:37 AM EST 05/25/2024 1:14 PM EST us Amada Kidd MD LAB BLOOD ORDERABLES Final Result Performing Organization Address [facility]/ZIP Co de Phone Number [facility] [address] [place] [phone] * HIV-1/2 Antigen and Antibodies, Fourth Generation, with Reflexes (05/25/2024 11:37 AM EST) Pathologist [facility] HIV AB/AG Nonreactive Nonreactive [facility] Comment:HIV-1 p24 Ag and/or HIV-1/HIV-2 Ab not detected.A test result that is nonreactive does not exclude thepossibility of exposure to or infection with HIV-1 and/orHIV-2. Nonreactive results in this assay for individualswith prior exposure to HIV-1 and/or HIV-2 may be due toantigen and antibody levels that are below the limit ofdetection of this assay.The [employer] HIV Ag/Ab Combo assay result andsupplemental assay results should be interpreted inconjunction with the patient's clinical presentation,history and other laboratory results. If the results areinconsistent with clinical evidence, additional testing issuggested to confirm the result. Blood Venous blood specimen / Unknown 05/25/2024 11:37 AM EST 05/25/2024 1:14 PM EST us Amada Kidd MD LAB BLOOD ORDERABLES Final Result Performing Organization Address [facility]/ZIP Co de Phone Number [facility] [address] [place] [phone] from Last 3 Months or Most Recently Relevant to Health Maintenance Insurance [facility] ST[facility] Care Teams Vocational Nurse Lvn Relationship Specialty Start Date End Date Amada Gunn MD [address] [place] [phone] PCP - General Internal Medicine 07/09/24
== END 2024-12-15 13:48 | disposition home or self-care (01) ==
LOC: HO.HOS 13:23
PROVIDERS: PCP Internal Medicine
DX: G56.22 Lesion of ulnar nerve, left upper limb (principal); M65.332 Trigger finger, left middle finger
CPT/HCPCS: 99024

== ENCOUNTER → 2024-12-15 13:22 | Outpatient (BNVA) | payer MEDICAID, SELFPAY | PROVIDERS: PCP Internal Medicine | DX: G56.22 Lesion of ulnar nerve, left upper limb (principal); M65.332 Trigger finger, left middle finger | CPT/HCPCS: 99212 ==

== ENCOUNTER 2024-12-20 05:49 | Day surgery (SDC) | payer MEDICAID, SELFPAY ==
--- OUTSIDE RECORDS SUMMARY | 2024-11-11 07:49 | XMS_ITS | Clinical Summary ---
Author Organization [employer] Address [address] [facility] 7t [place] [address] Care Team Providers Care Electrical Assembly Technician Name Role Phone Amada Gunn MD Primary [...] Type Department Care Team Description 10/12/2024 Telephone [facility] MEDICINE [address] [place] [address] Amada Gunn MD SEP RECALL 10/09/2024 Orders Only [facility] External Provider, [facility] from Last 3 Months Social History [...] Description 01/12/2025 3:30 PM EDT Office Visit [facility] MEDICINE [address] [place] [address] Amada Gunn MD [address] [place] [address] Health Maintenance Due Date Last Done Comments [...] PM EDT Narrative 10/11/2024 5:00 PM EDT [place] [address] Magnetic Resonance Report Signed Patient: Amada Yanez MR#: [id number] 46 : 1995 Acct:[id number] Age/Sex: 29 / F ADM Date: 10/09/24 Loc: HO.MRI Attending Dr: Johnathan Aden MD Ordering Physician: Johnathan Aden MD Date of Service: 10/09/24 Procedure(s): MR shoulder LT wo con Accession Number(s): [id number] cc: Amada Gunn MD; Johnathan Aden MD [...] in OV> 10/11/241658 DD/ 58 TD/TT: 10/11/241658 Lab Clerk: Procedure Note Donotuseinterpreter, Image - 10/11/2024 [place] [address] Magnetic Resonance Report Signed Patient: Amada Yanez DMR#: [id number] 46 : 1995Acct:[id number] Age/Sex: 29 / FADM Date: 10/09/24 Loc: HO.MRI Attending Dr: Johnathan Aden MD Ordering Physician: Johnathan Aden MD Date of Service: 10/09/24 Procedure(s): MR shoulder LT wo con Accession Number(s): [id number] cc: Amada Gunn MD; Johnathan Aden MD [...] in OV> 10/11/241658 DD/ 58 TD/TT: 10/11/241658 Lab Clerk: us [facility] External Provider IMG MRI PROCEDURES Edited Result - Final * Hepatitis C Antibody with Reflex to HCV, RNA, Quantitative, Real-Time PCR (05/25/2024 11:37 AM EST) Hepatitis C Antibody Nonreactive Nonreactive [facility] Comment:Antibodies to HCV no t detected; does not exclude early acuteHCV infection. Blood Venous blood specimen / Unknown 05/25/2024 11:37 AM EST 05/25/2024 1:14 PM EST Amada Kidd MD LAB BLOOD ORDERABLES Final Result Performing Organization Address [facility]/ZIP Co de Phone Number [facility] [address] [place] [phone] * HIV-1/2 Antigen and Antibodies, Fourth Generation, with Reflexes (05/25/2024 11:37 AM EST) Pathologist [facility] HIV AB/AG Nonreactive Nonreactive [facility] Comment:HIV-1 p24 Ag and/or HIV-1/HIV-2 Ab not detected.A test result that is nonreactive does not exclude thepossibility of exposure to or infection with HIV-1 and/orHIV-2. Nonreactive results in this assay for individualswith prior exposure to HIV-1 and/or HIV-2 may be due toantigen and antibody levels that are below the limit ofdetection of this assay.The [employer] HIV Ag/Ab Combo assay result andsupplemental assay results should be interpreted inconjunction with the patient's clinical presentation,history and other laboratory results. If the results areinconsistent with clinical evidence, additional testing issuggested to confirm the result. Blood Venous blood specimen / Unknown 05/25/2024 11:37 AM EST 05/25/2024 1:14 PM EST us Amada Kidd MD LAB BLOOD ORDERABLES Final Result Performing Organization Address City/[facility]/ZIP Co de Phone Number [facility] [address] [place] [phone] from Last 3 Months or Most Recently Relevant to Health Maintenance Insurance [facility] STANDARD Care Teams Electrical Assembly Technician Relationship Specialty Start Date End Date Amada Gunn MD [address] [place] [phone] PCP - General Internal Medicine 07/09/24
--- OUTSIDE RECORDS SUMMARY | 2024-11-11 07:49 | XMS_ITS | Clinical Summary ---
Author Organization [facility] Address [address] [place] [address] Phone Care Team Providers Care Composition Floor Layer Name Role Phone Pierre Ang MD Primary [...] Maintenance Results * HIV Screening (05/17/2019) Pathologist [facility] HIV Screening abstracted Historical Provider MD HEALTH MAINTENANCE Final Result * Pap smear (09/26/2017) 09/26/2017 Narrative HISTORICAL TESTING LAB RESULTING AGENCY - 10/01/2017 2:07 PM EDT [id number] THINPREP PAP, IMAGED: NEGATIVE FOR SQUAMOUS INTRAEPITHELIAL [...] Relevant to Health Maintenance Insurance MEDICAID - [place] Care Teams Composition Floor Layer Relationship Specialty Start Date End Date Pierre Ang MD [address] [place] [address] PCP - General Internal Medicine 09/14/21
[2024-12-16 10:49] VITALS: BMI 21.1
--- NOTE | 2024-12-16 15:25 | HO.ANESPROP2 ---
Documented by User: Sophia Pinzon NP 12/16/24 15:27 HPI - Anesthesia Eval Consult details Narrative: 29yo F for Cubital Tunnel Release Cardiac optimized. Eval'd by [facility] for palpitations. Testing WNL and symptoms resolved per 11/2024 office visit PMFSH Active Problems Active Problems: All Active Problems Trigger finger, left middle finger (Acute) Cubital tunnel syndrome on left (Acute) Impingement syndrome of left shoulder (Acute) Rotator cuff insufficiency of left shoulder (Acute) Past Medical History Medical History Palpitations Family History Family History Father No problems noted. Mother HTN (hypertension) Diabetes Surgical History Surgical History History of tubal ligation Hx of section Social History Social History Are you a primary acute care clinical nurse specialist to a significant other at home: No Do you presently have visiting nurse or other home services: No Patient Tobacco Use Status: Never used Tobacco Second Hand Smoke Exposure: No Use of substances other than those prescribed or required for medical reasons: No Have you been hit, kicked, punched, or otherwise hurt by someone within the past year? If so, by whom?: No Are you DNR?: No Advance Directives: No Advance Directives Information Provided: Yes Advance Directives on File: No Patient : No FDLMP: hx TL : No Poor oral hygiene: No Current occupational status: employed Current occupation: [employer] Allergies Allergy/AdvReac Type Severity Reaction Status Date / Time Penicillins (PENICILLINS) Allergy Intermediate RASH Verified 12/16/24 10:46 Home Medications ?Medication ?Instructions ?Recorded ?Confirmed ?Last Taken ?Type cholecalciferol (vitamin D3) 25 25 mcg PO DAILY 11/10/24 12/16/24 12/19/24 History mcg (1,000 unit) tablet (Vitamin D3) Exam Height,Weight and Vital Signs: Height 5 ft 5 in Weight 57.606 kg Narrative Narrative: EKG 11/2024 Details: EKG today showed normal sinus rhythm with sinus arrhythmia, 77 beats per minute, nonspecific ST-T wave, normal SD, corrected QT. 11/04/2024-Holter study showed a baseline sinus rhythm with an average heart rate of 71 beats per minute, rare supraventricular and ventricular ectopies. 11/04/2024-echo study showed a normal LV systolic function with an ejection fraction between 65-70% with no wall motion abnormalities. 11/04/2024-patient underwent a stress test with a moderate workload of 10.1 Mets without any chest pain or EKG changes. Assessment and Plan Assessment Anesthesia Assessment: Chart Reviewed Documented by User: Elfego Vick MD 12/20/24 07:28 [facility] Past Medical History Medical History Palpitations Functional capacity: independent ambulation Family History Family History Father No problems noted. Mother HTN (hypertension) Diabetes Family history of problems with anesthesia: No Surgical History Surgical History History of tubal ligation Hx of section History of Problems with Anesthesia: No Social History Social History Are you a primary acute care clinical nurse specialist to a significant other at home: No Do you presently have visiting nurse or other home services: No Patient Tobacco Use Status: Never used Tobacco Second Hand Smoke Exposure: No Use of substances other than those prescribed or required for medical reasons: No Have you been hit, kicked, punched, or otherwise hurt by someone within the past year? If so, by whom?: No Are you DNR?: No Advance Directives: No Advance Directives Information Provided: Yes Advance Directives on File: No Patient : No FDLMP: hx TL : No Poor oral hygiene: No Current occupational status: employed Current occupation: [employer] Allergies Allergy/AdvReac Type Severity Reaction Status Date / Time Penicillins (PENICILLINS) Allergy Intermediate RASH Verified 12/16/24 10:46 Home Medications ?Medication ?Instructions ?Recorded ?Confirmed ?Last Taken ?Type cholecalciferol (vitamin D3) 25 25 mcg PO DAILY 11/10/24 12/16/24 12/19/24 History mcg (1,000 unit) tablet (Vitamin D3) Exam Exam Date and Time: 12/20/2024 Airway Mallampati Class: II Loose/Missing/Broken Teeth: No Heart: rrr Lungs: cta Other: normal Assessment and Plan Assessment Anesthesia Assessment: Anesthesia Plan Discussed Final Anesthetic Review Family History of Problems with Anesthesia: No History of Problems with Anesthesia: No NPO: Yes ASA Class: II Final Preanesthetic Review: No Changes in Pt Med Stat, Meds/Allgs Chart Reviewed, Consent Obtained/Reviewed and Anes Risks/Benef Reviewed Patient Risk: Low Procedure Risk: Low Anesthetic Plan Anesthetic Plan: GA Disposition: Standard PACU
[2024-12-20] VITALS (7 sets, daily range): BP systolic 101–125; BP diastolic 53–88; PULSE 60–100; RESP 15–20; TEMP 36.2–36.4; O2SAT 99–100; BMI 21.1
--- NOTE | 2024-12-20 06:24 | PC.NURSE ---
patient has past surgical history of tubal ligation. Urine order cancelled.
[2024-12-20] MEDS: Lactated Ringers 1,000 ML 100 ML IVCONT (06:35)
--- NOTE | 2024-12-20 07:39 | MHC.SHP ---
Pre-Procedural Eval Section A - 24 Hr Update-Section A only Date of Service: 12/20/24 The patient is an INPATIENT: No Changes since office visit: No Cold of Flu in the past 2 weeks, No New Medical Problems, No Changes in Medication and No Patient answered all questions The patient has been examined within 24 hours of the surgical procedure. The History & Physical has been completed within 30 days and I have reviewed it.: Yes Section B - Complete if H&P > 30 days Chief Complaint: Lesion of ulnar nerve, left upper limb Allergies: Allergies Allergy/AdvReac Type Severity Reaction Status Date / Time Penicillins (PENICILLINS) Allergy Intermediate RASH Verified 12/16/24 10:46 Plan I have reviewed the history and physical and performed a pertinent physical examination on my patient. No changes have occurred unless specified. Time Spent With Patient Time: Total time managing care of this patient today ____ minutes.
--- NOTE | 2024-12-20 07:40 | W.PM.OPN ---
Operative Note Operative Note Date of Service: 12/20/24 Narrative: Operative Note Narrative: Preop diagnosis: 1. Left Cubital tunnel syndrome Postop diagnosis: Same Procedure: 1. Left Cubital Tunnel Release Surgeon: Corina Edmondson MD X Ray Developing Machine Operator: None Anesthesia: General Anesthesia Findings: Thickening and fibrosis about the ulnar nerve at the cubital tunnel Of note, we appreciated a mass on the left side of her neck. Implants: none Tourniquet time: 14 minutes EBL: 5.0 ml Specimen: none Drains: None Complications: None Disposition: Brought to the recovery room in stable condition Plan: Follow-up in 10-14 days for wound check, and suture removal We have also talked to the patient about seeing General surgery about the mass on the left side of her neck. Indications: The patient is 29 years old with left cubital tunnel syndrome . The risks and benefits of operative treatment, including but not limited to risk of damage to blood vessels, nerves, tendons, infection, recurrence, persistent pain or numbness, incomplete resolution of preoperative symptoms, or need for further surgery were discussed with the patient and they wished to proceed with surgery. Procedure: Once consent was obtained patient was brought back to the operating suite and placed in the operating table in a supine position. Perioperative antibiotics and anesthesia was administered by the anesthesia team. The limb was prepped and draped in a standard surgical fashion, and a sterile tourniquet applied to the proximal aspect of the left upper extremity. The limb was elevated exsanguinated with Esmarch bandage and the tourniquet inflated to 250 mm of mercury for a total tourniquet time of 14 minutes. A 6 cm gently curved but longitudinally oriented incision was made centered over the cubital tunnel of the left upper extremity. Incision was made through the skin to the subcutaneous tissues using a # 15 Blade. I then dissected down to the level of the medial epicondyle and the cubital tunnel using tenotomy scissors. Care was taken to protect the medial antebrachial cutaneous nerve. The ulnar nerve was identified just posterior to the medial intermuscular septum. The ulnar nerve was released in a proximal to distal direction using tenotomy in iris scissors while directly visualizing and protecting the ulnar nerve. Thickening and fibrosis was appreciated about the ulnar nerve as it passed through the cubital tunnel. The ulnar nerve was assessed as I passed the elbow through full flexion and extension and was found to remain stable within its groove. At this point the tourniquet was deflated and hemostasis obtained with a brief period of local pressure and bipolar electrocautery. The wound was copiously irrigated with normal saline. The subcutaneous layer was closed with 4-0 Vicryl suture, and the skin edges were reapproximated with a running 4-0 Monocryl suture for subcuticular closure. The wound was infiltrated with some 1% lidocaine with epinephrine for postop pain control and sterile dressings were applied. The patient appears to have tolerated the procedure well and with no complications. All digits were well vascularized at the conclusion of the case.
== END 2024-12-20 11:02 | disposition home or self-care (01) ==
PROVIDERS: PCP Internal Medicine; Visit Provider Orthopaedic Surgery
PROC: (CPT 64718; principal; 2024-12-20 07:30)
DX: G56.22 Lesion of ulnar nerve, left upper limb (principal); R20.0 Anesthesia of skin; R00.2 Palpitations; Z79.899 Other long term (current) drug therapy; Z88.0 Allergy status to penicillin; Z98.51 Tubal ligation status
CPT/HCPCS: 64718; J0131; J0690; J1100; J2003; J2004; J2405; J2704; J3010

== ENCOUNTER → 2024-12-20 05:49 | Outpatient (BNV) | payer MEDICAID, SELFPAY | PROVIDERS: PCP Internal Medicine; Visit Provider Orthopaedic Surgery | DX: G56.22 Lesion of ulnar nerve, left upper limb (principal) | CPT/HCPCS: 64718 ==

== ENCOUNTER 2024-12-29 09:34 | Outpatient (AMB) | payer MEDICAID, SELFPAY ==
--- NOTE | 2024-12-29 09:37 | A.OFFVIS_ITS ---
Vital Signs 12/29/24 09:40 Height 5 ft 5 in Weight 127 lb BMI 21.1 Intake Visit Reasons: OV-Impingement syndrome of left shoulder Intake Note: Amada is a 29 year old female who presents with complaints of progressively worsening left shoulder pain and stiffness. She describes her pain as sharp in nature. Most of the pain is along the lateral and superior aspects of her shoulder. Her symptoms have gotten worse over the last year. She has failed the last 6 weeks of conservative treatment which has included Tylenol, ibuprofen, gabapentin, physical therapy exercises and a home exercise program. The patient reports difficulty lifting her left hand above shoulder height. Allergies Penicillins (PENICILLINS) Allergy (Intermediate, Verified 12/29/24 09:41) RASH Medication List - Last Reconciled 12/29/24 by Johnathan Aden MD cholecalciferol (vitamin D3) (Vitamin D3) 25 mcg PO DAILY gabapentin mg PO ibuprofen 800 mg PO Q8H PRN PFSH Medical History Palpitations Surgical History History of tubal ligation Hx of section Family History Father No problems noted. Mother HTN (hypertension) Diabetes Rheumatoid arthritis Social History Are you a primary ambulatory care coordinator to a significant other at home: No Do you presently have visiting nurse or other home services: No Patient Tobacco Use Status: Never used Tobacco Second Hand Smoke Exposure: No Current occupational status: employed Current occupation: [employer], rt handed Physical Exam Vital Signs: BMI result Body Mass Index 21.1 Const Other: Well-nourished well-developed very friendly female awake alert and oriented x3 in no acute distress Extrem Other: Left shoulder examination shows decreased active and passive range of motion when compared to her right shoulder, 4+ out of 5 strength with supraspinatus testing, positive impingement signs, tenderness over her acromioclavicular joint, no instability Results Reviewed Results Reviewed: MRI of the patient's left shoulder show severe acromioclavicular joint narrowing, a type 2 acromion, signal change within the supraspinatus tendon most likely due to adhesive capsulitis Assessment & Plan Assessment & Plan (1) Impingement syndrome of left shoulder: Code(s): M75.42 - Impingement syndrome of left shoulder Category: Medical (2) Family history of rheumatoid arthritis: Code(s): Z82.61 - Family history of arthritis Category: Medical (3) Joint pain: Code(s): M25.50 - Pain in unspecified joint Category: Medical Plan Ms. Yanez presents with progressively worsening left shoulder pain and stiffness due to impingement syndrome and adhesive capsulitis as well as acromioclavicular joint arthritis. I had a lengthy discussion with the patient regarding the treatment options. At this point she appears to be failing continued non operative treatments. The risks and benefits of left shoulder surgery were discussed at length with the patient. The patient is considering undergoing surgery later this year. She will contact my office to pick a davis rgery date if she chooses to do so. Surgery will involve left shoulder arthroscopic distal clavicle excision, left shoulder arthroscopic acromioplasty, left shoulder arthroscopic capsular release and left shoulder manipulation under anesthesia. I will also refer her to the Rheumatology Department for further evaluation of diffuse joint pains and family history of rheumatoid arthritis. Feel free to call me at any time should questions regarding her orthopedic management arise. I spent 21 minutes in reviewing the patient's records and imaging studies, seeing the patient and documenting in the medical record. Orders: Referrals Rheumatology Referral M25.50 - Pain in unspecified joint, Z82.61 - Family history of arthritis Coding Level of Care Code Est Pt Level 3 (99322) Complex EM visit Add On G2211 Diagnoses Impingement syndrome of left shoulder M75.42 Family history of rheumatoid arthritis Z82.61 Joint pain M25.50
[2024-12-29 09:40] VITALS: BMI 21.1
--- OUTSIDE RECORDS SUMMARY | 2024-12-29 10:13 | XMS_ITS | Clinical Summary ---
Author Organization [facility] Address [address] [place] [address] Phone Care Team Providers Care Laboratory Technician Name Role Phone Pierre Ang MD [...] Maintenance Results * HIV Screening (05/17/2019) Pathologist [facility] HIV Screening abstracted us Historical Provider MD HEALTH MAINTENANCE Final Result * Pap smear (09/26/2017) 09/26/2017 Narrative HISTORICAL TESTING LAB RESULTING AGENCY - 10/01/2017 2:07 PM EDT [id number] THINPREP PAP, IMAGED: NEGATIVE FOR SQUAMOUS INTRAEPITHELIAL [...] Relevant to Health Maintenance Insurance MEDICAID - [place] Care Teams Laboratory Technician Relationship Specialty Start Date End Date Pierre Ang MD [address] [place] [address] PCP - General Internal Medicine 09/14/21
--- OUTSIDE RECORDS SUMMARY | 2024-12-29 10:13 | XMS_ITS | Clinical Summary ---
Author Organization [employer] Address [address] [facility] [address] [place] [address] Care Team Providers Care Photography Coordinator Name Role Phone Amada Gunn MD Primary [...] Encounters Date Type Department Care Team Description 12/23/2024 Telephone [facility] MEDICINE [address] [place] [address] Amada Gunn MD No Show 12/21/2024 Telephone [facility] PEDS [address] [place] [address] Amada Gunn MD Chart Prep 12/21/2024 Travel 12/21/2024 Telephone [facility] [address] [place] [address] Amada Gunn MD Referral 11/29/2024 Telephone [facility] MEDICINE [address] [place] [address] Amada Gunn MD OCT RECALL 10/12/2024 Telephone [facility] MEDICINE [address] [place] [address] Amada Gunn MD SEP RECALL 10/09/2024 Orders Only [facility] External Provider, [facility] from Last 3 Months Social History [...] 2024 09/25/2020, 08/25/2020 Influenza Vaccine (#1) 2025 3, 03/19/2023, 06/02/2019, Additional history exists Depression Screening [...] topic Meningococcal Vaccine Aged Out No issa ercik eligible based on patient's age to complete [...] PM EDT Narrative 10/11/2024 5:00 PM EDT [place] [address] Magnetic Resonance Report Signed Patient: Amada Yanez MR#: [id number] 46 : 1995 Acct:[id number] Age/Sex: 29 / F ADM Date: 10/09/24 Loc: HO.MRI Attending Dr: Johnathan Aden MD Ordering Physician: Johnathan Aden MD Date of Service: 10/09/24 Procedure(s): MR shoulder LT wo con Accession Number(s): [id number] cc: Amada Gunn MD; Johnathan Aden MD [...] in OV> 10/11/241658 DD/ 58 TD/TT: 10/11/241658 Recreation Supervisor: Procedure Note Donotuseinterpreter, Image - 10/11/2024 [place] [address] Magnetic Resonance Report Signed Patient: Amada Yanez DMR#: [id number] 45 : 1995Acct:[id number] Age/Sex: Date: 10/09/24 Loc: HO.MRI Attending Dr: Johnathan Aden MD Ordering Physician: Johnathan Aden MD Date of Service: 10/09/24 Procedure(s): MR shoulder LT wo con Accession Number(s): [id number] cc: Amada uGnn MD; Johnathan Aden MD [...] Lay MD Signed By: <Electronically signed by Segrey Lay MD in OV> 10/11/241658 DD/ 58 TD/TT: 10/11/241658 Recreation Supervisor: [facility] External Provider IMG MRI PROCEDURES Edited Result - Final * Hepatitis C Antibody with Reflex to HCV, RNA, Quantitative, Real-Time PCR (05/25/2024 11:37 AM EST) Hepatitis C Antibody Nonreactive Nonreactive [facility] Comment:Antibodies to HCV no t detected; does not exclude early acuteHCV infection. Blood Venous blood specimen / Unknown 05/25/2024 11:37 AM EST 05/25/2024 1:14 PM EST Amada Kidd MD LAB BLOOD ORDERABLES Final Result [facility] [address] [place] [phone] * HIV-1/2 Antigen and Antibodies, Fourth Generation, with Reflexes (05/25/2024 11:37 AM EST) HIV AB/AG Nonreactive Nonreactive [facility] Comment:HIV-1 p24 Ag and/or HIV-1/HIV-2 Ab not detected.A test result that is nonreactive does not exclude thepossibility of exposure to or infection with HIV-1 and/orHIV-2. Nonreactive results in this assay for individualswith prior exposure to HIV-1 and/or HIV-2 may be due toantigen and antibody levels that are below the limit ofdetection of this assay.The [employer] [place] [employer] HIV Ag/Ab Combo assay result andsupplemental assay results should be interpreted inconjunction with the patient's clinical presentation,history and other laboratory results. If the results areinconsistent with clinical evidence, additional testing issuggested to confirm the result. Blood Venous blood specimen / Unknown 05/25/2024 11:37 AM EST 05/25/2024 1:14 PM EST Amada Kidd MD LAB BLOOD ORDERABLES Final Result [facility] [address] [place] [phone] [phone] from Last 3 Months or Most Recently Relevant to Health Maintenance Insurance [facility] STANDARD Care Teams Photography Coordinator Relationship Specialty Start Date End Date Amada Gunn MD [address] [place] [phone] PCP - General Internal Medicine 07/09/24
== END 2024-12-29 10:05 | disposition home or self-care (01) ==
LOC: HO.HOS 09:35
PROVIDERS: PCP Internal Medicine; Visit Provider Orthopaedic Surgery
DX: M75.42 Impingement syndrome of left shoulder (principal); Z82.61 Family history of arthritis; M25.50 Pain in unspecified joint
CPT/HCPCS: 99213

== ENCOUNTER → 2024-12-29 09:34 | Outpatient (BNVA) | payer MEDICAID, SELFPAY | PROVIDERS: PCP Internal Medicine; Visit Provider Orthopaedic Surgery | DX: M75.42 Impingement syndrome of left shoulder (principal); M25.50 Pain in unspecified joint; Z82.61 Family history of arthritis | CPT/HCPCS: 99212 ==

== ENCOUNTER 2025-01-04 14:08 | Outpatient (AMB) | payer MEDICAID, SELFPAY ==
--- NOTE | 2025-01-04 14:10 | MHC.OFFVIS ---
Vital Signs 01/04/25 14:18 Height 5 ft 5 in Weight 127 lb BMI 21.1 Intake Visit Reasons: PO LT cubital 12/20/24 AR Intake Note: Amada is a 29 year old right hand dominant female who presents today post-operatively status post Left Cubital Tunnel Release performed by Dr. Edmondson on 12/1824. Patient reports her left forearm has been numb, from the middle of the forearm to the mid upper arm. She states the numbness has not gone away since her surgery. She is no longer taking any pain medications. Sutures were removed and steri strips applied. Allergies Penicillins (PENICILLINS) Allergy (Intermediate, Verified 01/04/25 14:18) RASH HPI HPI PO LT cubital 12/20/24 AR: Details: Amada is a 29 year old right hand dominant female who presents today post-operatively status post Left Cubital Tunnel Release performed by Dr. Edmondson on 12/1824. Patient reports her left forearm has been numb, from the middle of the forearm to the mid upper arm in the ulnar aspect around the area of the incision. She states the numbness in this area has not gone away since her surgery, however the numbness and tingling in her left hand has resolved completely since surgery. She is no longer taking any pain medications. Sutures were removed and steri strips applied. [facility] Medical History Palpitations Surgical History History of tubal ligation Hx of section Family History Father No problems noted. 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 Review of Systems Const All systems reviewed & are unremarkable except as noted in HPI and below Physical Exam Vital Signs: BMI result Body Mass Index 21.1 Const General: cooperative, healthy appearing and no acute distress Orientation/consciousness: patient oriented x3 HEENT Head: Yes normocephalic and Yes atraumatic Eyes EOM: EOMs intact bilaterally Resp Effort & Inspection: normal respiratory effort and able to speak in complete sentences Cardio Jugular venous distension: no JVD Skin General skin exam: turgor normal Rashes: no rashes Neuro General: patient oriented x3 Extrem Other: Evaluation of Left Upper Extremity: The patient is alert, oriented, and in no acute distress Neuro: Normal sensation of the tips of all digits of the left hand in the office today Diminished sensation in the areas surrounding the incision in the ulnar aspect of the left elbow Good APB muscle belly firing and good finger cross Good finger ABduction & ADduction Vascular: Cap refill brisk ROM: She can make a fist and extend all her digits No locking or catching seen today Skin: Well approximated and well healing incision site noted on the ulnar aspect of the left elbow No lacerations or abrasions. General: No Ecchymosis. No Erythema or evidence of infection. Psych Appearance: grossly normal Affect: normal affect Attitude: cooperative Assessment & Plan Assessment & Plan (1) Cubital tunnel syndrome on left: Code(s): G56.22 - Lesion of ulnar nerve, left upper limb Category: Medical Plan 1. Status post left cubital tunnel release DOS 12/20/2024 With good symptom resolution postoperatively Patient appears to be recovering well from her surgery Patient is educated about the typical recovery course No under water for 1 more week, 2 lb weight limit for 2 more weeks Patient is educated that unfortunately, loss of sensation around the incision site is a risk with the surgery, and it may or may not heal with time Patient understands this in his amenable to this Patient will require no further acute follow-up with us, as she appears to be recovering quite well Patient is amenable to this plan \follow-up as needed Coding Level of Care Code Global (13445) Diagnoses Cubital tunnel syndrome on left G56.22
[2025-01-04 14:18] VITALS: BMI 21.1
--- OUTSIDE RECORDS SUMMARY | 2025-01-04 15:22 | XMS_ITS | Clinical Summary ---
Author Organization [facility] Address [address] [facility] 7t [place] [address] Care Team Providers Care Business Database Analyst Name Role Phone Amada Gunn MD Primary [...] Type Department Care Team Description 12/23/2024 Telephone [facility] MEDICINE [address] [place] [address] Amada Gunn MD No Show 12/21/2024 Telephone [facility] CHC MED & PEDS [address] [place] [address] Amada Gunn MD Chart Prep 12/21/2024 Travel 12/21/2024 Telephone [facility] [address] [place] [address] Amaad Gunn MD Referral 11/29/2024 Telephone [facility] MEDICINE [address] [place] [address] Amada Gunn MD OCT RECALL 10/12/2024 Telephone [facility] MEDICINE [address] [place] [address] Amada Gunn MD SEP RECALL 10/09/2024 Orders Only [facility] External Provider, [facility] from Last 3 Months Social History [...] 01/02/2024 HPV/Cotest 01/02/2024 COVID-19 Vaccine ( season) 2025 09/25/2020, 08/25/2020 Influenza Vaccine (#1) 2025 3, [...] PM EDT Narrative 10/11/2024 5:00 PM EDT [place] [address] Magnetic Resonance Report Signed Patient: Amada Yanez MR#: [id number] 46 : 1995 Acct:[id number] Age/Sex: 29 / F ADM Date: 10/09/24 Loc: HO.MRI Attending Dr: Johnathan Aden MD Ordering Physician: Johnathan Aden MD Date of Service: 10/09/24 Procedure(s): MR shoulder LT wo con Accession Number(s): [id number] cc: Amada Gunn MD; Johnathan Aden MD [...] in OV> 10/11/241658 DD/ 58 TD/TT: 10/11/241658 Spray Dyer: Procedure Note Donotuseinterpreter, Image - 10/11/2024 [place] [address] Magnetic Resonance Report Signed Patient: Amada Yanez DMR#: [id number] 45 : 1995Acct:[id number] Age/Sex: Date: 10/09/24 Loc: HO.MRI Attending Dr: Johnathan Aden MD Ordering Physician: Johnathan Aden MD Date of Service: 10/09/24 Procedure(s): MR shoulder LT wo con Accession Number(s): [id number] cc: Amada Gunn MD; Johnathan Aden MD [...] in OV> 10/11/241658 DD/ 58 TD/TT: 10/11/241658 Spray Dyer: [facility] External Provider IMG MRI PROCEDURES Edited Result - Final * Hepatitis C Antibody with Reflex to HCV, RNA, Quantitative, Real-Time PCR (05/25/2024 11:37 AM EST) Hepatitis C Antibody Nonreactive Nonreactive [facility] Comment:Antibodies to HCV no t detected; does not exclude early acuteHCV infection. Blood Venous blood specimen / Unknown 05/25/2024 11:37 AM EST 05/25/2024 1:14 PM EST Amada Kidd MD LAB BLOOD ORDERABLES Final Result [facility] [address] [place] [phone] * HIV-1/2 Antigen and Antibodies, Fourth Generation, with Reflexes (05/25/2024 11:37 AM EST) HIV AB/AG Nonreactive Nonreactive [facility] Comment:HIV-1 p24 Ag and/or HIV-1/HIV-2 Ab not detected.A test result that is nonreactive does not exclude thepossibility of exposure to or infection with HIV-1 and/orHIV-2. Nonreactive results in this assay for individualswith prior exposure to HIV-1 and/or HIV-2 may be due toantigen and antibody levels that are below the limit ofdetection of this assay.The [employer] HIV Ag/Ab Combo assay result andsupplemental assay results should be interpreted inconjunction with the patient's clinical presentation,history and other laboratory results. If the results areinconsistent with clinical evidence, additional testing issuggested to confirm the result. Blood Venous blood specimen / Unknown 05/25/2024 11:37 AM EST 05/25/2024 1:14 PM EST Amada Kidd MD LAB BLOOD ORDERABLES Final Result [facility] [address] [place] [address] [phone] from Last 3 Months or Most Recently Relevant to Health Maintenance Insurance [facility] STANDARD Care Teams Business Database Analyst Relationship Specialty Start Date End Date Amada Gunn MD [address] [place] [phone] PCP - General Internal Medicine 07/09/24
--- OUTSIDE RECORDS SUMMARY | 2025-01-04 15:22 | XMS_ITS | Clinical Summary ---
Author Organization [facility] Address [address] [place] [address] Phone Care Team Providers Care Actuary Clerk Name Role Phone Pierre Ang MD Primary [...] Maintenance Results * HIV Screening (05/17/2019) Pathologist [facility] HIV Screening abstracted us Historical Provider MD HEALTH MAINTENANCE Final Result * Pap smear (09/26/2017) 09/26/2017 Narrative HISTORICAL TESTING LAB RESULTING AGENCY - 10/01/2017 2:07 PM EDT [id number] THINPREP PAP, IMAGED: NEGATIVE FOR SQUAMOUS INTRAEPITHELIAL [...] Relevant to Health Maintenance Insurance MEDICAID - [place] Care Teams Actuary Clerk Relationship Specialty Start Date End Date Pierre Ang MD [address] [place] [address] PCP - General Internal Medicine 09/14/21
== END 2025-01-04 14:28 | disposition home or self-care (01) ==
LOC: HO.HOS 14:08
PROVIDERS: PCP Internal Medicine
DX: G56.22 Lesion of ulnar nerve, left upper limb (principal)
CPT/HCPCS: 99024

== ENCOUNTER → 2025-01-04 14:08 | Outpatient (BNVA) | payer MEDICAID, SELFPAY | PROVIDERS: PCP Internal Medicine | DX: G56.22 Lesion of ulnar nerve, left upper limb (principal); Z98.890 Other specified postprocedural states | CPT/HCPCS: 99212 ==

== ENCOUNTER 2025-01-26 09:53 | Outpatient (AMB) | payer MEDICAID, SELFPAY ==
[2025-01-26 09:55] VITALS: BP 128/60; PULSE 73; BMI 21.8
--- NOTE | 2025-01-26 09:55 | MHC.OFFVIS ---
Vital Signs 01/26/25 09:55 Height 5 ft 5 in Weight 131 lb BMI 21.8 BP 128/60 Blood Pressure Location Lt brachial Position Sitting Pulse 73 Intake Visit Reasons: large soft tissue mass in the left side of her nec Intake Note: This patient was referred by Corina Edmondson for large soft tissue mass on the left side of neck. Pt c/o; reports she was referred for a palpable mass on the left side of her neck. reports frequent throat infections, reports a couple months ago she noticed ulcers in the back of her throat, reports intermittent night sweats, reports chills, reports frequent memory fog. Sports Medicine Trainer Required: No Accompanied by: Self / Same As Patient Allergies Penicillins (PENICILLINS) Allergy (Intermediate, Verified 01/26/25 10:09) RASH Medication List - Last Reconciled 01/26/25 by Moi Donato MD cholecalciferol (vitamin D3) (Vitamin D3) 25 mcg PO DAILY gabapentin mg PO ibuprofen 800 mg PO Q8H PRN HPI HPI large soft tissue mass in the left side of her nec: Details: [age] year old female referred for a question of a left neck mass. 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 Kaplan last month and she was told that she may have a mass in the left neck. She was therefore asked to see me. She says she does not feel any mass at all in the left neck. She denies any discomfort on the area. She says she feels well overall. [facility] Medical History (Updated 01/26/25 @ 10:13 by Moi Donato MD) Mass of left side of neck Palpitations Surgical History History of tubal ligation Hx of section Family History Father No problems noted. 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 Review of Systems Const Denies chills and Denies fever(s) Card Denies chest pain, Denies dyspnea and Denies dyspnea on exertion Resp Denies cough, Denies dyspnea and Denies dyspnea on exertion GI Denies hematochezia and Denies change in bowel habits Denies hematuria Musc Denies back pain and Denies limited range of motion Neuro Denies focal weakness and Denies convulsions Psych Denies depression and Denies mood swings Physical Exam Vital Signs: Last Vital Signs Pulse 73 01/26/25 09:55 BP 128/60 01/26/25 09:55 BMI result Body Mass Index 21.8 Neck Other: I am unable to palpate any mass on the left neck currently Assessment & Plan Assessment & Plan (1) Mass of left side of neck: Code(s): R22.1 - Localized swelling, mass and lump, neck Category: Medical Plan: She was referred by the hand surgeon because of question of the mass on the left neck. I am unable to feel any mass on the entire neck on exam currently She says she does not feel any mass either. She denies any significant pain or discomfort of the neck I told her that I will see her again in the office in about 2 months to re-evaluate and see if there is any palpable mass by then. She was reinstructed to see me if she notices anything on the neck earlier than that. Coding Level of Care Code New Pt Level 3 (50217) Diagnoses Mass of left side of neck R22.1
--- OUTSIDE RECORDS SUMMARY | 2025-01-26 12:00 | XMS_ITS | Clinical Summary ---
Author Organization [employer] Address [address] [facility] 7t [place] [address] Care Team Providers Care Crm Campaign Manager Name Role Phone Amada Gunn MD Primary Care Provide r Allergies Active Allergy Reactions Criticality Noted Date Comments Penicillins Hives 05/25/2024 Medications gabapentin (Neurontin) 100 MG capsuleIndicat ions:Ulnar neuropathy of left upper extremity Take 3 capsules (300 mg) by mouth every 8 (eight) hours. 270 capsule 11 5 026 Active D-1000 Extra Strength 25 MCG (1000 UT) tabletIndicati ons:Vitamin D deficiency TAKE 1 TABLET (25 MCG) BY MOUTH ONCE PER DAY. 90 tablet 1 5 Active cholecalcifero l (Vitamin D-3) 25 MCG (1000 UT) tabletIndicati ons:Vitamin D deficiency Take 1 tablet (25 mcg) by mouth Once per day. 60 tablet 2 5 025 Discontinued Active Problems Problem Noted Date Diagnosed Date [...] Encounters Date Type Department Care Team Description 01/17/2025 Refill [facility] MEDICINE [address] [place] [address] Amada Gunn MD Vitamin D deficiency 12/23/2024 Telephone [facility] MEDICINE [address] [place] [phone] Amada Gunn MD No Show 12/21/2024 Telephone [facility] CHC MED & PEDS [address] [place], [place] [phone] Amada Gunn MD Chart Prep 12/21/2024 Travel 12/21/2024 Telephone [facility] MEDICINE [address] [place] [address] Amada Gunn MD Referral 11/29/2024 Telephone [facility] [address] [place] [phone] Amada Gunn MD OCT RECALL from Last 3 Months Social History Tobacco [...] 2025 09/25/2020, 08/25/2020 Influenza Vaccine (#1) 2025 , [...] Procedure Name Priority Date/Time Associated Diagnosis Comments HEPATITIS C AB W/REFL TO HCV RNA, QN, PCR Routine 05/25/2024 11:37 AM EST Palpitations HIV 1/2 ANTIGEN/ANTIBODY, FOURTH GENERATION W/RFL Routine 05/25/2024 11:37 AM EST Palpitations from Last 3 Months or Most Recently Relevant to Health Maintenance Results * Hepatitis C Antibody with Reflex to HCV, RNA, Quantitative, Real-Time PCR (05/25/2024 11:37 AM EST) Hepatitis C Antibody Nonreactive Nonreactive [facility] Comment:Antibodies to HCV no t detected; does not exclude early acuteHCV infection. Blood Venous blood specimen / Unknown 05/25/2024 11:37 AM EST 05/25/2024 1:14 PM EST us Amada Kidd MD LAB BLOOD ORDERABLES Final Result Performing Organization Address [facility]/ZIP Co de Phone Number [facility] [address] [place] [phone] * HIV-1/2 Antigen and Antibodies, Fourth Generation, with Reflexes (05/25/2024 11:37 AM EST) HIV AB/AG Nonreactive Nonreactive [facility] Comment:HIV-1 p24 Ag and/or HIV-1/HIV-2 Ab not detected.A test result that is nonreactive does not exclude thepossibility of exposure to or infection with HIV-1 and/orHIV-2. Nonreactive results in this assay for individualswith prior exposure to HIV-1 and/or HIV-2 may be due toantigen and antibody levels that are below the limit ofdetection of this assay.The [employer] HIV Ag/Ab Combo assay result andsupplemental assay results should be interpreted inconjunction with the patient's clinical presentation,history and other laboratory results. If the results areinconsistent with clinical evidence, additional testing issuggested to confirm the result. Blood Venous blood specimen / Unknown 05/25/2024 11:37 AM EST 05/25/2024 1:14 PM EST us Amada Kidd MD LAB BLOOD ORDERABLES Final Result Performing Organization Address City[facility]/ZIP Co de Phone Number [facility] [address] [place] [address] [phone] from Last 3 Months or Most Recently Relevant to Health Maintenance [place] [address] [address] STANDARD Care Teams Crm Campaign Manager Relationship Specialty Start Date End Date Amada Gunn MD [address] [place] [phone] PCP - General Internal Medicine 07/09/24
--- OUTSIDE RECORDS SUMMARY | 2025-01-26 12:00 | XMS_ITS | Clinical Summary ---
Author Organization [facility] Address [address] [place] [address] Phone Care Team Providers Care Longwall Machine Operator Helper Name Role Phone Pierre Ang MD [...] exists Social Influencers of Health Screening 04/03/2022 Depression Screening 05/05/2024 COVID-19 Vaccine ( season) 2025 09/25/2020, 08/25/2020 Influenza Vaccine (#1) 2025 , 06/02/2019, 02/13/2018, Additional history exists Cholesterol Screening (Lipid Panel) 05/25/2029 05/25/2024 DTaP,Tdap,and Td Vaccines (9 - Td or Tdap) 05/12/2033 05/12/2023, 09/03/2019, 02/13/2018, Additional history exists RSV Immunization Adult Patients (1 - 1-dose 75+ series) 2069 Hepatitis [...] Health Maintenance Results * HIV Screening (05/17/2019) [facility] HIV Screening abstracted Historical Provider MD HEALTH MAINTENANCE Final Result * Pap smear (09/26/2017) 09/26/2017 Narrative HISTORICAL TESTING LAB RESULTING AGENCY - 10/01/2017 2:07 PM EDT [id number] THINPREP PAP, IMAGED: NEGATIVE FOR SQUAMOUS INTRAEPITHELIAL [...] Maintenance Insurance MEDICAID - [place] Care Teams Longwall Machine Operator Helper Relationship Specialty Start Date End Date Pierre Ang MD [address] [place] [address] PCP - General Internal Medicine 09/14/21
== END 2025-01-26 10:14 | disposition home or self-care (01) ==
LOC: HO.HGS 09:54
PROVIDERS: PCP Internal Medicine; Visit Provider Surgery
DX: R22.1 Localized swelling, mass and lump, neck (principal)
CPT/HCPCS: 99203

== ENCOUNTER → 2025-01-26 09:53 | Outpatient (BNVA) | payer MEDICAID, SELFPAY | PROVIDERS: PCP Internal Medicine; Visit Provider Surgery | DX: R22.1 Localized swelling, mass and lump, neck (principal) | CPT/HCPCS: 99202 ==

== ENCOUNTER 2025-02-11 08:57 | Day surgery (SDC) | payer MEDICAID, SELFPAY ==
--- OUTSIDE RECORDS SUMMARY | 2024-12-30 12:18 | XMS_ITS | Clinical Summary ---
Author Organization [employer] Address [address] [facility] 7t [place] [address] Care Team Providers Care Ict Support Engineer Name Role Phone Amada Gunn MD [...] Type Department Care Team Description 12/23/2024 Telephone [facility] MEDICINE [address] [place] [address] Amada Gunn MD No Show 12/21/2024 Telephone [facility] CHC MED & PEDS [address] [place] [address] Amada Gunn MD Chart Prep 12/21/2024 Travel 12/21/2024 Telephone [facility] [address] [place] [address] Amada Gunn MD Referral 11/29/2024 Telephone [facility] MEDICINE [address] [place] [address] Amada Gunn MD OCT RECALL 10/12/2024 Telephone [facility] MEDICINE [address] [place] [address] Amada Gunn MD SEP RECALL 10/09/2024 Orders Only [facility] External Provider, [facility] from Last 3 Months Social [...] PM EDT Narrative 10/11/2024 5:00 PM EDT [place] [address] Magnetic Resonance Report Signed Patient: Amada Yanez MR#: [id number] 46 : 1995 Acct:[id number] Age/Sex: 29 / F ADM Date: 10/09/24 Loc: HO.MRI Attending Dr: Johnathan Aden MD Ordering Physician: Johnathan Aden MD Date of Service: 10/09/24 Procedure(s): MR shoulder LT wo con Accession Number(s): [id number] cc: Amada Gunn MD; Johnathan Aden MD [...] in OV> 10/11/241658 DD/ 58 TD/TT: 10/11/241658 Human Resources Operations Manager: Procedure Note Donotuseinterpreter, Image - 10/11/2024 [place] [address] Magnetic Resonance Report Signed Patient: Amada Yanez DMR#: [id number] 45 : 1995Acct:[id number] Age/Sex: Date: 10/09/24 Loc: HO.MRI Attending Dr: Johnathan Aden MD Ordering Physician: Johnathan Aden MD Date of Service: 10/09/24 Procedure(s): MR shoulder LT wo con Accession Number(s): [id number] cc: Amada Gunn MD; Johnathan Aden MD [...] in OV> 10/11/241658 DD/ 58 TD/TT: 10/11/241658 Human Resources Operations Manager: [facility] External Provider IMG MRI PROCEDURES Edited Result - Final * Hepatitis C Antibody with Reflex to HCV, RNA, Quantitative, Real-Time PCR (05/25/2024 11:37 AM EST) Hepatitis C Antibody Nonreactive Nonreactive [facility] Comment:Antibodies to HCV no t detected; does not exclude early acuteHCV infection. Blood Venous blood specimen / Unknown 05/25/2024 11:37 AM EST 05/25/2024 1:14 PM EST Amada Kidd MD LAB BLOOD ORDERABLES Final Result [facility] [address] [place] [phone] * HIV-1/2 Antigen and Antibodies, Fourth Generation, with Reflexes (05/25/2024 11:37 AM EST) HIV AB/AG Nonreactive Nonreactive [facility] Comment:HIV-1 p24 Ag and/or HIV-1/HIV-2 Ab not detected.A test result that is nonreactive does not exclude thepossibility of exposure to or infection with HIV-1 and/orHIV-2. Nonreactive results in this assay for individualswith prior exposure to HIV-1 and/or HIV-2 may be due toantigen and antibody levels that are below the limit ofdetection of this assay.The [employer] HIV Ag/Ab Combo assay result andsupplemental assay results should be interpreted inconjunction with the patient's clinical presentation,history and other laboratory results. If the results areinconsistent with clinical evidence, additional testing issuggested to confirm the result. Blood Venous blood specimen / Unknown 05/25/2024 11:37 AM EST 05/25/2024 1:14 PM EST Amada Kidd MD LAB BLOOD ORDERABLES Final Result [facility] [address] [place] [phone] [phone] from Last 3 Months or Most Recently Relevant to Health Maintenance Insurance [facility] STANDARD Care Teams Ict Support Engineer Relationship Specialty Start Date End Date Amada Gunn MD [address] [place] [phone] PCP - General Internal Medicine 07/09/24
--- OUTSIDE RECORDS SUMMARY | 2024-12-30 12:18 | XMS_ITS | Clinical Summary ---
Author Organization [facility] Address [address] [place] [address] Phone Care Team Providers Care Tile Roofer Name Role Phone Pierre Ang MD Primary [...] Maintenance Results * HIV Screening (05/17/2019) Pathologist [facility] HIV Screening abstracted us Historical Provider MD HEALTH MAINTENANCE Final Result * Pap smear (09/26/2017) 09/26/2017 Narrative HISTORICAL TESTING LAB RESULTING AGENCY - 10/01/2017 2:07 PM EDT [id number] THINPREP PAP, IMAGED: NEGATIVE FOR SQUAMOUS INTRAEPITHELIAL [...] Relevant to Health Maintenance Insurance MEDICA[place] - [place] Care Teams Tile Roofer Relationship Specialty Start Date End Date Pierre Ang MD [address] [place] [address] PCP - General Internal Medicine 09/14/21
[2025-01-28 09:22] VITALS: BMI 21.8
--- NOTE | 2025-01-31 15:04 | HO.ANESPROP2 ---
Documented by User: Sophia Pinzon NP 02/04/25 10:35 HPI - Anesthesia Eval Consult details Narrative: 29yo F for Left Shoulder Arthroscopy,distal clavicle excision,acromioplasty,capsular release,manipulation, 02/11/25 s/p cubital tunnel 12/2024 with MAC Cardiac optimized. Eval'd by [facility] for palpitations. Testing WNL and symptoms resolved per 11/2024 office visit PMFSH Active Problems Active Problems: All Active Problems Joint pain (Acute) Family history of rheumatoid arthritis (Acute) Neck mass (Acute) Trigger finger, left middle finger (Acute) Cubital tunnel syndrome on left (Acute) Impingement syndrome of left shoulder (Acute) Rotator cuff insufficiency of left shoulder (Acute) Mass of left side of neck (Acute) Past Medical History Medical History Arthritis Anemia History of headache Mass of left side of neck Palpitations Family History Family History Father No problems noted. Mother HTN (hypertension) Diabetes Rheumatoid arthritis Family history of problems with anesthesia: No Surgical History Surgical History Hx of release of tendon (~12/20/24) History of tubal ligation Hx of section History of Problems with Anesthesia: No Social History Social History Are you a primary patient care technician instructor to a significant other at home: No Do you presently have visiting nurse or other home services: No Patient Tobacco Use Status: Never used Tobacco Second Hand Smoke Exposure: No Use of substances other than those prescribed or required for medical reasons: No Have you been hit, kicked, punched, or otherwise hurt by someone within the past year? If so, by whom?: No Are you DNR?: No Advance Directives: No Advance Directives Information Provided: Yes Advance Directives on File: No Patient : No : No Poor oral hygiene: Yes Current occupational status: employed Current occupation: [employer] Meds Allergies Allergy/AdvReac Type Severity Reaction Status Date / Time Penicillins (PENICILLINS) Allergy Intermediate RASH Verified 01/26/25 10:09 Home Medications ?Medication ?Instructions ?Recorded ?Confirmed ?Last Taken ?Type cholecalciferol (vitamin D3) 25 25 mcg PO DAILY 11/10/24 01/28/25 12/19/24 History mcg (1,000 unit) tablet (Vitamin D3) ibuprofen 800 mg tablet 800 mg PO Q8H PRN pain 12/29/24 01/28/25 Unknown History Exam Height,Weight and Vital Signs: Height 5 ft 5 in Weight 59.421 kg Pertinent Lab Results Pertinent Lab Results: Laboratory Tests 05/25/24 11:37 WBC 7.8 Hgb 12.0 Hct 36.8 L Plt Count 279 Sodium 137 Potassium 3.4 Chloride 108 Carbon Dioxide 23 BUN 13 Creatinine 0.64 Narrative Narrative: EKG 11/2024 Details: EKG today showed normal sinus rhythm with sinus arrhythmia, 77 beats per minute, nonspecific ST-T wave, normal OR, corrected QT. 11/04/2024-Holter study showed a baseline sinus rhythm with an average heart rate of 71 beats per minute, rare supraventricular and ventricular ectopies. 11/04/2024-echo study showed a normal LV systolic function with an ejection fraction between 65-70% with no wall motion abnormalities. 11/04/2024-patient underwent a stress test with a moderate workload of 10.1 Mets without any chest pain or EKG changes. Assessment and Plan Assessment Anesthesia Assessment: Chart Reviewed Final Anesthetic Review Family History of Problems with Anesthesia: No History of Problems with Anesthesia: No Documented by User: Marianela Hubbard MD 02/11/25 10:36 PMFSH Past Medical History Medical History Arthritis Anemia History of headache Mass of left side of neck Palpitations Family History Family History Father No problems noted. Mother HTN (hypertension) Diabetes Rheumatoid arthritis Surgical History Surgical History Hx of release of tendon (~12/20/24) History of tubal ligation Hx of section Social History Social History Are you a primary patient care technician instructor to a significant other at home: No Do you presently have visiting nurse or other home services: No Patient Tobacco Use Status: Never used Tobacco Second Hand Smoke Exposure: No Use of substances other than those prescribed or required for medical reasons: No Have you been hit, kicked, punched, or otherwise hurt by someone within the past year? If so, by whom?: No Are you DNR?: No Advance Directives: No Advance Directives Information Provided: Yes Advance Directives on File: No Patient : No : No Poor oral hygiene: Yes Current occupational status: employed Current occupation: [employer] Meds Allergies Allergy/AdvReac Type Severity Reaction Status Date / Time Penicillins (PENICILLINS) Allergy Intermediate RASH Verified 01/26/25 10:09 Home Medications ?Medication ?Instructions ?Recorded ?Confirmed ?Last Taken ?Type cholecalciferol (vitamin D3) 25 25 mcg PO DAILY 11/10/24 01/28/25 12/19/24 History mcg (1,000 unit) tablet (Vitamin D3) ibuprofen 800 mg tablet 800 mg PO Q8H PRN pain 12/29/24 01/28/25 Unknown History Exam Airway Heart: rrr Lungs: cta Assessment and Plan Assessment Anesthesia Assessment: Anesthesia Plan Discussed Final Anesthetic Review NPO: Yes ASA Class: II Final Preanesthetic Review: No Changes in Pt Med Stat, Meds/Allgs Chart Reviewed, Consent Obtained/Reviewed and Anes Risks/Benef Reviewed Patient Risk: Low Procedure Risk: Intermediate Anesthetic Plan Anesthetic Plan: GA, Regional Block and Agree w/ Assess. and Plan Disposition: Standard PACU
[2025-02-11] VITALS (8 sets, daily range): BP systolic 96–119; BP diastolic 54–81; PULSE 67–86; RESP 12–20; TEMP 36.1–36.5; O2SAT 93–100
[2025-02-11] MEDS: Lactated Ringers 1,000 ML 100 ML IVCONT (09:19)
--- NOTE | 2025-02-11 12:48 | P.BOP_ITS ---
Brief Operative Note Date of Service: 02/11/25 Pre-op diagnosis: Left shoulder impingement syndrome, left shoulder acromioclavicular joint arthritis, left shoulder adhesive capsulitis Post-op diagnosis: same Procedure: Left shoulder arthroscopic distal clavicle excision, left shoulder arthroscopic acromioplasty, left shoulder arthroscopic anterior capsular release, left shoulder manipulation under anesthesia Implants: none Surgeon: Johnathan Aden MD Anesthesia: GETA and regional Was an Bander And Cellophaner Helper Machine used for this Procedure?: No Estimated blood loss (mL): 10 Pathology: none sent Condition: stable Disposition: PACU
--- NOTE | 2025-02-11 12:58 | W.PM.OPN ---
Operative Note Operative Note Date of Service: 02/11/25 Narrative: After the patient was identified as Amada Yanez and her left shoulder was initialed by myself the patient was brought to the holding area where a left shoulder interscalene regional block was performed by the anesthesiologist in routine fashion. The patient was then brought to the operating room where general anesthesia was induced by the anesthesiologist in routine fashion. Because of the patient's allergy to penicillins she was given 900 mg of IV clindamycin preoperatively for infection prophylaxis. Examination under anesthesia of the patient's left shoulder showed decreased range of motion when compared to the right shoulder. The patient's left shoulder had forward flexion to 140 degrees compared to 170 degrees, external rotation to 40 degrees compared to 70 degrees, and internal rotation to 50 degrees compared to 60 degrees. The patient was gently positioned in the beach chair position with all bony prominences well padded. The patient's left shoulder region and upper extremity were prepped and draped in sterile fashion. A formal time-out was completed. A #11 scalpel blade was used to make a posterior portal 2 cm inferior and 1 cm medial to the posterolateral corner of the acromion. Blunt trocar technique was used to enter the glenohumeral joint in routine fashion. An anterior portal was made just lateral to the coracoid process after proper positioning was confirmed using a spinal needle. Diagnostic arthroscopy showed minimal degenerative changes of the glenoid and humeral head articular surfaces. There was no evidence of rotator cuff tearing. There was no evidence of injury to the biceps tendon or its insertion onto the glenoid. There was inflammation of the anterior joint capsule consistent with adhesive capsulitis. The ArthroCare Wand was then used to perform an anterior capsular release between the inferior border of the biceps tendon and the superior border of the subscapularis tendon. The arthroscope was then placed from the posterior portal into the subacromial space. A lateral portal was made 2 fingerbreadths lateral to the anterior lateral corner of the acromion. The ArthroCare Wand was used to ablate soft tissues along the undersurface of the acromion as well as to excise the coracoacromial ligament. There was a sharp spur along the undersurface of the acromion which was removed using the hooded bur. The arthroscope was then placed into the lateral portal and the acromioplasty was completed with the bur in the posterior portal using the posterior aspect of the acromion as a cutting block. The ArthroCare Wand was then brought in through the anterior portal and was used to ablate soft tissues along the acromioclavicular joint and distal clavicle. The posterior and superior ligamentous structures were left intact. A distal clavicle excision of 8 mm was performed using the hooded bur. Any remaining bursal tissue was removed using the arthroscopic shaver. The subacromial space was irrigated and then drained. All arthroscopic instruments were removed. A gentle manipulation under anesthesia was then performed. Full passive range of motion was easily attained. The 3 portals were closed with 3-0 nylon interrupted suture. The subacromial space was injected with Marcaine. Dry sterile dressing was placed over all incisions. The patient's left upper extremity was placed into a sling. The patient was awoken and extubated in the operating room. The patient was transferred to the recovery room in stable condition.
== END 2025-02-11 14:08 | disposition home or self-care (01) ==
PROVIDERS: PCP Internal Medicine; Visit Provider Orthopaedic Surgery
PROC: (CPT 29805; principal; 2025-02-11 11:00)
DX: M75.42 Impingement syndrome of left shoulder (principal); M75.02 Adhesive capsulitis of left shoulder; M25.512 Pain in left shoulder; M19.012 Primary osteoarthritis, left shoulder; R00.2 Palpitations; Z82.61 Family history of arthritis; Z79.1 Long term (current) use of non-steroidal anti-inflammatories (NSAID); Z79.899 Other long term (current) drug therapy; Z88.0 Allergy status to penicillin; Z98.51 Tubal ligation status; Z98.890 Other specified postprocedural states
CPT/HCPCS: 29824; 29825; 29826; J0131; J0165; J0665; J0736; J1100; J2003; J2250; J2405; J2704; J2795; J3010

== ENCOUNTER → 2025-02-11 08:57 | Outpatient (BNV) | payer MEDICAID, SELFPAY | PROVIDERS: PCP Internal Medicine; Visit Provider Orthopaedic Surgery | DX: M75.42 Impingement syndrome of left shoulder (principal); M19.012 Primary osteoarthritis, left shoulder; M75.02 Adhesive capsulitis of left shoulder | CPT/HCPCS: 29824; 29826 ==

== ENCOUNTER 2025-03-03 10:40 | Outpatient (AMB) | payer MEDICAID, SELFPAY ==
--- NOTE | 2025-03-03 10:48 | A.OFFVIS_ITS ---
Intake Visit Reasons: PO LT should 02/11/25 Intake Note: Amada is a 30 year old woman who presents with mild intermittent discomfort in her left shoulder after undergoing left shoulder arthroscopic surgery on 02/11/2025. She continues with her home stretching program. She denies any fevers or chills. She is no longer taking narcotics for her discomfort. Allergies Penicillins (PENICILLINS) Allergy (Intermediate, Verified 03/03/25 10:57) RASH Medication List - Last Reconciled 03/03/25 by Johnathan Aden MD cholecalciferol (vitamin D3) (Vitamin D3) 25 mcg PO DAILY ibuprofen 800 mg PO Q8H PRN oxycodone 10 mg (2 x 5 mg) PO Q4H PRN PFSH Medical History (Updated 03/03/25 @ 11:33 by Johnathan Aden MD) Arthritis Anemia History of headache Mass of left side of neck Palpitations Surgical History (Updated 03/03/25 @ 10:58 by CHAR Rodríguez) History of arthroscopic surgery of shoulder Hx of release of tendon (~12/20/24) History of tubal ligation Hx of section Family History Father No problems noted. 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 Yanez is doing well after undergoing left shoulder arthroscopic surgery on 02/11/2025. Her sutures were removed and Steri-Strips placed over her incisions. She will continue with her home stretching program. The do's and don'ts of lifting were discussed at length with the patient. She will contact me prior to her follow-up appointment in 2 months should any questions or concerns arise. Feel free to call me at any time should questions regarding her orthopedic management arise. Coding Level of Care Code Global (34838) Diagnoses Left shoulder pain M25.512
--- OUTSIDE RECORDS SUMMARY | 2025-03-03 13:11 | XMS_ITS | Clinical Summary ---
Author Organization [facility] Address [address] [place] [address] Phone Care Team Providers Care Oncology Consultant Name Role Phone Pierre Ang MD Primary [...] trimester Overview (04/22/2024): Ferrous fumarate BID Immunizations Immunization Administration Dates Next Due Influenza Quadravalent, MDCK [...] Health Maintenance Results * HIV Screening (05/17/2019) [facility] HIV Screening abstracted Historical Provider MD HEALTH MAINTENANCE Final Result * Pap smear (09/26/2017) 09/26/2017 Narrative HISTORICAL TESTING LAB RESULTING AGENCY - 10/01/2017 2:07 PM EDT [id number] THINPREP PAP, IMAGED: NEGATIVE FOR SQUAMOUS INTRAEPITHELIAL [...] Relevant to Health Maintenance Insurance MEDICAID - [place] Care Teams Oncology Consultant Relationship Specialty Start Date End Date Pierre Ang MD [address] [place] [address] PCP - General Internal Medicine 09/14/21
--- OUTSIDE RECORDS SUMMARY | 2025-03-03 13:11 | XMS_ITS | Clinical Summary ---
Author Organization [facility] [facility] [employer] Address [address] [place] [address] Care Team Providers Care Strategic Manager Name Role Phone Amada Gunn MD Primary Care Provide r Allergies Active Allergy Reactions Criticality Noted Date Comments Penicillins Hives 05/25/2024 Medications gabapentin (Neurontin) 100 MG capsuleIndicati ons:Ulnar neuropathy of left upper extremity Take 3 capsules (300 mg) by mouth every 8 (eight) hours. 270 capsule 11 07/30/2024 07/31/19 26 Active D-1000 Extra Strength 25 MCG (1000 UT) tabletIndicatio ns:Vitamin D deficiency TAKE 1 TABLET (25 MCG) BY MOUTH ONCE PER DAY. 90 tablet 1 01/17/2025 Active Active Problems Problem Noted Date Diagnosed [...] Type Department Care Team Description 01/17/2025 Refill [facility] [address] [place] [address] Amada Gunn MD Vitamin D deficiency 12/23/2024 Telephone [facility] [address] [place], [place] [phone] Amada Gunn MD No Show 12/21/2024 Telephone [facility] [address] [place], [place] [phone] Amada Gunn MD Chart Prep 12/21/2024 Travel 12/21/2024 Telephone [facility] [address] [place], [place] [phone] Amada Gunn MD Referral from Last 3 Months Social History Tobacco [...] Use Screening 2006 Family Planning (PISQ) 2009 COVID-19 Vaccine ( season) 2025 09/25/2020, 08/25/2020 Influenza Vaccine (#1) 2025 , 03/19/2023, 06/02/2019, Additional history exists Depression Screening 05/25/2025 05/25/2024, 05/25/19 25 SDOH Screening 05/25/2025 05/25/2024 Tobacco Screening 05/25/2025 05/25/2024 Disability Screening 07/05/2025 07/05/2024 Cervical Cancer Screening 01/16/2028 HPV/Cotest 01/16/2028 01/15/2023 Pap Smear 01/16/2028 01/15/2023 DTaP/Tdap/Td Vaccines (9 - Td or Tdap) [...] W/RFL Routine 05/25/2024 11:37 AM EST Palpitations HM PAP/HPV Routine 01/15/2023 from Last 3 Months or Most Recently Relevant to Health Maintenance Results * Hepatitis C Antibody with Reflex to HCV, RNA, Quantitative, Real-Time PCR (05/25/2024 11:37 AM EST) Pathologist [facility] Hepatitis C Antibody Nonreactive Nonreactive [facility] Comment:Antibodies to HCV no t detected; does not exclude early acuteHCV infection. Blood Venous blood specimen / Unknown 05/25/2024 11:37 AM EST 05/25/2024 1:14 PM EST Amada Kidd MD LAB BLOOD ORDERABLES Final Result Performing Organization Address City/[facility]/ZIP Co de Phone Number [facility] [address] [place] [address] [phone] * HIV-1/2 Antigen and Antibodies, Fourth Generation, with Reflexes (05/25/2024 11:37 AM EST) [facility] HIV AB/AG Nonreactive Nonreactive [facility] Comment:HIV-1 p24 Ag and/or HIV-1/HIV-2 Ab not detected.A test result that is nonreactive does not exclude thepossibility of exposure to or infection with HIV-1 and/orHIV-2. Nonreactive results in this assay for individualswith prior exposure to HIV-1 and/or HIV-2 may be due toantigen and antibody levels that are below the limit ofdetection of this assay.The [facility] HIV Ag/Ab Combo assay result andsupplemental assay results should be interpreted inconjunction with the patient's clinical presentation,history and other laboratory results. If the results areinconsistent with clinical evidence, additional testing issuggested to confirm the result. Blood Venous blood specimen / Unknown 05/25/2024 11:37 AM EST 05/25/2024 1:14 PM EST us Amada Kidd MD LAB BLOOD ORDERABLES Final Result Performing Organization Address City/[facility]/ZIP Co de Phone Number [facility] [address] [place] [address] [phone] * HM PAP/HPV (01/15/2023) Pap Smear 1. NILM 1. NILM HPV Not Detected Undetected, Indeterminat e, Quantitative , Not Detected us Historical Provider HEALTH MAINTENANCE Final Result from Last 3 Months or Most Recently Relevant to Health Maintenance Insurance STANDARD Care Teams Strategic Manager Relationship Specialty Start Date End Date Amada Gunn MD [address] [place] [address] PCP - General Internal Medicine 07/09/24
== END 2025-03-03 11:09 | disposition home or self-care (01) ==
LOC: HO.HOS 10:40
PROVIDERS: PCP Internal Medicine; Visit Provider Orthopaedic Surgery
DX: M25.512 Pain in left shoulder (principal)
CPT/HCPCS: 99024

== ENCOUNTER → 2025-03-03 10:40 | Outpatient (BNVA) | payer MEDICAID, SELFPAY | PROVIDERS: PCP Internal Medicine; Visit Provider Orthopaedic Surgery | DX: M25.512 Pain in left shoulder (principal) | CPT/HCPCS: 99212 ==

== ENCOUNTER 2025-03-29 08:54 | Outpatient (AMB) | payer MEDICAID, SELFPAY ==
[2025-03-29 08:56] VITALS: BP 116/70; PULSE 73; O2SAT 99; BMI 22.6
--- NOTE | 2025-03-29 08:56 | A.OFFVIS_ITS ---
Vital Signs 03/29/25 08:56 Height 5 ft 5 in Weight 135 lb 12.876 oz BMI 22.6 BP 116/70 Blood Pressure Location Lt brachial Position Sitting Pulse 73 Pulse Source Pulse Oximeter Pulse Oximetry (%) 99 Oxygen Delivery Method Room Air Intake Visit Reasons: joint pain/ New Patient/CM address Intake Note: Patient is a new patient, internally referred by Dr. Arteaga in orthopedics for polyarthralgia/joint pain. She states it started in her left leg at age 18, now feels joint pain everywhere. 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 She had complains of left forearm pain, numbness and tingling and therefore had a left cubital tunnel release on 12/20 2024 with good symptom resolution postoperatively. She also had left shoulder pain and had a left shoulder arthroscopic surgery on 02/11/2025 She states she has joint pain in the left hip and left knee- stiffness in the morning 2 hours and then gets better, soemtimes pain awakens her up at night. She also endorses pain in the knuckles in her hands and wrists, with stiffness in hands in the am lasting for 2 hours. She has been having chest pains sharps pains, and it hurts to take a deep breath. She saw a hooker off [place] [facility] [place] all testing was unremarakable.She states she has episodes of painful eyes and photophobia but was worked up by the composite assembler and there was no remarkable findings. On ROS: she denies photosensitivity, she endorses oral ulcers that are painful intermittently, she endorses Raynaud's phenomena, she denies any miscarriages any blood clots she has 3 healthy children. She also endorses hair fall. No skin rash On family history, she has maternal cousins that have lupus and her mother has rheumatoid arthritis Blood work including CBC CMP reviewed no significant abnormality, left shoulder MRI was done which revealed Supraspinatus and infraspinatus tendinopathy. No rotator cuff tear. and Mild acromioclavicular and glenohumeral joint osteoarthritis. Vital signs reviewed Physical Examination CONSTITUITIONAL Patient alert and cooperative. Well appearing and in no apparent painful distress HEENT Conjunctiva and sclera clear. No lymphadenopathy. CHEST/RESPIRATORY SYSTEM Normal respiratory effort and able to speak in complete sentences. Clear to auscultation bilaterally. No crackles, rales, rhonchi, wheezes heard. CARDIAC SYSTEM Regular rate and rhythm. S1 and S2 heard no murmurs. Radial pulses intact bilaterally MSK Hands * Right Hand: Able to make a fist. No swelling or tenderness to palpation of the MCPs, PIPs or DIPs. No deformities noted. * Left Hand: Able to make a fist. No swelling or tenderness to palpation of the MCPs, PIPs or DIPs. No deformities noted. Wrists * Right Wrist: Full ROM to flexion and extension. No swelling or TTP * Left Wrist: Full ROM to flexion and extension. No swelling or TTP Elbows * Right Elbow: Full ROM. No swelling or TTP. No TTP of the medial epicondyle. No TTP of the lateral epicondyle * Left Elbow: Full ROM. No swelling or TTP. No TTP of the medial epicondyle. No TTP of the lateral epicondyle Shoulders * Right shoulder: Full ROM. No swelling noted. No TTP of the AC joint. No TTP of the subacromial bursa. No TTP of the posterior shoulder * Left shoulder: Full ROM. No swelling noted. No TTP of the AC joint. No TTP of the subacromial bursa. No TTP of the posterior shoulder Hips * Right hip: Good ROM. No pain elicited with hip flexion/internal rotation/external rotation * Left hip: Good ROM. No pain elicited with hip flexion/internal rotation/ext ernal rotation Hip bursa: No tenderness to palpation bilaterally Knees * Right knee: Full ROM. No swelling noted. No TTP of the knee joint line. No TTP of pes anserine bursa * Left knee: Full ROM. No swelling noted. No TTP of the knee joint line. No TTP of pes anserine bursa. Ankles * Right ankle: Good ankle dorsiflexion and plantar flexion. No swelling. No TTP of the ankle joint * Left ankle: Good ankle dorsiflexion and plantar flexion. No swelling. No TTP of the ankle joint Feet * Right foot: Negative squeeze test * Left foot: Negative squeeze test Tender points? * No tenderness to palpation of the bilateral trapezius, supraspinatus, anterior costochondral junctions, bilateral suboccipital muscle insertions SKIN No rashes PFSH Medical History (Updated 03/29/25 @ 09:38 by Kami Garrett MD) Arthritis Anemia History of headache Mass of left side of neck Palpitations Surgical History History of arthroscopic surgery of shoulder Hx of release of tendon (~12/20/24) History of tubal ligation Hx of section Family History Father No problems noted. Mother HTN (hypertension) Diabetes Rheumatoid arthritis Social History Are you a primary care director to a significant other at home: No Do you presently have visiting nurse or other home services: No Patient Tobacco Use Status: Never used Tobacco Second Hand Smoke Exposure: No Current occupational status: employed Current occupation: [employer], rt handed Physical Exam Vital Signs: BMI result Body Mass Index 22.6 Assessment & Plan Assessment & Plan (1) Polyarthralgia: Code(s): M25.50 - Pain in unspecified joint Category: Medical (2) Cubital tunnel syndrome on left: Code(s): G56.22 - Lesion of ulnar nerve, left upper limb Category: Medical (3) Family history of rheumatoid arthritis: Code(s): Z82.61 - Family history of arthritis Category: Medical (4) Left shoulder pain: Code(s): M25.512 - Pain in left shoulder Category: Medical Qualifiers: Chronicity: chronic (5) Polyarthralgia: Code(s): M25.50 - Pain in unspecified joint Category: Medical (6) Muscle weakness: Code(s): M62.81 - Muscle weakness (generalized) Category: Medical Plan This is a 30-year-old female who presents with the evaluation of joint pain, this is particularly pronounced on the left side, with her left hip, left knee and bilateral hands. She does not report any significant back pain. On review of systems, she endorses Raynaud's, oral ulcers, hair fall. No active synovitis noted. Based on her history and her physical exam patient's joint pain can be attributed to noninflammatory like osteoarthritis versus inflammatory like RA or undifferentiated connective tissue disease. Low likelihood for diseases like SLE, psoriatic arthritis, scleroderma Sjogren's. We will complete our workup including bilateral hand x-rays, bilateral knee x- rays in bilateral hip x-rays with pelvis view. We will also do blood work inc [facility] arthritis panel CRISTEL, CRISTEL subsets, RF, CCP, CBC CMP, C3-C4, you PCR. 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 Antibodies Today R76.0 - Raised antibody titer Scleroderma 70 Antibody Today R76.0 - Raised antibody titer Anti-Centromere B Antibodies Today R76.0 - Raised antibody titer ZAYDA 1 Antibody Today R76.0 - Raised antibody titer PT Evaluation and Treatment Today M25.50 - Pain in unspecified joint XR Hand Jeff 2V Today G56.22 - Lesion of ulnar nerve, left upper limb, M25.50 - Pain in unspecified joint, M25.512 - Pain in left shoulder, Z82.61 - Family history of arthritis XR hip BI w PEL1V Today M25.50 - Pain in unspecified joint XR Knee Jeff 1or 2V Today M25.50 - Pain in unspecified joint Complete Blood Count Auto Diff Today R76.0 - Raised antibody titer Comprehensive Met. Panel Today R76.0 - Raised antibody titer Erythrocyte Sedimentation Rate Today R76.0 - Raised antibody titer C Reactive Protein Today R76.0 - Raised antibody titer UA ClnCatch+Micro w/rflx Cult Today R76.0 - Raised antibody titer DNA Double Stranded-Crithidia Today R76.0 - Raised antibody titer Sjogren's Antibodies Today R76.0 - Raised antibody titer Cyclic Citrullinated Peptide Today R76.0 - Raised antibody titer Rheumatoid Factor Today R76.0 - Raised antibody titer Scleroderma 12 Panel Today R76.0 - Raised antibody titer Creatine Kinase Total Today M62.81 - Muscle weakness (generalized) Coding Level of Care Code New Pt Level 4 (78166) Diagnoses Polyarthralgia M25.50 Cubital tunnel syndrome on left G56.22 Family history of rheumatoid arthritis Z82.61 Left shoulder pain M25.512 Chronicity: chronic Muscle weakness M62.81
--- OUTSIDE RECORDS SUMMARY | 2025-03-29 09:27 | XMS_ITS | Clinical Summary ---
Author Organization [employer] Address [address] [place] [address] Care Team Providers Care Network Operations Center Technician Name Role Phone Amada Gunn MD [...] Encounters Date Type Department Care Team Description 03/18/2025 Telephone [facility] [address] [place] [address] Amada Gunn MD feb recalls 01/17/2025 Refill [facility] [address] [place] [address] Amada Gunn MD Vitamin D deficiency from Last 3 Months Social History Tobacco [...] Care Team (Late st Contact Info) Description 06/09/2025 10:45 AM EST Office Visit [facility] [address] [place] [place], [place] [phone] Amada Gunn MD [address] [place] [phone] Health Maintenance Due Date Last Done Comments [...] AM EST) Hepatitis C Antibody Nonreactive Nonreactive [facility] Comment:Antibodies to HCV no t detected; does not exclude early acuteHCV infection. Blood Venous blood specimen / Unknown 05/25/2024 11:37 AM EST 05/25/2024 1:14 PM EST Amada Kidd MD LAB BLOOD ORDERABLES Final Result [facility] [address] [place] [address] [phone] * HIV-1/2 Antigen and Antibodies, Fourth Generation, with Reflexes (05/25/2024 11:37 AM EST) [facility] HIV AB/AG Nonreactive Nonreactive [facility] Comment:HIV-1 p24 Ag and/or HIV-1/HIV-2 Ab not detected.A test result that is nonreactive does not exclude thepossibility of exposure to or infection with HIV-1 and/orHIV-2. Nonreactive results in this assay for individualswith prior exposure to HIV-1 and/or HIV-2 may be due toantigen and antibody levels that are below the limit ofdetection of this assay.The [facility] HIV Ag/Ab Combo assay result andsupplemental assay results should be interpreted inconjunction with the patient's clinical presentation,history and other laboratory results. If the results areinconsistent with clinical evidence, additional testing issuggested to confirm the result. Blood Venous blood specimen / Unknown 05/25/2024 11:37 AM EST 05/25/2024 1:14 PM EST us Amada Kidd MD LAB BLOOD ORDERABLES Final Result Performing Organization Address City/[facility]/ZIP Co de Phone Number [facility] [address] [place] [address] [phone] * HM PAP/HPV (01/15/2023) Pap Smear 1. NILM 1. NILM HPV Not Detected Undetected, Indeterminat e, Quantitative , Not Detected us Historical Provider HEALTH MAINTENANCE Final Result from Last 3 Months or Most Recently Relevant to Health Maintenance Insurance STANDARD Care Teams Network Operations Center Technician Relationship Specialty Start Date End Date Amada Gunn MD [address] [place] [address] PCP - General Internal Medicine 07/09/24
--- OUTSIDE RECORDS SUMMARY | 2025-03-29 09:27 | XMS_ITS | Clinical Summary ---
Author Organization [facility] Address [address] [place] [address] Phone Care Team Providers Care Online Facilitator Name Role Phone Pierre Ang MD Primary [...] RESULTING AGENCY - 10/01/2017 2:07 PM EDT [id number] THINPREP PAP, IMAGED: NEGATIVE FOR SQUAMOUS INTRAEPITHELIAL [...] Maintenance Insurance [place] Care Teams Online Facilitator Relationship Specialty Start Date End Date Pierre Ang MD [address] [place] [address] PCP - General Internal Medicine 09/14/21
== END 2025-03-29 09:38 | disposition home or self-care (01) ==
LOC: HO.RHES 08:55
PROVIDERS: PCP Internal Medicine; Visit Provider Student in an Organized Health Care Education/Training Program
DX: G56.22 Lesion of ulnar nerve, left upper limb (principal); Z82.61 Family history of arthritis; M25.512 Pain in left shoulder; M62.81 Muscle weakness (generalized)
CPT/HCPCS: 99204

== ENCOUNTER 2025-03-29 08:54 | Outpatient (REF) | payer MEDICAID, SELFPAY ==
[2025-03-29 13:08] LABS: Appearance Urine Clear; Glucose Urine UA Negative (Negative); PH 5.5 (5.0-9.0); Specific Gravity - Urine 1.025 (1.005-1.025); UMIC TRIGGER UACC YES
[2025-03-29 13:49] LABS: Protein/Creatinine Ratio, Ur 0.04 (<0.2); Total Protein Urine Random 15 mg/dL (<12)
[2025-03-29 14:07] LABS: MANUAL DIFF FLAG NO
[2025-03-29 14:16] LABS: Hematocrit 34.7 % (37.0-47.0); Hemoglobin 11.0 g/dl (12.0-16.0); Imm Gran Abs Auto 0.01 X10*3/uL (0.00-0.03); Imm Gran Pct Auto 0.1 % (0.0-0.4); Lymphocytes Absolute Auto 1.4 X10*3/uL (1.2-4.9); Mean Corpuscular HGB Conc 31.7 g/dl (31.0-35.0); Mean Corpuscular Hemoglobin 26.9 pg (27.0-33.0); Mean Corpuscular Volume 84.8 fL (80.0-98.0); NRBC Abs Auto 0.000 X10*3/uL (0.0-0.012); NRBC Pct Auto 0.0 /100WBC (0.0-0.2); Platelet Count 358 X10*3/uL (160-400); Red Blood Count 4.09 X10*6/uL (4.20-5.50); White Blood Count 7.2 X10*3/uL (4.8-10.8)
[2025-03-29 14:57] LABS: Alanine Aminotransferase 12 U/L (0-31); Albumin Level 4.8 g/dL (3.5-5.0); Alkaline Phosphatase 69 U/L (39-117); Anion Gap 10 (12-20); Aspartate Amino Transferase 19 U/L (5-31); Blood Urea Nitrogen 7 mg/dL (9-16); Calcium 9.3 mg/dL (8.4-10.2); Carbon Dioxide 26 mmol/L (22-29); Chloride 107 mmol/L (96-108); Estimated Glomerular Filt Rate > 60; Potassium 3.4 mmol/L (3.3-5.1); Sodium 140 mmol/L (135-145); Total Protein 8.1 g/dL (6.5-8.0)
[2025-03-29 14:58] LABS: Erythrocyte Sedimentation Rate 13 MM/HR (0-20)
[2025-03-30 22:37] LABS: Antibody to SS-A Antigen <1.0 NEG AI (<1.0 NEG); Antibody to SS-B Antigen <1.0 NEG AI (<1.0 NEG); SM/Ribonucleoprotein Ab <1.0 NEG AI (<1.0 NEG); Smith Protein <1.0 NEG AI (<1.0 NEG)
[2025-04-04 10:18] LABS: Anti Nuclear Antibody Screen POSITIVE (NEGATIVE); Anti Nuclear Antibody Titer 1:40 titer
[2025-04-04 16:33] LABS: DNAds, Crithidia Antibody Negative (Negative)
[2025-04-06 13:03] LABS: Centromere Protein A Ab <11 SI (<11); Centromere Protein B Ab <11 SI (<11); Fibrillarin Ab <11 SI (<11); PM SCL 100 Ab <11 SI (<11); PM SCL 75 Ab <11 SI (<11); RNA Polymerase III RP11 Ab <11 SI (<11); RNA Polymerase III RP155 Ab <11 SI (<11); SCL-70 Extractable Nuclear Ab <11 SI (<11); Th-To Ab <11 SI (<11); U1 SNRNP RNP 70KD <11 SI (<11); U1 SNRNP RNP A <11 SI (<11); U1 SNRNP RNP C <11 SI (<11)
== END 2025-03-29 08:55 | disposition home or self-care (01) ==
LOC: HO.HKASLDS 08:54
PROVIDERS: PCP Internal Medicine; Visit Provider Student in an Organized Health Care Education/Training Program
DX: G56.22 Lesion of ulnar nerve, left upper limb (principal); Z82.61 Family history of arthritis; M25.512 Pain in left shoulder; G89.29 Other chronic pain; M62.81 Muscle weakness (generalized); R76.0 Raised antibody titer
CPT/HCPCS: 36415; 80053; 81001; 82550; 82570; 83516; 84156; 84182; 85025; 85652; 86038; 86039; 86140; 86160; 86200; 86225; 86235; 86255; 86431; 99202

== ENCOUNTER 2025-04-11 09:54 | Outpatient (REF) | payer MEDICAID, SELFPAY ==
--- NOTE | ~2025-04-11 | XR_ITS ---
EXAMINATION: XR KNEE BILATERAL CLINICAL INFORMATION: M25.50 - Pain in unspecified joint COMPARISON: None available. TECHNIQUE: AP view of standing position both knees. Lateral views both knees. FINDINGS: Joint space narrowing involving medial lateral compartments with associated sclerosis along the articular surfaces of the tibial plateaus. No acute fracture or dislocation. No suprapatellar bursa joint effusion. No lytic or blastic lesions. No metallic or radiopaque foreign body. No gross soft tissue calcifications. XR/XR Knee Jeff 1or 2V IMPRESSION: Bicompartmental osteoarthrosis/osteoarthritis. Electronically signed by: Osei Bruce MD 04/11/2025 10:36 AM EST
--- NOTE | ~2025-04-11 | XR_ITS ---
EXAMINATION: X-ray bilateral hands CLINICAL INFORMATION: Pain COMPARISON: None TECHNIQUE: Bilateral hands 3 views FINDINGS: Left hand: No fracture or dislocation. No significant joint space narrowing or marginal osteophytes. No osseous erosion. No abnormal soft tissue calcification. Right hand: No fracture or dislocation. No significant joint space narrowing or marginal osteophytes. No osseous erosion. No abnormal soft tissue calcification. XR/XR Hand Bilat min 3v IMPRESSION: No acute findings Electronically signed by: Rigoberto Maria MD 04/11/2025 03:51 PM EST
--- NOTE | ~2025-04-11 | XR_ITS ---
EXAMINATION: XR BILATERAL HIPS WITH AP PELVIS CLINICAL INFORMATION: M25.50 - Pain in unspecified joint COMPARISON: Correlated to CT abdomen pelvis dated December 23, 2012 TECHNIQUE: AP view pelvis. AP and oblique views both hips. FINDINGS: Bony pelvis is intact. Coxofemoral joints are intact with normal alignment. No lytic or blastic lesions. Mild degenerative changes in the symphysis pubis. XR/XR hip BI w PEL1V IMPRESSION: No acute fracture or dislocation. Negative x-ray hips. Electronically signed by: Osei Bruce MD 04/11/2025 10:34 AM SP [facility]
== END 2025-04-11 09:55 | disposition home or self-care (01) ==
LOC: HO.XRAY 09:54
PROVIDERS: PCP Internal Medicine; Visit Provider Student in an Organized Health Care Education/Training Program
DX: M25.561 Pain in right knee (principal); M25.562 Pain in left knee; M79.641 Pain in right hand; M79.642 Pain in left hand; M25.551 Pain in right hip; M25.552 Pain in left hip
CPT/HCPCS: 73130; 73521; 73560

== ENCOUNTER → 2025-04-11 10:03 | Outpatient (BNV) | payer MEDICAID, SELFPAY | PROVIDERS: PCP Internal Medicine; Visit Provider Radiology Diagnostic Radiology | DX: M25.551 Pain in right hip (principal); M25.552 Pain in left hip; M25.542 Pain in joints of left hand; M25.541 Pain in joints of right hand; M16.0 Bilateral primary osteoarthritis of hip | CPT/HCPCS: 73130; 73521; 73560 ==

== ENCOUNTER 2025-04-13 10:31 | Outpatient (AMB) | payer MEDICAID, SELFPAY ==
[2025-04-13 10:33] VITALS: BP 108/64; PULSE 77; O2SAT 98; BMI 21.6
--- NOTE | 2025-04-13 10:33 | MHC.OFFVIS ---
Vital Signs 04/13/25 10:33 Height 5 ft 5 in Weight 129 lb 10.109 oz BMI 21.6 BP 108/64 Blood Pressure Location Lt brachial Position Sitting Pulse 77 Pulse Source Pulse Oximeter Pulse Oximetry (%) 98 Oxygen Delivery Method Room Air Intake Visit Reasons: joint pain Intake Note: Patient presents for follow up on x-rays, labs for polyarthralgia. Mailroom Personnel Required: No Accompanied by: Self / Same As Patient Allergies Penicillins (PENICILLINS) Allergy (Intermediate, Verified 04/13/25 10:38) RASH HPI Comments Details: This is a 30-year-old female who is here for follow-up for evaluation of ongoing joint pain. Today, she has some joint pain in the wrists, otherwise overall she feels very well. She is recovering from her shoulder surgery nicely. On lab work, patient had a low positive ANA1:40 with negative subsets, negative RF CCP normal inflammatory markers. X-rays of the hands were essentially normal x-ray of the knees showed mild osteoarthritis, x-rays of the hip showed mild degenerative arthritis. Previous history: She had complains of left forearm pain, numbness and tingling and therefore had a left cubital tunnel release on 12/20 2024 with good symptom resolution postoperatively. She also had left shoulder pain and had a left shoulder arthroscopic surgery on 02/11/2025 She states she has joint pain in the left hip and left knee- stiffness in the morning 2 hours and then gets better, soemtimes pain awakens her up at night. She also endorses pain in the knuckles in her hands and wrists, with stiffness in hands in the am lasting for 2 hours. She has been having chest pains sharps pains, and it hurts to take a deep breath. She saw a gas system operator at [facility] [place] and all testing was unremarakable.She states she has episodes of painful eyes and photophobia but was worked up by the senior treasury consultant and there was no remarkable findings. On ROS: she denies photosensitivity, she endorses oral ulcers that are painful intermittently, she endorses Raynaud's phenomena, she denies any miscarriages any blood clots she has 3 healthy children. She also endorses hair fall. No skin rash On family history, she has maternal cousins that have lupus and her mother has rheumatoid arthritis Vital signs reviewed Physical Examination CONSTITUITIONAL Patient alert and cooperative. Well appearing and in no apparent painful distress HEENT Conjunctiva and sclera clear. No lymphadenopathy. CHEST/RESPIRATORY SYSTEM Normal respiratory effort and able to speak in complete sentences. Clear to auscultation bilaterally. No crackles, rales, rhonchi, wheezes heard. CARDIAC SYSTEM Regular rate and rhythm. S1 and S2 heard no murmurs. Radial pulses intact bilaterally MSK Hands Right Hand: Able to make a fist. No swelling or tenderness to palpation of the MCPs, PIPs or DIPs. No deformities noted. Left Hand: Able to make a fist. No swelling or tenderness to palpation of the MCPs, PIPs or DIPs. No deformities noted. Wrists Right Wrist: Full ROM to flexion and extension. No swelling or TTP Left Wrist: Full ROM to flexion and extension. No swelling or TTP Elbows Right Elbow: Full ROM. No swelling or TTP. No TTP of the medial epicondyle. No TTP of the lateral epicondyle Left Elbow: Full ROM. No swelling or TTP. No TTP of the medial epicondyle. No TTP of the lateral epicondyle Shoulders Right shoulder: Full ROM. No swelling noted. No TTP of the AC joint. No TTP of the subacromial bursa. No TTP of the posterior shoulder Left shoulder: Full ROM. No swelling noted. No TTP of the AC joint. No TTP of the subacromial bursa. No TTP of the posterior shoulder Hips Right hip: Good ROM. No pain elicited with hip flexion/internal rotation/external rotation Left hip: Good ROM. No pain elicited with hip flexion/internal rotation/external rotation Hip bursa: No tenderness to palpation bilaterally Knees Right knee: Full ROM. No swelling noted. No TTP of the knee joint line. No TTP of pes anserine bursa Left knee: Full ROM. No swelling noted. No TTP of the knee joint line. No TTP of pes anserine bursa. Ankles Right ankle: Good ankle dorsiflexion and plantar flexion. No swelling. No TTP of the ankle joint Left ankle: Good ankle dorsiflexion and plantar flexion. No swelling. No TTP of the ankle joint Feet Right foot: Negative squeeze test Left foot: Negative squeeze test Tender points? No tenderness to palpation of the bilateral trapezius, supraspinatus, anterior costochondral junctions, bilateral suboccipital muscle insertions SKIN No rashes [facility] Medical History (Updated 04/13/25 @ 10:56 by Kami Garrett MD) Arthritis Anemia History of headache Mass of left side of neck Palpitations Surgical History History of arthroscopic surgery of shoulder Hx of release of tendon (~12/20/24) History of tubal ligation Hx of section Family History Father No problems noted. 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 Physical Exam Vital Signs: Last Vital Signs Pulse 77 04/13/25 10:33 BP 108/64 04/13/25 10:33 Pulse Ox 98 04/13/25 10:33 Oxygen Delivery Method Room Air 04/13/25 10:33 BMI result Body Mass Index 21.6 Assessment & Plan Assessment & Plan (1) Polyarthralgia: Code(s): M25.50 - Pain in unspecified joint Category: Medical (2) Anxiety: Code(s): F41.9 - Anxiety disorder, unspecified Category: Medical (3) Fibromyalgia: Code(s): M79.7 - Fibromyalgia Category: Medical Plan Based on her history, physical exam, lab work and imaging most likely this patient's cause of joint pain is fibromyalgia.I do not see any signs suggestive of an autoimmune rheumatic disease upon my evaluation. Clinical picture consistent with fibromyalgia Discussed management of fibromyalgia with patient. Is a noninflammatory, non-autoimmune central afferent processing disorder leading to a diffuse pain syndrome. I suggested that patient try to address her underlying psychiatric issues, anxiety/depression. I suggested evaluation by a therapist and/or a psychiatrist. Try to follow sleep hygiene practices. Patient would benefit from increased physical activity, either through formal physical therapy or by joining a gym. Advised patient that she should start activity slowly and increase as tolerated. Consider low-impact exercises such as walking, swimming, aqua therapy stretching, yoga. will place referral for psychiatry to address underlying anxiety. Follow-up in 1 year with me as needed Orders: Referrals Psychiatry Referral F41.9 - Anxiety disorder, unspecified, M25.50 - Pain in unspecified joint, M79.7 - Fibromyalgia Coding Level of Care Code Est Pt Level 3 (39129) Diagnoses Polyarthralgia M25.50 Anxiety F41.9 Fibromyalgia M79.7
== END 2025-04-13 11:54 | disposition home or self-care (01) ==
LOC: HO.RHES 10:32
PROVIDERS: PCP Internal Medicine; Visit Provider Student in an Organized Health Care Education/Training Program
DX: M25.50 Pain in unspecified joint (principal); M79.7 Fibromyalgia; F41.9 Anxiety disorder, unspecified
CPT/HCPCS: 99213

== ENCOUNTER → 2025-04-13 10:31 | Outpatient (BNVA) | payer MEDICAID, SELFPAY | PROVIDERS: PCP Internal Medicine; Visit Provider Student in an Organized Health Care Education/Training Program | DX: M25.531 Pain in right wrist (principal); M25.532 Pain in left wrist; M79.7 Fibromyalgia; F41.9 Anxiety disorder, unspecified | CPT/HCPCS: 99212 ==